=== PATIENT | male | born 1975 | race Caucasian/White ===

== ENCOUNTER → 2016-03-31 | Outpatient (CLI) | payer OTHER ==
[~2016-03-31] MED LIST: ATEN-175 PO; CALC0.2510 PO; DARB40IN3 INJ; FURO20TA PO; LOSA100T65 PO; MYCO500T4 PO; NIFE60TA57 PO; PRG1 PO; SODI650T8 PO; TACR1CAP PO; ULT50X PO
[2016-03-31 11:24] LABS: URINE APPEARANCE CLOUDY (CLEAR); URINE BILIRUBIN NEG (NEG); URINE COLOR YELLOW; URINE EPITHELIAL CELL AUTO 0-5 /lpf (0-5); URINE NITRITE NEG (NEG); URINE PH 5.5 (4.5-7.5); UROBILINOGEN NEG (NEG); ZZUR CULT IF INDIC CLEAN CATCH YES
[2016-03-31 11:30] LABS: MANUAL MICROSCOPIC REQUIRED? NO; REVIEW REQ? NO
[2016-03-31 12:15] LABS: URINE PROTIEN/CREAT RATIO 4.4 (0-0.2); URINE TOTAL PROTEIN 437.6 mg/dl (0-11.9)
== END | disposition home or self-care (01) ==
LOC: C.LAB1850 10:17
PROVIDERS: ATTEND Internal Medicine Nephrology
DX: R35.0 Frequency of micturition (principal)

== ENCOUNTER → 2016-08-10 | Outpatient (CLI) | payer OTHER ==
[~2016-08-10] MED LIST changes: -PRG1 PO; +TACR1CAP14 PO
[2016-08-10 12:44] LABS: URINE APPEARANCE CLOUDY (CLEAR); URINE BILIRUBIN NEG (NEG); URINE COLOR YELLOW; URINE EPITHELIAL CELL AUTO 0-5 /lpf (0-5); URINE NITRITE NEG (NEG); URINE PH 5.5 (4.5-7.5); URINE SPECIFIC GRAVITY 1.016 (1.000-1.030); UROBILINOGEN NEG (NEG); ZZUR CULT IF INDIC CLEAN CATCH YES
[2016-08-10 12:54] LABS: MANUAL MICROSCOPIC REQUIRED? NO; REVIEW REQ? NO
[2016-08-10 14:46] LABS: URINE PROTIEN/CREAT RATIO 1.8 (0-0.2); URINE TOTAL PROTEIN 210.8 mg/dl (0-11.9)
== END | disposition home or self-care (01) ==
LOC: C.LAB1850 11:08
PROVIDERS: ATTEND Internal Medicine Nephrology
DX: N18.6 End stage renal disease (principal)

== ENCOUNTER → 2016-08-24 | Outpatient (CLI) | payer OTHER ==
[2016-08-24 13:21] LABS: BASO % 0.7 %; BASO ABS # 0.04 K/uL (0-0.2); COMPLETE YES; EOS % 9.1 %; HEMATOCRIT 32.3 % (42-52); IG% 0.2 %; LYMPH % 16.9 %; LYMPH ABS # 1.04 K/uL (1.2-3.4); MEAN CORPUSCULAR HEMOGLOBIN 28.1 pg (25-34); MEAN CORPUSCULAR HGB CONC 31.9 g/dl (32-36); MEAN PLATELET VOLUME 10.9 fL (7.4-10.4); MONO % 10.2 %; NEUT % 62.9 %; PLATELET COUNT 196 K/uL (130-400); RED BLOOD COUNT 3.67 M/uL (4.7-6.1); WHITE BLOOD COUNT 6.15 K/uL (4.8-10.8)
--- NOTE | 2016-08-28 11:06 | CODING QUERY MEDICAL NECESSITY ---
SUPPORTING DIAGNOSIS NEEDED A supporting diagnosis is required for the test/procedure performed on this patient in order for us to be reimbursed by the patient's insurance. Please provide a supporting diagnosis for the following test/procedure listed below next to the test name along with your signature. *If there is no additional diagnosis for this patient that would support the following test/procedure please document that below next to the test/procedure. Test(s)/Procedure(s) that require a supporting diagnosis: * VITAMIN D, 25-HYDROXY DIAGNOSIS: Provider Signature: Date: Thank you Judi Dejes[employer] Once completed, please kindly fax back to [phone] For questions please call [phone]
[2016-08-29 09:35] LABS: FK506 TACROLIMUS HIGHLY SENS NEGATIVE <1 MCG/L (5-20)
== END | disposition home or self-care (01) ==
LOC: C.LAB1850 12:02
PROVIDERS: ATTEND Internal Medicine Nephrology
DX: N18.6 End stage renal disease (principal); Z94.0 Kidney transplant status; E55.9 Vitamin D deficiency, unspecified

== ENCOUNTER 2016-09-30 22:39 | Inpatient (IN) | payer OTHER ==
[~2016-09-30] VITALS: Ht 180.3 cm; Wt 74.6 kg
[~2016-09-30 22:39] MED LIST changes: -TACR1CAP14 PO
--- NOTE | 2016-09-30 23:13 | EMERGENCY ROOM VISIT NOTE ---
History Report prepared by [place]: Duran Burns Under the Supervision of: Dr. Maryjane Duenas D.O. First contact with patient: 23:02 Chief Complaint: OTHER COMPLAINT Stated Complaint: KIDNEY INFECTION History of Present Illness The patient is a 41 year old male who presents to the Emergency Room with complaints of moderately cloudy urine that began today. The patient is currently awaiting a kidney transplant and has a donor lined up. Because of this , he has not started on dialysis. However, he had his surgery postponed twice due to other circumstances. He just wants to make sure that he is healthy and that everything is normal. He notes that he is having chills and diaphoresis as well, but he did not take his temperature. He also states that he "does not feel right." He has had a UTI in the past, but states that this does not feel like a UTI because there is no pain. He denies any other abnormal urinary symptoms as well. He also denies any nausea, vomiting, chest pain, shortness of breath, abdominal pain, back pain, melena, hematochezia, diarrhea, or rashes. He denies any recent sick contacts. He denies any changes in his medications, and he has been keeping up with his current dosages. He does not know what his last creatinine result was. He also notes that he has been keeping up with his fluids. Source of History: patient Onset: today Position: other () Symptom Intensity: moderate Quality: other (Cloudy urine) Timing: constant Associated Symptoms: + chills, + diaphoresis, No fevers, No chest pain, No SOB, No nausea, No vomiting, No abdominal pain, No melena, No hematochezia, No diarrhea, No rash Review of Systems See HPI for pertinent positives & negatives. A total of 10 systems reviewed and were otherwise negative. Past Medical & Surgical Medical Problems: (1) Decreased GFR (2) Elevated serum creatinine (3) Hyperkalemia (4) Metabolic acidosis (5) Renal transplant disorder (6) Sepsis Surgical Problems: (1) History of kidney transplant Family History Patient reports no known family medical history. Social History Smoking Status: Never Smoker Drug Use: none Marital Status: single Housing Status: lives with family Occupation Status: employed Current/Historical Medications Scheduled Atenolol (Tenormin), 100 MG PO QPM Calcitriol (Rocaltrol Cap), 0.25 MCG PO 3XWK Darbepoetin Barrett-Polysorbate 8 (Aranesp Albumin Free), 1 DOSE INJ MONTHLY Furosemide (Lasix), 20 MG PO QAM Losartan Potassium (Cozaar), 100 MG PO QPM Mycophenolate Mofetil (Cellcept), 500 MG PO BID Nifedipine Ext Rel (Procardia Xl Ext Rel), 60 MG PO BID Sodium Bicarbonate (Sodium Bicarbonate), 650 MG PO BID Tacrolimus (Prograf), 4 MG PO BID Scheduled PRN Tramadol HCl (Tramadol HCl), 50 MG PO Q6 PRN for Pain Allergies Coded Allergies: Sulfamethoxazole w/Trimethoprim (Verified Allergy, Mild, Rash, 02/09/16) Physical Exam Vital Signs Date Time Temp Pulse Resp B/P (MAP) Pulse Ox O2 Delivery O2 Flow Rate FiO2 10/01/16 01:25 37.7 108 18 159/87 97 Room Air 10/01/16 01:06 37.7 09/30/16 23:30 109 18 159/90 98 Room Air 09/30/16 22:43 37.0 124 18 153/83 95 Room Air Physical Exam GENERAL: alert, well appearing, well nourished, no distress, non-toxic EYE EXAM: normal conjunctiva, PERRL and EOM's grossly intact OROPHARYNX: no exudate, no erythema, lips, buccal mucosa, and tongue normal and mucous membranes are moist NECK: supple, no nuchal rigidity, no adenopathy, non-tender LUNGS: Clear to auscultation. Normal chest wall mechanics HEART: no murmurs, S1 normal and S2 normal ABDOMEN: abdomen soft, non-tender, normo-active bowel sounds, no masses, no rebound or guarding. BACK: Back is symmetrical on inspection and there is no deformity, no midline tenderness, no CVA tenderness. SKIN: no rashes and no bruising UPPER EXTREMITIES: upper extremities are grossly normal. LOWER EXTREMITIES: No pitting edema. NEURO EXAM: Normal sensorium, cranial nerves II-XII grossly intact, normal speech, no gross weakness of arms, no gross weakness of legs. Medical Decision & Procedures ER Provider Diagnostic Interpretation: Radiology results have been interpreted by me. CHEST/ABDOMEN X-RAY: No cardiomegaly, no pulmonary effusion, no widened mediastina, no focal infiltrates. No definite small bowel obstruction, scattered stool, no free air. Per pa Laboratory Results Test 09/30/16 23:20 Immature Granulocyte % (Auto) 0.2 % White Blood Count 9.79 K/uL (4.8-10.8) Red Blood Count 3.33 M/uL (4.7-6.1) Hemoglobin 9.5 g/dL (14.0-18.0) Hematocrit 28.4 % (42-52) Mean Corpuscular Volume 85.3 fL (80-100) Mean Corpuscular Hemoglobin 28.5 pg (25-34) Mean Corpuscular Hemoglobin Concent 33.5 g/dl (32-36) Platelet Count 224 K/uL (130-400) Mean Platelet Volume 10.1 fL (7.4-10.4) Neutrophils (%) (Auto) 67.7 % Lymphocytes (%) (Auto) 15.7 % Monocytes (%) (Auto) 9.3 % Eosinophils (%) (Auto) 6.7 % Basophils (%) (Auto) 0.4 % Neutrophils # (Auto) 6.62 K/uL (1.4-6.5) Lymphocytes # (Auto) 1.54 K/uL (1.2-3.4) Monocytes # (Auto) 0.91 K/uL (0.11-0.59) Eosinophils # (Auto) 0.66 K/uL (0-0.5) Basophils # (Auto) 0.04 K/uL (0-0.2) Immature Granulocyte # (Auto) 0.02 K/uL (0.00-0.02) Prothrombin Time 10.3 SECONDS (9.0-12.0) Prothromb Time International Ratio 1.0 (0.9-1.1) Urine Color YELLOW Urine Appearance TURBID (CLEAR) Urine pH 5.5 (4.5-7.5) Urine Specific [place] 1.015 (1.000-1.030) Urine Protein 3+ (NEG) Urine Glucose (UA) NEG (NEG) Urine Ketones NEG (NEG) Urine Occult Blood 3+ (NEG) Urine Nitrite NEG (NEG) Urine Bilirubin NEG (NEG) Urine Urobilinogen NEG (NEG) Urine Leukocyte Esterase LARGE (NEG) Urine WBC (Auto) >30 /hpf (0-5) Urine RBC (Auto) >30 /hpf (0-4) Urine Hyaline Casts (Auto) 0 /lpf (0-5) Urine Epithelial Cells (Auto) >30 /lpf (0-5) Urine Bacteria (Auto) NEG (NEG) Urine Pathogenic Casts /lpf (0) Urine Yeast (Auto) (NONE PRSENT) Magnesium Level 2.1 mg/dl (1.8-2.4) Total Bilirubin 0.3 mg/dl (0.2-1) Aspartate Amino Transf (AST/SGOT) 14 U/L (15-37) Alanine Aminotransferase (ALT/SGPT) 12 U/L (12-78) Alkaline Phosphatase 72 U/L (45-117) Total Protein 7.2 gm/dl (6.4-8.2) Albumin 2.7 gm/dl (3.4-5.0) Globulin 4.5 gm/dl (2.5-4.0) Albumin/Globulin Ratio 0.6 (0.9-2) Monoscreen NEG (NEG) Laboratory results per my review. Medications Administered Medications (Trade) Dose Ordered Sig/Willy Route Start Time Stop Time Status Last Admin Dose Admin Sodium Chloride 1,000 ml @ 250 mls/hr Q4H STAT IV 10/01/16 00:57 10/01/16 04:56 DC 10/01/16 01:19 250 MLS/HR Ceftriaxone Sodium (Rocephin Inj) 1 gm NOW STAT IV 10/01/16 01:23 10/01/16 01:24 DC 10/01/16 01:34 1 GM Acetaminophen (Tylenol Tab) 1,000 mg NOW STAT PO 10/01/16 01:28 10/01/16 01:29 DC 10/01/16 01:34 1,000 MG ECG Indication: diaphoresis Rate (beats per minute): 106 Rhythm: sinus tachycardia Findings: no acute ischemic change, no ectopy (Normal axis, normal interval) ED Course 2302: The patient was evaluated in room B8. A complete history and physical exam was performed. 0057: Ordered Sodium Chloride 1000 ml @ 250 mls/hr IV 0123: Ordered Rocephin Inj 1 gm IV 0128: Ordered Tylenol Tab 1000 mg PO 0205: Upon reevaluation, the patient is resting. I discussed the findings and the treatment plan with the patient. He expresses agreement and understanding. I spoke with Dr. Dominguez of the [facility] Hospitalist Service. He will be evaluated for further management. Medical Decision Patient with complicated renal history status post prior transplant and on transplant list again a [facility]. Patient states taking all medications as prescribed, however today began feeling worse and concern for possible infection. Patient's urine concerning for possible evolving infection, creatinine appears worse than prior. Patient states recent outpatient creatinine was 7. Patient currently not doing hemodialysis, sees Dr. Kaur for nephrology locally. Prior cultures of urine and 2016 grown staph aureus that was pansensitive. Patient was initially given one dose of Rocephin here given concern for worsening renal function, and known sulfa allergy. Both blood and urine cultures sent as a precaution. Other labs reassuring, no hyperkalemia or indication for emergent dialysis. Patient's heart rate improved here, blood pressure stable, doubt bacteremia/sepsis. Patient admitted to medicine, discussed renal consult. Patient aware of all findings and agreeable with plan. Doubt other GI or vascular pathology. No evidence for acute congestive heart failure. Medication Reconcilliation Current Medication List: was personally reviewed by me Blood Pressure Screening Patient's blood pressure: Elevated blood pressure Blood pressure disposition: Referred to PCP Consults Time Called: 0200 Consulting Physician: Dr. Dominguez - [facility] Returned Call: [phone] He will be evaluating the patient for further management and care. Impression Primary Impression: Acute on chronic kidney failure Additional Impression: UTI (urinary tract infection) Scribe Attestation The scribe's documentation has been prepared under my direction and personally reviewed by me in its entirety. I confirm that the note above accurately reflects all work, treatment, procedures, and medical decision making performed by me. Departure Information Dispostion Being Evaluated By Hospitalist Referrals Gabi Aragon M.D. (PCP) Patient Instructions My [facility] Problem Qualifiers Primary Impression: Acute on chronic kidney failure Acute renal failure type: unspecified Chronic kidney disease stage: unspecified stage Qualified Codes: N17.9 - Acute kidney failure, unspecified; N18.9 - Chronic kidney disease, unspecified Additional Impression: UTI (urinary tract infection) Urinary tract infection type: acute cystitis Hematuria presence: with hematuria Qualified Codes: N30.01 - Acute cystitis with hematuria
[2016-09-30 23:41] LABS: BASO % 0.4 %; BASO ABS # 0.04 K/uL (0-0.2); COMPLETE YES; EOS % 6.7 %; HEMATOCRIT 28.4 % (42-52); IG% 0.2 %; LYMPH % 15.7 %; LYMPH ABS # 1.54 K/uL (1.2-3.4); MEAN CELL VOLUME 85.3 fL (80-100); MEAN CORPUSCULAR HEMOGLOBIN 28.5 pg (25-34); MEAN CORPUSCULAR HGB CONC 33.5 g/dl (32-36); MEAN PLATELET VOLUME 10.1 fL (7.4-10.4); MONO % 9.3 %; NEUT % 67.7 %; PLATELET COUNT 224 K/uL (130-400); RED BLOOD COUNT 3.33 M/uL (4.7-6.1); WHITE BLOOD COUNT 9.79 K/uL (4.8-10.8)
[2016-09-30 23:52] LABS: PROTHROMBIN TIME (PATIENT) 10.3 SECONDS (9.0-12.0)
[2016-09-30 23:55] LABS: URINE APPEARANCE TURBID (CLEAR); URINE BILIRUBIN NEG (NEG); URINE COLOR YELLOW; URINE EPITHELIAL CELL AUTO >30 /lpf (0-5); URINE NITRITE NEG (NEG); URINE PH 5.5 (4.5-7.5); URINE SPECIFIC GRAVITY 1.015 (1.000-1.030); UROBILINOGEN NEG (NEG); ZZUR CULT IF INDIC CLEAN CATCH YES
[2016-10-01] LABS: MANUAL MICROSCOPIC REQUIRED? NO; REVIEW REQ? YES
[2016-10-01 00:25] LABS: ALB/GLOB RATIO 0.6 (0.9-2); BUN/CREATININE RATIO 8.4 (10-20); CALCIUM 8.3 mg/dl (8.5-10.1); CREATININE 8.7 mg/dl (0.60-1.40); MAGNESIUM 2.1 mg/dl (1.8-2.4); POTASSIUM 4.1 mmol/L (3.5-5.1)
[2016-10-01] MEDS ORDERED: SODIUM CHLORIDE 0.9% 1000ML 1,000 ML IV STA (00:57)
[2016-10-01] MEDS ORDERED: CEFTRIAXONE SOD INJ 1 GM ADDVIAL IV STA (01:23)
[2016-10-01] MEDS ORDERED: ACETAMINOPHEN 500 MG TAB PO STA (01:28)
[2016-10-01] MEDS ORDERED: POLYETHYLENE (MIRALAX) 17 GM PACK PO PRN (03:15)
[2016-10-01] MEDS ORDERED: ACETAMINOPHEN 325 MG TAB PO PRN (03:15)
[2016-10-01] MEDS ORDERED: ZOLPIDEM TARTRATE 5 MG TAB PO PRN ×2 (03:15)
[2016-10-01] MEDS ORDERED: ALUMINUM/MAGNESIUM/SIMETH (MAALOX MAX) 30 ML UDC PO PRN (03:15)
[2016-10-01] MEDS ORDERED: ONDANSETRON INJ 2 MG/ML 2 ML VIAL IV PRN (03:15)
[2016-10-01] MEDS ORDERED: TRAMADOL HCL 50 MG TAB PO PRN (03:15)
[2016-10-01] MEDS ORDERED: MAGNESIUM HYDROXIDE SUSP 30 ML UDC PO PRN (03:15)
--- NOTE | 2016-10-01 03:28 | History and Physical ---
History & Physical Date & Time of Service: Oct 01, 2016 at 02:55 Chief Complaint: Kidney Infection Primary Care Physician: Gabi Aragon M.D. History of Present Illness Source: patient 41M with a PMHx of renal transplant at age 17 p/w a one day history of weakness and cloudy urine. The sees Dr. Kaur as outpatient. He is on a kidney donor list and has had his transplant delayed twice in [place] for unknown reasons. The pt states that in the past year or so his creatinine has slowly climbed from 2-3 to over 7. He has had dialysis and has a fistula in his right antecubital fossa, he however has had his dialysis postponed recently because the thinking was that he was going to go for a renal transplant. he currently still has his two biological kidneys and a transplanted kidney in his lower right abdomen. He denies any focal complaints. He is not in any pain anywhere. Of note he has had around 4 UTIs in the past year and he does not know why he gets them. He doesn't have a lifelong history of UTIs. Cultures on previous cultures grew cabrera sensitive Staph Aureus. He is allergic to Bactrim. He has had dysuria in the past with his previous UTIs, denies having dysuria now. ROS: No chest pain, no SOB, no dyspnea on exertion, no palpitations, no fevers, no chills, no nausea, no vomiting, no diarrhea, no dysuria, no rash. SHx: Not presently working, non smoker, does not drink alcohol. Past Medical/Surgical History Surgical Problems: (1) History of kidney transplant Status: Chronic Family History Patient reports no known family medical history. Social History Smoking Status: Never Smoker Smokeless Tobacco Use: No Alcohol Use: none Drug Use: none Marital Status: single Occupational Status: employed Immunizations History of Influenza Vaccine: Unknown History of Tetanus Vaccine?: Unknown History of Pneumococcal: Unknown History of Hepatitis B Vaccine: Unknown Multi-Drug Resistant Organisms History of MDRO: No Allergies Coded Allergies: Sulfamethoxazole w/Trimethoprim (Verified Allergy, Mild, Rash, 02/09/16) Home Medications Scheduled Atenolol (Tenormin), 100 MG PO QPM Calcitriol (Rocaltrol Cap), 0.25 MCG PO 3XWK Darbepoetin Barrett-Polysorbate 8 (Aranesp Albumin Free), 1 DOSE INJ MONTHLY Furosemide (Lasix), 20 MG PO QAM Losartan Potassium (Cozaar), 100 MG PO QPM Mycophenolate Mofetil (Cellcept), 500 MG PO BID Nifedipine Ext Rel (Procardia Xl Ext Rel), 60 MG PO BID Sodium Bicarbonate (Sodium Bicarbonate), 650 MG PO BID Tacrolimus (Prograf), 4 MG PO BID Scheduled PRN Tramadol HCl (Tramadol HCl), 50 MG PO Q6 PRN for Pain Review of Systems Constitutional: No fever, No chills Respiratory: No cough, No sputum, No wheezing, No shortness of breath Cardiovascular: No chest pain Abdomen: No pain, No nausea, No vomiting Musculoskeletal: No joint pain, No swelling, No calf pain Genitourinary - Male: No hematuria, No dysuria, No urinary frequency, No urinary urgency, No urinary hesitancy Psychiatric: No depression symptoms Integumentary: No rash, No itch Physical Exam Vital Signs Date Time Temp Pulse Resp B/P (MAP) Pulse Ox O2 Delivery O2 Flow Rate FiO2 10/01/16 01:25 37.7 108 18 159/87 97 Room Air 10/01/16 01:06 37.7 09/30/16 23:30 109 18 159/90 98 Room Air 09/30/16 22:43 37.0 124 18 153/83 95 Room Air General Appearance: WD/WN, no apparent distress Respiratory/Chest: chest non-tender, lungs clear, normal breath sounds, no respiratory distress, no accessory muscle use Cardiovascular: regular rate, rhythm, no edema, no gallop, no JVD, no murmur, normal peripheral pulses Abdomen/GI: normal bowel sounds, non tender, no organomegaly, no pulsatile mass , + pertinent finding (hard abdomen, no gaurding, non tender.) Back: normal inspection, no CVA tenderness, no muscle spasm Extremities/Musculoskelatal: normal inspection, no calf tenderness, no pedal edema, + pertinent finding (AV fistula in place in R antecubital fossa) Neurologic/Psych: gin pole operator II-XII nml as tested, no motor/sensory deficits, alert, normal mood/affect, normal reflexes, oriented x 3 Diagnostics Laboratory Results Results Past 24 Hours Test 09/30/16 23:20 Range/Units White Blood Count 9.79 4.8-10.8 K/uL Red Blood Count 3.33 4.7-6.1 M/uL Hemoglobin 9.5 14.0-18.0 g/dL Hematocrit 28.4 42-52 % Mean Corpuscular Volume 85.3 80-100 fL Mean Corpuscular Hemoglobin 28.5 25-34 pg Mean Corpuscular Hemoglobin Concent 33.5 32-36 g/dl Platelet Count 224 130-400 K/uL Mean Platelet Volume 10.1 7.4-10.4 fL Neutrophils (%) (Auto) 67.7 % Lymphocytes (%) (Auto) 15.7 % Monocytes (%) (Auto) 9.3 % Eosinophils (%) (Auto) 6.7 % Basophils (%) (Auto) 0.4 % Neutrophils # (Auto) 6.62 1.4-6.5 K/uL Lymphocytes # (Auto) 1.54 1.2-3.4 K/uL Monocytes # (Auto) 0.91 0.11-0.59 K/uL Eosinophils # (Auto) 0.66 0-0.5 K/uL Basophils # (Auto) 0.04 0-0.2 K/uL RDW Standard Deviation 46.1 36.4-46.3 fL RDW Coefficient of Variation 14.5 11.5-14.5 % Immature Granulocyte % (Auto) 0.2 % Immature Granulocyte # (Auto) 0.02 0.00-0.02 K/uL Prothrombin Time 10.3 9.0-12.0 SECONDS Prothromb Time International Ratio 1.0 0.9-1.1 Urine Color YELLOW Urine Appearance TURBID CLEAR Urine pH 5.5 4.5-7.5 Urine Specific [place] 1.015 1.000-1.030 Urine Protein 3+ NEG Urine Glucose (UA) NEG NEG Urine Ketones NEG NEG Urine Occult Blood 3+ NEG Urine Nitrite NEG NEG Urine Bilirubin NEG NEG Urine Urobilinogen NEG NEG Urine Leukocyte Esterase LARGE NEG Urine WBC (Auto) >30 0-5 /hpf Urine RBC (Auto) >30 0-4 /hpf Urine Hyaline Casts (Auto) 0 0-5 /lpf Urine Epithelial Cells (Auto) >30 0-5 /lpf Urine Bacteria (Auto) NEG NEG Urine Pathogenic Casts 0 /lpf Urine Yeast (Auto) NONE PRSENT Sodium Level 139 136-145 mmol/L Potassium Level 4.1 3.5-5.1 mmol/L Chloride Level 110 98-107 mmol/L Carbon Dioxide Level 17 21-32 mmol/L Anion Gap 12.0 3-11 mmol/L Blood Urea Nitrogen 73 7-18 mg/dl Creatinine 8.70 0.60-1.40 mg/dl Est Creatinine Clear Calc Drug Dose 11.7 ml/min Estimated GFR () 7.8 Estimated GFR (Non- 6.7 BUN/Creatinine Ratio 8.4 10-20 Random Glucose 111 70-99 mg/dl Calcium Level 8.3 8.5-10.1 mg/dl Magnesium Level 2.1 1.8-2.4 mg/dl Total Bilirubin 0.3 0.2-1 mg/dl Aspartate Amino Transf (AST/SGOT) 14 15-37 U/L Alanine Aminotransferase (ALT/SGPT) 12 12-78 U/L Alkaline Phosphatase 72 45-117 U/L Total Protein 7.2 6.4-8.2 gm/dl Albumin 2.7 3.4-5.0 gm/dl Globulin 4.5 2.5-4.0 gm/dl Albumin/Globulin Ratio 0.6 0.9-2 Monoscreen NEG NEG Microbiology Results 10/01/16 Blood Culture, Received Pending 10/01/16 Blood Culture, Received Pending 09/30/16 Urine Culture, Received Pending Impression Assessment and Plan 41M with a PMHx of renal transplant at age 17 p/w a one day history of weakness and cloudy urine. Creatinine is 8.7. UA is dirty, will send for culture. Starting on Zosyn and Vanco empirically. Nephro (Dr. Kaur) consulted. Elevated Creatinine 2/2 renal failure - Nephro (Dr. Kaur) on board. - Creatinine is 8.7, prior to February 2016 baseline appeared to be from 3-4. - Pt has had dialysis in the past, will likely need to be dialyzed. Sepsis 2/2 UTI - Urine had LE and WBC, will send for culture. - Previous cultures grew Staph Aureus. - Has had 4 UTIs in the past year. - Will treat with Zosyn and Vancomycin. - Follow up blood cultures. - Follow up MRSA swab. S/p Renal Transplant continue home medication regime: - Atenolol 100mg PO QPM - Calcitriol 0.25mcg PO 3xweek. (M,W,F) - Lasix 20mg PO QAM - Losartan 100mg PO QPM - Mycophenolate Mofetil 500mg PO BID - Nifedipine 60mg PO BID - Sodium Bicarb 650mg PO BID - Tacrolimus 4mg PO BID Diet - Renal Diet DVT Proph: Hep SQ BID, SCDs Dispo: Med Surg Full Code Attending Addendum: I have physically seen and examined this patient, have supervised the medical residents activities, and agree with the H&P as noted above with the following exceptions: NONE The patient is awake, well-developed and adequately nourished, alert and oriented 3, normocephalic and atraumatic, lying in bed and in no acute distress. HEENT--PERRL, EOMI, mucous membranes and oropharynx normal. Neck--supple, no JVD or bruits, thyroid normal, trachea midline, no adenopathy. Heart--normal S1 and S2, no extra beats, no murmurs, rubs or gallops. Lungs--clear bilaterally with good air movement, no respiratory distress, no accessory muscle use. Abdomen--normal bowel sounds and soft, nontender and nondistended, no hernias or masses, no organomegaly. Extremities--no cyanosis, clubbing or edema. There are good distal pulses b/l. Dermatologic--normal skin turgor, normal color, warm and dry, no abnormal lymph nodes, no rash. Neurologic--cranial nerves II through XII grossly intact, motor and sensory examination normal. Rheumatologic--normal range of motion, nontender, muscles and joints. Psychiatric--normal affect. Assessment and Plan: 1. Status post renal transplant/acute on chronic renal transplant failure/UTI/ hypertension--patient be admitted to the medical surgical floor. History of staph aureus UTI among 4 UTIs in the past year. Empiric Treatment vancomycin IV and Zosyn IV. Follow urine culture and sensitivities, and blood cultures. Continue atenolol 100 mg by mouth every evening, losartan 100 mg by mouth every evening, nifedipine 60 mg by mouth twice a day, sodium bicarbonate 650 mg by mouth twice a day, Lasix 20 mg by mouth every morning, tacrolimus 4 mg by mouth twice a day and mycophenolate 500 mg by mouth twice a day. Consult his slitter and rewinder Dr. Kaur. Level of Care Med/Surg Advanced Directives Existing Advance Directive: No Existing Living Will: No Existing Power of Inspector Mechanical: No Resuscitation Status FULL RESUSCITATION VTE Prophylaxis Risk Level: Moderate Given or contraindicated: SCD's Social Service Consult None Apply Resident Involvement: Resident Care Provided Care Provided: Adult Hospital Medicine
[2016-10-01] MEDS ORDERED: VANCOMYCIN CONSULT ACTIVE PRN (03:45)
[2016-10-01] MEDS ORDERED: PIPERACILL/TAZOBAC CONSULT ACTIVE PRN (04:00)
[2016-10-01 04:54] VITALS: BP 165/87; PULSE 98; TEMP 37.1; Ht 180.3 cm; Wt 74.6 kg
[2016-10-01 04:56] VITALS: O2SAT 99
[2016-10-01] MEDS ORDERED: VANCOMYCIN INJ 1,600 MG in SODIUM CHLORIDE 0.9% 500ML 500 ML IV ONE (05:45)
[2016-10-01] MEDS ORDERED: PIPERACILL/TAZOBAC IV 3.375 GM in DEXTROSE 5% 100ML 100 ML IV ONE (05:45)
--- NOTE | 2016-10-01 05:45 | DIAGNOSTIC IMAGING REPORT ---
ABDOMEN 2VIEW W/PA CHEST RTN CLINICAL HISTORY: subjective f/c dyspnea COMPARISON STUDY: No previous studies for comparison. FINDINGS: Moderate increase in fecal load a sending and transverse colon. Nonobstructive bowel pattern. Lungs are clear. Diaphragms smooth. IMPRESSION: 1. Negative chest. 2. Increased fecal load within the a sending and transverse colon The above report was generated using voice recognition software. It may contain grammatical, syntax or spelling errors. Electronically signed by: Declan Copeland M.D. 10/01/2016 5:44 AM Dictated Date/Time: 10/01/2016 5:41 AM
[2016-10-01] MEDS: HEPARIN SOD 5000 UNIT/0.5 ML CARP SQ SCH ×3 (06:00→20:38)
[2016-10-01 07:14] VITALS: BP 158/79; PULSE 91; TEMP 36.9; O2SAT 99
[2016-10-01 07:54] LABS: HEMATOCRIT 26.3 % (42-52); MEAN CELL VOLUME 85.7 fL (80-100); MEAN CORPUSCULAR HEMOGLOBIN 28.7 pg (25-34); MEAN CORPUSCULAR HGB CONC 33.5 g/dl (32-36); MEAN PLATELET VOLUME 9.9 fL (7.4-10.4); PLATELET COUNT 184 K/uL (130-400); RED BLOOD COUNT 3.07 M/uL (4.7-6.1); WHITE BLOOD COUNT 8.08 K/uL (4.8-10.8)
[2016-10-01 08:00] VITALS: O2SAT 99
[2016-10-01 08:36] LABS: BUN/CREATININE RATIO 8.7 (10-20); CREATININE 8.4 mg/dl (0.60-1.40); POTASSIUM 4.5 mmol/L (3.5-5.1)
[2016-10-01] MEDS ORDERED: MYCOPHENOLATE MOFETIL 250 MG CAP (CELLCEPT) PO SCH (09:00)
[2016-10-01] MEDS ORDERED: TACROLIMUS 1 MG CAP PO SCH (09:00)
[2016-10-01] MEDS ORDERED: CALCITRIOL 0.25 MCG CAP PO SCH (09:00)
[2016-10-01] MEDS ORDERED: SODIUM BICARBONATE 650 MG TAB PO SCH (09:00)
[2016-10-01] MEDS: FUROSEMIDE 20 MG TAB PO SCH (09:00)
[2016-10-01] MEDS: PIPERACILL/TAZOBAC IV 3.375 GM in DEXTROSE 5% 100ML 100 ML IV SCH ×2 (11:31→23:20)
--- NOTE | 2016-10-01 12:03 | Nephrology Consultation ---
Nephrology Consultation Date & Providers Date of Consultation: Oct 01, 2016. Primary Care Provider: Gabi Aragon M.D. Referring Provider: Reason for Consultation ESRD with functional renal transplant History of Present Illness Mr. 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 He underwent donor kidney transplant at the age of 17. Prior to transplant he was maintained on both HD and PD. He noted preference for HD if dialysis is needed. He has a functional renal allograft with advanced impairment (creatinine was 5.6 mg/dL on August 23). Transplant was performed at [facility]. nutrition coordinator is Kasey Hood ([phone]). Suraj has been scheduled for a second living donor transplant. This was originally scheduled for September 15 but this was postponed due to the surgeon needing to reschedule. Suraj was then involved in a pretransplant evaluation for persistent pyuria and microscopic hematuria. Suraj now reports, after being rescheduled twice, living-donor transplant is currently scheduled for October 24. He reports that sometime between September 15 and a cystoscopy with bladder biopsy was performed at [facility] with reportedly showed non specific inflammation. He has also undergone urologic evaluation by Dr. Gonzalez locally. Suraj has a complicated history of pyuria and microscopic hematuria. Suraj was admitted to [facility] in February 2016 with dysuria as well as suprapubic tenderness. He received IV daptomycin and was eventually discharged home on oral Keflex. He completed 7 days of Keflex. Culture was positive for pansensitive staph. Unfortunately, symptoms did not initially improve and he was readmitted with persistent urinary frequency and discomfort with notable suprapubic pain and some mild tenderness over the lateral aspect of his renal allograft. Culture on admission negative. He received daptomycin and reported some improvement in symptoms during the hospitalization. Bladder infused antibiotic therapy was considered but ultimately deferred. He has been treated with extended course of Augmentin and cephalexin since that time and persistent symptoms of frequency and urgency did eventually improve. CT scan as well as renal ultrasound were obtained documenting mild dilation of the renal collecting system in his allograft. Resistive indices in the transplanted kidney were normal. Mr. Platt has had several episodes of gross hematuria over the past year. He was experiencing frequency and nocturia during most of these episodes. He describes episodes of passing bright pink urine which resolved within 24 hours. There was persistent microscopic hematuria. Urine cytology was previously negative for malignancy. CT the abdomen and pelvis did not show any other obvious pathologic etiology. Suraj presented to [facility] yesterday with changes in his urine, weakness, feeling cold and discomfort with voiding. He reported turbid, foul smelling urine. He denied gross hematuria or clots. He denies specific dysuria. He does not have suprapubic or bladder tenderness. He denies flank pain. He did not have specific fevers or shaking chills. Suraj had spent 2 days with friends and was without NaHCO3 for a couple of days. He has been taking tacrolimus and his antihypertensive medications. Suraj states his appetite is slightly decreased but fair. He has had a bad taste in his mouth for the past 24 hours. He denies anorexia or nausea. He denies abdominal pain, constipation or diarrhea. He has not been sleeping well. He reports some insomnia and daytime fatigue. Activity tolerance has not recently changed and is reportedly acceptable. He has a chronic metabolic acidosis as well as anemia of CKD and CKD/MBD with secondary hyperparathyroidism. Past medical history is also notable for hypertension. In preparation for potential dialysis, he underwent cephalic vein AVF placement on Jul [address] Rodrigues. He has completed initial TOPs education with Sara Duenas. He has requested in-center HD at [facility] in [place] if he needs dialysis. 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 Rodrigues), HD catheter and PD catheter placement Allergies Coded Allergies: Sulfamethoxazole w/Trimethoprim (Verified Allergy, Mild, Rash, 02/09/16) Inpatient Medications Current Inpatient Medications Medications (Trade) Dose Ordered Sig/Willy Route Start Time Stop Time Status Last Admin Dose Admin Heparin Sodium (Porcine) (Heparin Sq 5000 Unit/0.5ml) 5,000 unit Q8H SQ 10/01/16 06:00 10/31/16 05:59 Acetaminophen (Tylenol Tab) 650 mg Q4H PRN PO 10/01/16 03:15 10/31/16 03:14 Al Hydrox/Mg Hydrox/Simethicone (Maalox Max Susp) 15 ml Q4H PRN PO 10/01/16 03:15 10/31/16 03:14 Magnesium Hydroxide (Milk Of Magnesia Susp) 30 ml Q6H PRN PO 10/01/16 03:15 10/31/16 03:14 Polyethylene (Miralax Powder Packet) 17 gm DAILY PRN PO 10/01/16 03:15 10/31/16 03:14 Zolpidem Tartrate (Ambien Tab) 5 mg HSZ PRN PO 10/01/16 03:15 10/31/16 03:14 Ondansetron HCl (Zofran Inj) 4 mg Q6H PRN IV 10/01/16 03:15 10/31/16 03:14 Zolpidem Tartrate (Ambien Tab) 5 mg HSZ PRN PO 10/01/16 03:15 10/31/16 03:14 Piperacillin Sod/ Tazobactam Sod 3.375 gm/Dextrose 115 ml @ 28.75 mls/ hr Q12@0000,1200 IV 10/01/16 12:00 10/11/16 11:59 Atenolol (Tenormin Tab) 100 mg QPM PO 10/01/16 21:00 10/31/16 20:59 Furosemide (Lasix Tab) 20 mg QAM PO 10/01/16 09:00 10/31/16 08:59 Losartan Potassium (coZAAR TAB) 100 mg QPM PO 10/01/16 21:00 10/31/16 20:59 Mycophenolate Mofetil (Cellcept Cap) 500 mg BID PO 10/01/16 09:00 10/31/16 08:59 10/01/16 08:05 500 MG Nifedipine (Procardia Xl Tab) 60 mg BID PO 10/01/16 09:00 10/31/16 08:59 Sodium Bicarbonate (Sodium Bicarbonate Tab) 650 mg BID PO 10/01/16 09:00 10/31/16 08:59 10/01/16 08:04 650 MG Tacrolimus (Prograf Cap) 4 mg BID PO 10/01/16 09:00 10/31/16 08:59 10/01/16 08:05 4 MG Tramadol HCl (Ultram Tab) 50 mg Q6 PRN PO 10/01/16 03:15 10/31/16 03:14 Calcitriol (Rocaltrol Cap) 0.25 mcg MoWeFr@0900 PO 10/02/16 09:00 11/01/16 08:59 Vancomycin HCl (Consult) 1 ea UD PRN N/A 10/01/16 03:45 10/31/16 03:44 Piperacillin Sod/ Tazobactam Sod (Consult) 1 ea UD PRN N/A 10/01/16 04:00 10/31/16 03:59 Family History Patient reports no known family medical history. Social History Smoking Status: Unknown if Ever Smoked Drug Use: none Marital Status: single Occupation: employed Review of Systems A complete review of systems was performed. Pertinent positives are noted above. All other systems are negative. Physical Exam Date Time Temp Pulse Resp B/P (MAP) Pulse Ox O2 Delivery O2 Flow Rate FiO2 10/01/16 08:00 99 Room Air 10/01/16 07:14 36.9 91 18 158/79 (105) 99 Room Air 10/01/16 04:56 99 Room Air 10/01/16 04:54 37.1 98 98 165/87 10/01/16 03:32 36.6 105 18 162/83 97 Room Air 10/01/16 01:25 37.7 108 18 159/87 97 Room Air 10/01/16 01:06 37.7 09/30/16 23:30 109 18 159/90 98 Room Air 09/30/16 22:43 37.0 124 18 153/83 95 Room Air General Appearance: WD/WN, no apparent distress Head: normocephalic, atraumatic Eyes: normal inspection, sclerae normal ENT: normal ENT inspection, pharynx normal Neck: supple, no JVD Respiratory/Chest: lungs clear, no respiratory distress, no accessory muscle use Cardiovascular: regular rate, rhythm Abdomen/GI: non tender, soft, + pertinent finding (Allograft without tenderness or bruit) Back: normal inspection, no CVA tenderness Extremities/Musculoskelatal: normal inspection, no pedal edema, + pertinent finding (AVF with thrill and bruit) Neurologic/Psych: alert, oriented x 3 Laboratory Results Last 24 Hours Test 09/30/16 23:20 10/01/16 07:32 White Blood Count 9.79 K/uL 8.08 K/uL Red Blood Count 3.33 M/uL 3.07 M/uL Hemoglobin 9.5 g/dL 8.8 g/dL Hematocrit 28.4 % 26.3 % Mean Corpuscular Volume 85.3 fL 85.7 fL Mean Corpuscular Hemoglobin 28.5 pg 28.7 pg Mean Corpuscular Hemoglobin Concent 33.5 g/dl 33.5 g/dl Platelet Count 224 K/uL 184 K/uL Mean Platelet Volume 10.1 fL 9.9 fL Neutrophils (%) (Auto) 67.7 % Lymphocytes (%) (Auto) 15.7 % Monocytes (%) (Auto) 9.3 % Eosinophils (%) (Auto) 6.7 % Basophils (%) (Auto) 0.4 % Neutrophils # (Auto) 6.62 K/uL Lymphocytes # (Auto) 1.54 K/uL Monocytes # (Auto) 0.91 K/uL Eosinophils # (Auto) 0.66 K/uL Basophils # (Auto) 0.04 K/uL RDW Standard Deviation 46.1 fL 45.6 fL RDW Coefficient of Variation 14.5 % 14.6 % Immature Granulocyte % (Auto) 0.2 % Immature Granulocyte # (Auto) 0.02 K/uL Prothrombin Time 10.3 SECONDS Prothromb Time International Ratio 1.0 Urine Color YELLOW Urine Appearance TURBID Urine pH 5.5 Urine Specific [place] 1.015 Urine Protein 3+ Urine Glucose (UA) NEG Urine Ketones NEG Urine Occult Blood 3+ Urine Nitrite NEG Urine Bilirubin NEG Urine Urobilinogen NEG Urine Leukocyte Esterase LARGE Urine WBC (Auto) >30 /hpf Urine RBC (Auto) >30 /hpf Urine Hyaline Casts (Auto) 0 /lpf Urine Epithelial Cells (Auto) >30 /lpf Urine Bacteria (Auto) NEG Urine Pathogenic Casts /lpf Urine Yeast (Auto) Sodium Level 139 mmol/L 140 mmol/L Potassium Level 4.1 mmol/L 4.5 mmol/L Chloride Level 110 mmol/L 113 mmol/L Carbon Dioxide Level 17 mmol/L 16 mmol/L Anion Gap 12.0 mmol/L 11.0 mmol/L Blood Urea Nitrogen 73 mg/dl 73 mg/dl Creatinine 8.70 mg/dl 8.40 mg/dl Est Creatinine Clear Calc Drug Dose 11.7 ml/min 12.1 ml/min Estimated GFR () 7.8 8.1 Estimated GFR (Non- 6.7 7.0 BUN/Creatinine Ratio 8.4 8.7 Random Glucose 111 mg/dl 89 mg/dl Calcium Level 8.3 mg/dl 8.0 mg/dl Magnesium Level 2.1 mg/dl Total Bilirubin 0.3 mg/dl Aspartate Amino Transf (AST/SGOT) 14 U/L Alanine Aminotransferase (ALT/SGPT) 12 U/L Alkaline Phosphatase 72 U/L Total Protein 7.2 gm/dl Albumin 2.7 gm/dl Globulin 4.5 gm/dl Albumin/Globulin Ratio 0.6 Monoscreen NEG C-Reactive Protein 5.37 mg/dl Impression (1) ESRD (end stage renal disease) (2) Renal transplant disorder (3) Decreased GFR (4) Metabolic acidosis (5) UTI (urinary tract infection) (6) Anemia Mr. Platt is a 40-year-old male with end-stage renal disease due to a history of IgA/HSP. 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 He was hoping to have a preemptive living donor transplant but this has unfortunately been delayed. It is currently scheduled for October 24. There is no emergent need to start dialysis but Suraj is approaching need for additional renal replacement therapy. We will need to update his transplant team of his current status. Also records regarding his recent workup for his history of persistent pyuria and chronic/recurrent cystitis will need to be obtained from [facility]. In the interim, he has been started on Zosyn for current UTI. Cultures are pending. Clinically, symptoms are improving. Metabolic profile will be monitored. Immunosuppression adjusted. If symptoms do not improve or metabolic profile worsens dialysis can be initiated while inpatient. Suraj is agreeable to this plan of care. He has a chronic metabolic acidosis as well as anemia of CKD and CKD/MBD with secondary hyperparathyroidism. AVF is mature and ready for use. Recommendations ESRD with functional renal allograft: -- Reviewed with patient potential indications to start hemodialysis. No current emergent need for hemodialysis but symptom burden is increasing and transplant continues to be delayed. If Suraj starts hemodialysis I would arrange at [facility] [place] [facility]. -- Hold CellCept and decrease tacrolimus dose to 1 mg BID -- I will contact Suraj's milieu coordinator at [facility] -- Renal diet -- Check hepatitis B ab -- Increase NaHCO3 to 1300 BID -- Repeat metabolic profile tomorrow AM UTI/recurrent cystitis: -- Currently on Zosyn, low threshold for ID consult -- Obtain records of recent evaluation from [facility] -- Update transplant team of status -- Cultures pending Anemia: -- Check iron profile with AM labs -- Epogen [id number] units now Hypertension: -- Continue atenolol, nifedipine, losartan and furosemide as Rx CKD/MBD: -- Continue calcitriol [facility]
[2016-10-01] MEDS: NIFEdipine 30 MG CR TAB PO SCH ×2 (13:30→20:37)
--- NOTE | 2016-10-01 14:09 | Pharmacy Progress Note ---
Pharmacy Antibiotic Consult Date of Service: Oct 01, 2016. Pharmacy Dosing Scope Pharmacy is consulted to initiate vancomycin and Zosyn IV dosing therapy, order appropriate labs and adjust drug dose/frequency. Subjective The patient is a 41 year old male admitted on Oct 01, 2016 at 03:11. History of renal transplant 20 years ago,now dysfunctional, hx of HD and PD but not currently on dialysis, scheduled for live-donor renal transplant on 10/24. Objective Height (Feet): 5 Height (Inches): 11.00 Weight (Kilograms): 81.100 Lab Results (24hrs): Test 09/30/16 23:20 10/01/16 07:32 White Blood Count 9.79 K/uL (4.8-10.8) 8.08 K/uL (4.8-10.8) Red Blood Count 3.33 M/uL (4.7-6.1) 3.07 M/uL (4.7-6.1) Hemoglobin 9.5 g/dL (14.0-18.0) 8.8 g/dL (14.0-18.0) Hematocrit 28.4 % (42-52) 26.3 % (42-52) Mean Corpuscular Volume 85.3 fL (80-100) 85.7 fL (80-100) Mean Corpuscular Hemoglobin 28.5 pg (25-34) 28.7 pg (25-34) Mean Corpuscular Hemoglobin Concent 33.5 g/dl (32-36) 33.5 g/dl (32-36) Platelet Count 224 K/uL (130-400) 184 K/uL (130-400) Mean Platelet Volume 10.1 fL (7.4-10.4) 9.9 fL (7.4-10.4) Neutrophils (%) (Auto) 67.7 % Lymphocytes (%) (Auto) 15.7 % Monocytes (%) (Auto) 9.3 % Eosinophils (%) (Auto) 6.7 % Basophils (%) (Auto) 0.4 % Neutrophils # (Auto) 6.62 K/uL (1.4-6.5) Lymphocytes # (Auto) 1.54 K/uL (1.2-3.4) Monocytes # (Auto) 0.91 K/uL (0.11-0.59) Eosinophils # (Auto) 0.66 K/uL (0-0.5) Basophils # (Auto) 0.04 K/uL (0-0.2) RDW Standard Deviation 46.1 fL (36.4-46.3) 45.6 fL (36.4-46.3) RDW Coefficient of Variation 14.5 % (11.5-14.5) 14.6 % (11.5-14.5) Immature Granulocyte % (Auto) 0.2 % Immature Granulocyte # (Auto) 0.02 K/uL (0.00-0.02) Prothrombin Time 10.3 SECONDS (9.0-12.0) Prothromb Time International Ratio 1.0 (0.9-1.1) Urine Color YELLOW Urine Appearance TURBID (CLEAR) Urine pH 5.5 (4.5-7.5) Urine Specific [place] 1.015 (1.000-1.030) Urine Protein 3+ (NEG) Urine Glucose (UA) NEG (NEG) Urine Ketones NEG (NEG) Urine Occult Blood 3+ (NEG) Urine Nitrite NEG (NEG) Urine Bilirubin NEG (NEG) Urine Urobilinogen NEG (NEG) Urine Leukocyte Esterase LARGE (NEG) Urine WBC (Auto) >30 /hpf (0-5) Urine RBC (Auto) >30 /hpf (0-4) Urine Hyaline Casts (Auto) 0 /lpf (0-5) Urine Epithelial Cells (Auto) >30 /lpf (0-5) Urine Bacteria (Auto) NEG (NEG) Urine Pathogenic Casts /lpf (0) Urine Yeast (Auto) (NONE PRSENT) Sodium Level 139 mmol/L (136-145) 140 mmol/L (136-145) Potassium Level 4.1 mmol/L (3.5-5.1) 4.5 mmol/L (3.5-5.1) Chloride Level 110 mmol/L (98-107) 113 mmol/L (98-107) Carbon Dioxide Level 17 mmol/L (21-32) 16 mmol/L (21-32) Anion Gap 12.0 mmol/L (3-11) 11.0 mmol/L (3-11) Blood Urea Nitrogen 73 mg/dl (7-18) 73 mg/dl (7-18) Creatinine 8.70 mg/dl (0.60-1.40) 8.40 mg/dl (0.60-1.40) Est Creatinine Clear Calc Drug Dose 11.7 ml/min 12.1 ml/min Estimated GFR () 7.8 8.1 Estimated GFR (Non- 6.7 7.0 BUN/Creatinine Ratio 8.4 (10-20) 8.7 (10-20) Random Glucose 111 mg/dl (70-99) 89 mg/dl (70-99) Calcium Level 8.3 mg/dl (8.5-10.1) 8.0 mg/dl (8.5-10.1) Magnesium Level 2.1 mg/dl (1.8-2.4) Total Bilirubin 0.3 mg/dl (0.2-1) Aspartate Amino Transf (AST/SGOT) 14 U/L (15-37) Alanine Aminotransferase (ALT/SGPT) 12 U/L (12-78) Alkaline Phosphatase 72 U/L (45-117) Total Protein 7.2 gm/dl (6.4-8.2) Albumin 2.7 gm/dl (3.4-5.0) Globulin 4.5 gm/dl (2.5-4.0) Albumin/Globulin Ratio 0.6 (0.9-2) Monoscreen NEG (NEG) C-Reactive Protein 5.37 mg/dl (0-0.29) Micro Results: 09/30 clean catch urine pending 10/01 blood x2 pending 10/01 nasal swab neg for MRSA Recent Pertinent Medications Item Value Date Time Piperacillin Sod/ 115 ml @ 28.75 mls/hr 10/01/16 1200 Tazobactam Sod Q12@0000,1200/IV 10/01/16 1131 3.375 gm/Dextrose Vancomycin HCl 532 ml @ 200 mls/hr 10/01/16 0545 1600 mg/Sodium NOW ONCE/IV 10/01/16 0620 Chloride Piperacillin Sod/ 115 ml @ 200 mls/hr 10/01/16 0545 Tazobactam Sod NOW ONCE/IV 10/01/16 0532 3.375 gm/Dextrose Ceftriaxone Sodium 1 gm 10/01/16 0123 (Rocephin Inj) NOW STAT/IV 10/01/16 0134 Assessment & Plan Loading dose: vancomycin 1600 mg IV X 1 dose then: will redose empirically based on levels. Goal trough level estimate: between 15-20 mcg/mL. Random level has been ordered for: 10/02/16 with am labs. Zosyn 3.375 Gm IV (infuse over 4 hr) q12h for CrCl <20 ml/min. Pharmacy will continue to follow and will adjust dose/frequency as necessary. Thank you
[2016-10-01 15:25] VITALS: BP 168/89; PULSE 90; TEMP 37; O2SAT 99
[2016-10-01 16:00] VITALS: O2SAT 99
--- NOTE | 2016-10-01 16:15 | Family Medicine Progress Note ---
Progress Note Date of Service Oct 01, 2016. Subjective Pt evaluation today including: conversation w/ patient, physical exam, chart review, lab review, review of inpatient medication list Pain: No pain reported PO Intake: Tolerating PO intake Voiding: no voiding problems Mr. Platt reports he feels well today. He is concerned about an infection as his urine has been cloudy and foul smelling for the past day, and he has been feeling weak. He currently denies any abdominal or flank pain, or dysuria. He is scheduled for a transplant on October 24 and wants to ensure there are no complications before the surgery takes place. Constitutional: No fever, No chills, No sweats Respiratory: No cough, No sputum, No wheezing, No shortness of breath Cardiovascular: No chest pain, No orthopnea, No PND, No edema Abdomen: No pain, No nausea, No vomiting, No diarrhea Male : No dysuria, No urinary frequency, No incontinence All Other Systems: Reviewed and Negative Medications Current Inpatient Medications Medications (Trade) Dose Ordered Sig/Willy Route Start Time Stop Time Status Last Admin Dose Admin Heparin Sodium (Porcine) (Heparin Sq 5000 Unit/0.5ml) 5,000 unit Q8H SQ 10/01/16 06:00 10/31/16 05:59 Acetaminophen (Tylenol Tab) 650 mg Q4H PRN PO 10/01/16 03:15 10/31/16 03:14 Magnesium Hydroxide (Milk Of Magnesia Susp) 30 ml Q6H PRN PO 10/01/16 03:15 10/31/16 03:14 Polyethylene (Miralax Powder Packet) 17 gm DAILY PRN PO 10/01/16 03:15 10/31/16 03:14 Zolpidem Tartrate (Ambien Tab) 5 mg HSZ PRN PO 10/01/16 03:15 10/31/16 03:14 Ondansetron HCl (Zofran Inj) 4 mg Q6H PRN IV 10/01/16 03:15 10/31/16 03:14 Piperacillin Sod/ Tazobactam Sod 3.375 gm/Dextrose 115 ml @ 28.75 mls/ hr Q12@0000,1200 IV 10/01/16 12:00 10/11/16 11:59 10/01/16 11:31 28.75 MLS/HR Atenolol (Tenormin Tab) 100 mg QPM PO 10/01/16 21:00 10/31/16 20:59 Furosemide (Lasix Tab) 20 mg QAM PO 10/01/16 09:00 10/31/16 08:59 Losartan Potassium (coZAAR TAB) 100 mg QPM PO 10/01/16 21:00 10/31/16 20:59 Mycophenolate Mofetil (Cellcept Cap) 500 mg BID PO 10/01/16 09:00 10/31/16 08:59 Future Hold 10/01/16 08:05 500 MG Nifedipine (Procardia Xl Tab) 60 mg BID PO 10/01/16 09:00 10/31/16 08:59 10/01/16 13:30 60 MG Tramadol HCl (Ultram Tab) 50 mg Q6 PRN PO 10/01/16 03:15 10/31/16 03:14 Calcitriol (Rocaltrol Cap) 0.25 mcg MoWeFr@0900 PO 10/02/16 09:00 11/01/16 08:59 Vancomycin HCl (Consult) 1 ea UD PRN N/A 10/01/16 03:45 10/31/16 03:44 Piperacillin Sod/ Tazobactam Sod (Consult) 1 ea UD PRN N/A 10/01/16 04:00 10/31/16 03:59 Tacrolimus (Prograf Cap) 1 mg BID PO 10/01/16 21:00 10/31/16 08:59 Sodium Bicarbonate (Sodium Bicarbonate Tab) 1,300 mg BID PO 10/01/16 21:00 10/31/16 08:59 Objective Vital Signs Date Time Temp Pulse Resp B/P (MAP) Pulse Ox O2 Delivery O2 Flow Rate FiO2 10/01/16 15:25 37.0 90 18 168/89 (115) 99 Room Air 10/01/16 08:00 99 Room Air 10/01/16 07:14 36.9 91 18 158/79 (105) 99 Room Air 10/01/16 04:56 99 Room Air 10/01/16 04:54 37.1 98 98 165/87 10/01/16 03:32 36.6 105 18 162/83 97 Room Air 10/01/16 01:25 37.7 108 18 159/87 97 Room Air 10/01/16 01:06 37.7 09/30/16 23:30 109 18 159/90 98 Room Air 09/30/16 22:43 37.0 124 18 153/83 95 Room Air Physical Exam General Appearance: WD/WN, no apparent distress Respiratory/Chest: chest non-tender, lungs clear, normal breath sounds, no respiratory distress, no accessory muscle use Cardiovascular: regular rate, rhythm, no edema, no gallop, no JVD, no murmur, + pertinent finding (Active fistula in right antecubital fossa. ) Abdomen: normal bowel sounds, non tender, soft, no organomegaly, no pulsatile mass, + pertinent finding (kidney transplanted in RLQ. No tenderness.) Laboratory Results 10/01/16 07:32 10/01/16 07:32 Test 09/30/16 23:20 10/01/16 07:32 Immature Granulocyte % (Auto) 0.2 % White Blood Count 9.79 K/uL (4.8-10.8) Red Blood Count 3.33 M/uL (4.7-6.1) 3.07 M/uL (4.7-6.1) Hemoglobin 9.5 g/dL (14.0-18.0) Hematocrit 28.4 % (42-52) Mean Corpuscular Volume 85.3 fL (80-100) 85.7 fL (80-100) Mean Corpuscular Hemoglobin 28.5 pg (25-34) 28.7 pg (25-34) Mean Corpuscular Hemoglobin Concent 33.5 g/dl (32-36) 33.5 g/dl (32-36) Platelet Count 224 K/uL (130-400) Mean Platelet Volume 10.1 fL (7.4-10.4) 9.9 fL (7.4-10.4) Neutrophils (%) (Auto) 67.7 % Lymphocytes (%) (Auto) 15.7 % Monocytes (%) (Auto) 9.3 % Eosinophils (%) (Auto) 6.7 % Basophils (%) (Auto) 0.4 % Neutrophils # (Auto) 6.62 K/uL (1.4-6.5) Lymphocytes # (Auto) 1.54 K/uL (1.2-3.4) Monocytes # (Auto) 0.91 K/uL (0.11-0.59) Eosinophils # (Auto) 0.66 K/uL (0-0.5) Basophils # (Auto) 0.04 K/uL (0-0.2) Immature Granulocyte # (Auto) 0.02 K/uL (0.00-0.02) Prothrombin Time 10.3 SECONDS (9.0-12.0) Prothromb Time International Ratio 1.0 (0.9-1.1) Urine Color YELLOW Urine Appearance TURBID (CLEAR) Urine pH 5.5 (4.5-7.5) Urine Specific [place] 1.015 (1.000-1.030) Urine Protein 3+ (NEG) Urine Glucose (UA) NEG (NEG) Urine Ketones NEG (NEG) Urine Occult Blood 3+ (NEG) Urine Nitrite NEG (NEG) Urine Bilirubin NEG (NEG) Urine Urobilinogen NEG (NEG) Urine Leukocyte Esterase LARGE (NEG) Urine WBC (Auto) >30 /hpf (0-5) Urine RBC (Auto) >30 /hpf (0-4) Urine Hyaline Casts (Auto) 0 /lpf (0-5) Urine Epithelial Cells (Auto) >30 /lpf (0-5) Urine Bacteria (Auto) NEG (NEG) Urine Pathogenic Casts /lpf (0) Urine Yeast (Auto) (NONE PRSENT) Magnesium Level 2.1 mg/dl (1.8-2.4) Total Bilirubin 0.3 mg/dl (0.2-1) Aspartate Amino Transf (AST/SGOT) 14 U/L (15-37) Alanine Aminotransferase (ALT/SGPT) 12 U/L (12-78) Alkaline Phosphatase 72 U/L (45-117) Total Protein 7.2 gm/dl (6.4-8.2) Albumin 2.7 gm/dl (3.4-5.0) Globulin 4.5 gm/dl (2.5-4.0) Albumin/Globulin Ratio 0.6 (0.9-2) Monoscreen NEG (NEG) RDW Standard Deviation 45.6 fL (36.4-46.3) RDW Coefficient of Variation 14.6 % (11.5-14.5) Anion Gap 11.0 mmol/L (3-11) Est Creatinine Clear Calc Drug Dose 12.1 ml/min Estimated GFR () 8.1 Estimated GFR (Non- 7.0 BUN/Creatinine Ratio 8.7 (10-20) Calcium Level 8.0 mg/dl (8.5-10.1) C-Reactive Protein 5.37 mg/dl (0-0.29) Date/Time Source Procedure Growth Status 10/01/16 05:30 Nasal MRSA DNA Surveillance Screen - Final Specimen Negative for MRSA by DNA Probe Complete Assessment and Plan 41 year old male with ESRD, with 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 Elevated Creatinine - Consulted nephrology - Dr. Kaur - thank you for recommendations. - Creatinine is 8.4 - baseline from February 2016 is from 3-4. - Mature AVF in place in case dialysis is needed UTI - UA suspicious for UTI - awaiting culture results. - He has previously had 4 UTIs this year - previous cultures grew pansensitive Staph Aureus - Had a urology workup at [facility] with bladder scan & biopsy - will obtain these results - Continue Zosyn - Follow up blood cultures. - MRSA swab negative s/p Renal Transplant - held Lasix given elevated creatinine - bicarb given - As per Dr. 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 Discussed with [Elvie] and agree with findings and plan as documented in the note. Any exceptions or clarifications are listed here: [None] Documented By: Wyatt Linton feeling OK. waiting on urine culture. seen in f/u from early AM admission vitals noted nad breathing unlabored no pallor or icterus acute renal failure on chronic renal disease s/p transplant and apparent failure -- abnormal urine either UTI or just related to ARF on CKD. with main sx being abnormal urine, and no fever/leukocytosis/etc suspect more relates to renal failure, but given immune compromise and overall situation, empiric abx pending further workup. Resident Tracking Resident Involvement: Resident Care Provided Care Provided: Adult Hospital Medicine
[2016-10-01] MEDS: LOSARTAN POTASSIUM 50 MG TAB PO SCH (20:36)
[2016-10-01] MEDS: TACROLIMUS 1 MG CAP PO SCH (20:37)
[2016-10-01] MEDS: SODIUM BICARBONATE 650 MG TAB PO SCH (20:38)
[2016-10-02] VITALS (16 sets, daily range): BP systolic 117–153; BP diastolic 62–83; PULSE 74–82; TEMP 36.7–37.3; O2SAT 98–99
[2016-10-02] MEDS: HEPARIN SOD 5000 UNIT/0.5 ML CARP SQ SCH ×3 (06:26→21:40)
[2016-10-02 07:48] LABS: HEMATOCRIT 26.8 % (42-52); MEAN CELL VOLUME 85.4 fL (80-100); MEAN CORPUSCULAR HEMOGLOBIN 27.7 pg (25-34); MEAN CORPUSCULAR HGB CONC 32.5 g/dl (32-36); PLATELET COUNT 219 K/uL (130-400); RED BLOOD COUNT 3.14 M/uL (4.7-6.1)
[2016-10-02] MEDS: TACROLIMUS 1 MG CAP PO SCH ×2 (07:50→21:37)
[2016-10-02] MEDS: FUROSEMIDE 20 MG TAB PO SCH (07:50)
[2016-10-02] MEDS: NIFEdipine 30 MG CR TAB PO SCH ×2 (07:50→21:38)
[2016-10-02] MEDS: SODIUM BICARBONATE 650 MG TAB PO SCH (07:51)
[2016-10-02 08:34] LABS: CREATININE 8.3 mg/dl (0.60-1.40); FERRITIN 163.4 ng/ml (8.0-388.0); POTASSIUM 4.5 mmol/L (3.5-5.1)
[2016-10-02] MEDS ORDERED: CALCITRIOL 0.25 MCG CAP PO SCH (09:00)
[2016-10-02 09:28] LABS: HEPATITIS B AB POS
[2016-10-02] MEDS ORDERED: EPOETIN ALFA 10,000 UNITS/ML VIAL IV. ONE (09:45)
--- NOTE | 2016-10-02 09:57 | Pharmacy Progress Note ---
Pharmacy Abx Dose Progress Nt Date of Service Oct 02, 2016. Pharmacy Dosing Scope The patient is currently receiving the following antimicrobial agents per Pharmacy consult: Vancomycin and Zosyn Objective Height (Feet): 5 Height (Inches): 11.00 Weight (Kilograms): 81.100 Vital Signs (Past 12Hrs) Vital Signs Past 12 Hours Date Time Temp Pulse Resp B/P (MAP) Pulse Ox O2 Delivery O2 Flow Rate FiO2 10/02/16 07:20 36.8 74 18 117/62 (80) 99 Room Air 10/02/16 00:12 37.3 82 16 153/80 (104) 99 Room Air 10/01/16 23:15 Room Air Lab Results (24Hrs) Laboratory Tests (24 Hours) Test 10/02/16 07:21 White Blood Count 7.40 K/uL (4.8-10.8) Micro Results Date/Time Source Procedure Growth Status 10/01/16 01:12 Blood Blood Culture - Preliminary NO GROWTH TO DATE. Resulted 10/01/16 01:06 Blood Blood Culture - Preliminary NO GROWTH TO DATE. Resulted 10/01/16 05:30 Nasal MRSA DNA Surveillance Screen - Final Specimen Negative for MRSA by DNA Probe Complete 09/30/16 23:20 Urine , Clean Catch Urine Culture Pending Received Risk Factors for Resistance * Immunocompromised (chronic steroid therapy, chemotherapy, immunomodulators) Assessment & Plan Assessment 41 year old male receiving vancomycin and Zosyn for treatment of sepsis with possible urinary source. Patient has a history of UTIs (MSSA); however, is at risk for MDROs. Day # 2 of antimicrobial therapy. Urine culture pending. HD had been on hold for upcoming renal transplant but will be receiving dialysis today Plan Vancomycin IV * Random level of 18.2 mcg/mL is therapeutic * Give vancomycin 500 mg IV x 1 today after dialysis * Further dosing dependent on random/pre-HD levels - at this point, unsure of dialysis schedule * Will order another random tomorrow w/ AM labs * Goal for sepsis secondary to urinary source: 15-20 (until cultures resulted) Piperacillin/tazobactam * Continue 3.375 g IV extended infusion every 12 hours for CrCl 20 mL/min or less OR on hemodialysis Pharmacy will continue to follow and will adjust dose/frequency as necessary. Thank you.
[2016-10-02] MEDS ORDERED: HEPARIN SOD (PORCINE) 1000 UNIT/ML 10 ML VIAL IV SCH (10:00)
[2016-10-02] MEDS ORDERED: EPOETIN ALFA INJ 8,000 UNITS in SYRINGE 0 ML IV. SCH (10:30)
--- NOTE | 2016-10-02 10:44 | Nephrology Progress Note ---
Nephrology Progress Note Date of Service Oct 02, 2016. Chief Complaint Failed DDRT. Admitted w/ probable UTI Subjective Mr. Platt was seen and examined in his hospital room this morning. He currently denies fever, pain overlying his renal allograft or dysuria. He acknowledges that he is nearing ESRD and is being evaluated for a LURT at [facility]. He is agreeable to starting IHD as a bridge therapy if necessary. His creatinine has risen from 5.6 (08/19) to 8.3 w/ EGFR 7 cc/min. Review of Systems Constitutional: No fever Cardiovascular: No chest pain Respiratory: No dyspnea at rest Abdomen: No pain, No nausea Extremities: No leg edema A complete review of systems was performed. Pertinent positives are noted above. All other systems are negative. Vital Signs Last 8 Hrs Date Time Temp Pulse Resp B/P (MAP) Pulse Ox O2 Delivery O2 Flow Rate FiO2 10/02/16 10:09 Room Air 10/02/16 07:20 36.8 74 18 117/62 (80) 99 Room Air Last Recorded Weight Weight (Kilograms): 81.100 Physical Exam General Appearance: no apparent distress Head: normocephalic, atraumatic Eyes: PERRL, EOMI Neck: no adenopathy Respiratory/Chest: lungs clear Cardiovascular: regular rate, rhythm Abdomen/GI: normal bowel sounds, non tender, soft Extremities/Musculoskelatal: no calf tenderness, no pedal edema, + pertinent finding (R upper arm AVF + bruit) Neurologic/Psych: alert, oriented x 3 Family History Patient reports no known family medical history. Social History Smokeless Tobacco Use: No Alcohol Use: none Drug Use: none Marital Status: single Occupation: employed Laboratory Results Past 24 Hours 10/02/16 07:21 10/02/16 07:21 Test 10/02/16 07:21 Red Blood Count 3.14 M/uL (4.7-6.1) Mean Corpuscular Volume 85.4 fL (80-100) Mean Corpuscular Hemoglobin 27.7 pg (25-34) Mean Corpuscular Hemoglobin Concent 32.5 g/dl (32-36) RDW Standard Deviation 45.6 fL (36.4-46.3) RDW Coefficient of Variation 14.6 % (11.5-14.5) Mean Platelet Volume 10.0 fL (7.4-10.4) Anion Gap 12.0 mmol/L (3-11) Est Creatinine Clear Calc Drug Dose 12.2 ml/min Estimated GFR () 8.2 Estimated GFR (Non- 7.1 BUN/Creatinine Ratio 9.0 (10-20) Calcium Level 8.0 mg/dl (8.5-10.1) Iron Level 43 mcg/dl (35-175) Total Iron Binding Capacity 176 mcg/dl (250-450) Transferrin 130 mg/dl (200-360) Transferrin % Saturation 24 % (20-50) Ferritin 163.4 ng/ml (8.0-388.0) Random Vancomycin Level 18.2 mcg/ml Hepatitis B Surface Antigen NEG (NEG) Hepatitis B Surface Antibody POS Hepatitis C Antibody NEG (NEG) Allergies Coded Allergies: Sulfamethoxazole w/Trimethoprim (Verified Allergy, Mild, Rash, 02/09/16) Medications Current Inpatient Medications Medications (Trade) Dose Ordered Sig/Willy Route Start Time Stop Time Status Last Admin Dose Admin Heparin Sodium (Porcine) (Heparin Sq 5000 Unit/0.5ml) 5,000 unit Q8H SQ 10/01/16 06:00 10/31/16 05:59 10/02/16 06:26 5,000 UNIT Acetaminophen (Tylenol Tab) 650 mg Q4H PRN PO 10/01/16 03:15 10/31/16 03:14 Magnesium Hydroxide (Milk Of Magnesia Susp) 30 ml Q6H PRN PO 10/01/16 03:15 10/31/16 03:14 Polyethylene (Miralax Powder Packet) 17 gm DAILY PRN PO 10/01/16 03:15 10/31/16 03:14 Zolpidem Tartrate (Ambien Tab) 5 mg HSZ PRN PO 10/01/16 03:15 10/31/16 03:14 Ondansetron HCl (Zofran Inj) 4 mg Q6H PRN IV 10/01/16 03:15 10/31/16 03:14 Piperacillin Sod/ Tazobactam Sod 3.375 gm/Dextrose 115 ml @ 28.75 mls/ hr Q12@0000,1200 IV 10/01/16 12:00 10/11/16 11:59 10/01/16 23:20 28.75 MLS/HR Atenolol (Tenormin Tab) 100 mg QPM PO 10/01/16 21:00 10/31/16 20:59 10/01/16 20:37 100 MG Furosemide (Lasix Tab) 20 mg QAM PO 10/01/16 09:00 10/31/16 08:59 10/02/16 07:50 20 MG Losartan Potassium (coZAAR TAB) 100 mg QPM PO 10/01/16 21:00 10/31/16 20:59 10/01/16 20:36 100 MG Mycophenolate Mofetil (Cellcept Cap) 500 mg BID PO 10/01/16 09:00 10/31/16 08:59 Future Hold 10/01/16 08:05 500 MG Nifedipine (Procardia Xl Tab) 60 mg BID PO 10/01/16 09:00 10/31/16 08:59 10/02/16 07:50 60 MG Tramadol HCl (Ultram Tab) 50 mg Q6 PRN PO 10/01/16 03:15 10/31/16 03:14 Calcitriol (Rocaltrol Cap) 0.25 mcg MoWeFr@0900 PO 10/02/16 09:00 11/01/16 08:59 10/02/16 07:50 0.25 MCG Piperacillin Sod/ Tazobactam Sod (Consult) 1 ea UD PRN N/A 10/01/16 04:00 10/31/16 03:59 Tacrolimus (Prograf Cap) 1 mg BID PO 10/01/16 21:00 10/31/16 08:59 10/02/16 07:50 1 MG Sodium Bicarbonate (Sodium Bicarbonate Tab) 1,300 mg BID PO 10/01/16 21:00 10/31/16 08:59 10/02/16 07:51 1,300 MG Heparin Sodium (Porcine) (Heparin Iv Bolus) 2,000 unit TODAY@1000 IV 10/02/16 10:00 10/02/16 23:59 Epoetin Barrett 8000 units/Syringe 0.4 ml @ 1 mls/min TODAY@1030 IV. 10/02/16 10:30 10/02/16 23:59 Impression (1) ESRD (end stage renal disease) (2) Renal transplant disorder (3) Decreased GFR (4) Metabolic acidosis (5) UTI (urinary tract infection) (6) Anemia Mr. 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 He was hoping to have a preemptive LURT at [facility] but this has unfortunately been delayed. It is currently scheduled for October 24. He has been started on Zosyn for presumed UTI. Cultures are pending. Clinically, symptoms are improving. Immunosuppression has been adjusted. Recommendations ESRD: -- Creatinine has risen to 8.3 w/ EGFR 7 cc/min. Patient will benefit from initiation of IHD to correct electrolytes and acid/base balance -- Will provide 1st run HD today. Indications/benefits/risks and alternatives discussed in detail w/ patient today. He is agreeable to starting HD. Orders entered into EMR and HD RN notified -- Stop oral NaHCO3 -- Obtain 24 hour urine creatinine clearance -- Will consult Podiatrist Orthopedic to set up outpatient [facility] [place] w/ Dr. 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 No acute indication for IV iron at this time -- Will provide CLARISA w/ HD today Hypertension: -- Continue atenolol, nifedipine, losartan and furosemide as Rx CKD/MBD: -- Continue calcitriol MWF
[2016-10-02] MEDS: PIPERACILL/TAZOBAC IV 3.375 GM in DEXTROSE 5% 100ML 100 ML IV SCH ×2 (13:14→23:54)
--- NOTE | 2016-10-02 14:05 | Medical Student: [facility] ---
Med Student Progress Note Date of Service Oct 02, 2016. Subjective Pt evaluation today including: conversation w/ patient, physical exam, chart review, lab review Voiding: no voiding problems, no incontinence The patient reports no acute events overnight. Still not experiencing any dysuria, hematuria, or other urinary issues. States urine appears to be slightly less cloudy. He is aware that he is starting dialysis today. The patient is not happy to hear this, however he realizes it's necessary to keep him healthy until he is able to hopefully undergo transplant on October 24. He is experiencing some fatigue which he states has been worsening over the past several months. He reports no other issues at this time. Review of Systems Constitutional: + fatigue, No fever, No chills, No sweats, No weight loss, No weakness Respiratory: No cough, No shortness of breath, No dyspnea on exertion Cardiac: No chest pain, No orthopnea, No PND, No edema, No palpitations Abdomen: No pain, No nausea, No vomiting, No diarrhea, No constipation, No GI bleeding Musculoskeletal: No swelling, No calf pain Male : No dysuria, No urinary frequency, No incontinence, No hematuria Neurologic: No weakness, No numbness/tingling Endo: + fatigue, No excessive thirst, No excessive urination All Other Systems: Reviewed and Negative Objective Vital Signs Date Time Temp Pulse Resp B/P (MAP) Pulse Ox O2 Delivery O2 Flow Rate FiO2 10/02/16 12:30 79 134/71 10/02/16 12:15 80 148/72 10/02/16 12:00 77 134/76 10/02/16 11:45 77 125/69 10/02/16 11:30 76 124/67 10/02/16 11:15 76 139/75 10/02/16 11:00 75 138/72 10/02/16 10:45 76 139/72 10/02/16 10:39 37.1 74 133/70 (91) 10/02/16 10:36 75 133/71 10/02/16 10:09 Room Air 10/02/16 07:20 36.8 74 18 117/62 (80) 99 Room Air 10/02/16 00:12 37.3 82 16 153/80 (104) 99 Room Air 10/01/16 23:15 Room Air 10/01/16 16:00 99 Room Air 10/01/16 15:25 37.0 90 18 168/89 (115) 99 Room Air Physical Exam General Appearance: WD/WN, no apparent distress Eyes: bilateral eyes normal inspection, bilateral eyes PERRL, bilateral eyes EOMI ENT: normal ENT inspection, hearing grossly normal, pharynx normal Neck: supple, thyroid normal, trachea midline Respiratory/Chest: chest non-tender, lungs clear, normal breath sounds, no respiratory distress, no accessory muscle use Cardiovascular: regular rate, rhythm, no edema, no gallop, no JVD, + systolic murmur (Soft 2/6 systolic wooshing murmur) Abdomen: normal bowel sounds, non tender, soft, no organomegaly Neurologic/Psychiatric: alert, normal mood/affect, oriented x 3 Skin: normal color, warm/dry, no rash Laboratory Results Last 24 Hours Test 10/02/16 07:21 White Blood Count 7.40 K/uL Red Blood Count 3.14 M/uL Hemoglobin 8.7 g/dL Hematocrit 26.8 % Mean Corpuscular Volume 85.4 fL Mean Corpuscular Hemoglobin 27.7 pg Mean Corpuscular Hemoglobin Concent 32.5 g/dl RDW Standard Deviation 45.6 fL RDW Coefficient of Variation 14.6 % Platelet Count 219 K/uL Mean Platelet Volume 10.0 fL Sodium Level 141 mmol/L Potassium Level 4.5 mmol/L Chloride Level 113 mmol/L Carbon Dioxide Level 16 mmol/L Anion Gap 12.0 mmol/L Blood Urea Nitrogen 75 mg/dl Creatinine 8.30 mg/dl Est Creatinine Clear Calc Drug Dose 12.2 ml/min Estimated GFR () 8.2 Estimated GFR (Non- 7.1 BUN/Creatinine Ratio 9.0 Random Glucose 118 mg/dl Calcium Level 8.0 mg/dl Iron Level 43 mcg/dl Total Iron Binding Capacity 176 mcg/dl Transferrin 130 mg/dl Transferrin % Saturation 24 % Ferritin 163.4 ng/ml Random Vancomycin Level 18.2 mcg/ml Hepatitis B Surface Antigen NEG Hepatitis B Surface Antibody POS Hepatitis C Antibody NEG Assessment and Plan Assessment and Plan: Assessment The patient is a 41 year-old man w/ 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 He has advanced renal allograft dysfunction and chronic metabolic acidosis. He is currently in acute on chronic renal failure with a creatinine of 8.3. He is scheduled for renal transplant on October 24 at [facility]. Plan ESRD -Patient's creatinine is at 8.3. He is to have his first hemodialysis treatment today. AV fistula is intact and matured in right AC. -D/C oral bicarbonate now that patient is receiving dialysis -Patient is followed by Dr. Kaur who has previously discussed with patient about going to [facility] in [place] if he were to need dialysis before his transplant on the . He will need setup with them for treatment upon discharge. Systolic murmur -Likely secondary to anemia. However, this is a new murmur and will obtain echo to evaluate. Immunosuppressive therapy -Cellcept has been D/C and Tacrolimus reduced to 1mg BID. Appreciate nephrology recommendations. Recurrent UTI -Currently on Zosyn for presumed UTI. Still waiting for culture results. HTN -Continue amlodipine, atenolol, losartan, and furosemide as prescribed outpatient. Anemia -Anemia downtrended slightly overnight. Will receive CLARISA during dialysis today. Nephrology did not want IV iron yet. Will continue to monitor. Continued [facility] stay due to: other (Renal failure) Discharge planning: home
--- NOTE | 2016-10-02 14:50 | Family Medicine Progress Note ---
Progress Note Date of Service Oct 02, 2016. Subjective Pt evaluation today including: conversation w/ patient The patient was seen and examined at bedside. No acute overnight events. Pt states that he is feeling better than during his previous day. Pt continues to deny symptoms of dysuria and urinary frequency. Patient is resting comfortably in bed. Denies having any pain. Eating and urinating well. Plan of care was described to the patient and all questions were answered. Constitutional: No fever, No chills, No sweats Eyes: No redness Respiratory: No cough, No sputum, No wheezing, No shortness of breath Cardiovascular: No chest pain, No edema Abdomen: No pain, No nausea, No vomiting, No diarrhea Male : No dysuria Objective Physical Exam General Appearance: WD/WN, no apparent distress Eyes: normal inspection Neck: supple Respiratory/Chest: chest non-tender, lungs clear, normal breath sounds, no respiratory distress, no accessory muscle use Cardiovascular: regular rate, rhythm, no edema, no gallop, no JVD, + pertinent finding (heart murmur) Abdomen: normal bowel sounds, non tender, soft, no organomegaly, + pertinent finding (s/p renal transplant in RLQ) Extremities: normal range of motion, non-tender, normal inspection, no pedal edema, no calf tenderness, + pertinent finding (mature AVF in right antecubital fossa) Neurologic/Psychiatric: rose grader II-XII nml as tested, no motor/sensory deficits, alert, normal mood/affect, oriented x 3 Skin: no rash Assessment and Plan 41M with a PMHx of 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 [facility] Immunosuppression was adjusted. Hemodialysis at [facility] on 10/02. Urine and Blood cultures negative to date. Uncertain whether symptoms are from infection or ESRD, likely components of both. End State Renal Disease - Pt is feeling better than yesterday. - Creatinine is 8.3<--8.4<--8.7, baseline is 3-4. - Pt will receive dialysis on 10/02. - Appreciate Dr. Delgado's recommendations. * Obtain 24 hour urine creatinine clearance * Will consult [employer] to set up outpatient IHD at [facility] in [place], [place] w/ Dr. Robinson Kaur, DO * Dialysis today - risks and benefits were reviewed. * Hold Bicarb 650mg PO BID Sepsis 2/2 UTI - Improving clinically on Zosyn. - Urine had LE and WBC, previous cultures grew Staph Aureus, - Urine and blood culture was negative to date. - c/w Zosyn, stop Vancomycin. - MRSA swab negative Immunosuppresion for allograft kidney - Mycophenolate Mofetil 500mg PO BID Anemia - Iron saturation 24% w/ ferritin 163. 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 (M,W,F) HTN - continue Atenolol 100mg PO QPM - continue Lasix 20mg PO QAM - continue Losartan 100mg PO QPM - continue Nifedipine 60mg PO BID Heart Murmur - Likely incidental finding, will order AJ. Diet - Renal Diet DVT Proph: Hep SQ BID, SCDs Dispo: Med Surg Full Code Resident Involvement: Resident Care Provided Care Provided: Adult Hospital Medicine Reviewed: Pt Seen/Exam by Me History denies any concerns overnight. Constitutional: denies: fever Respiratory: negative: short of breath Cardiovascular: denies chest pain Gastrointestinal/Abdominal: negative: abdominal pain General Appearance: no apparent distress Respiratory: lungs clear, no respiratory distress Cardiovascular: regular rate, rhythm Gastrointestinal: soft Neurologic/Psychiatric: alert, oriented x 3 Skin Characteristics: warm/dry Assessment/Plan Resident Physician Supervision Note: I was present with Dr. Soliz in bedside. I verified the laboy history and physical, reviewed labs and image studies, discussed the case with the resident and agree with the findings and care plan.
[2016-10-02] MEDS ORDERED: VANCOMYCIN INJ 500 MG in SODIUM CHLORIDE 0.9% 250ML 250 ML IV ONE (16:00)
--- NOTE | 2016-10-02 17:25 | ECHOCARDIOGRAM REPORT ---
*NOTICE TO RECEIVING [employer] This information is strictly Confidential and protected under [place] law. [place] law prohibits you from making any further disclosure of this information unless further disclosure is expressly permitted by the written consent of the person to whom it pertains or is authorized by law. A general authorization for the release of medical or other information is not sufficient for this purpose. Hospital accepts no responsibility if the information is made available to any other person, INCLUDING THE PATIENT. Interpretation Summary * Name: VARUN BROWN Study Date: 10/02/2016 02:55 PM BP: 117/62 mmHg * Patient Location: .[id number]\W261\S\1 HR: 74 * : 1975 (M/d/yyyy) Gender: Male Height: 71 in * Age: 41 yrs Ethnicity: CA Weight: 178 lb * Ordering Physician: Declan Soliz * Referring Physician: Self, Referred * Performed By: Elina Ennis RDCS * * Reason For Study: Murmur * BSA: 2.0 m2 * Normal biventricular systolic function. * Mild concentric left ventricle hypertrophy. * Mild left atrial dilatation. * Trace mitral and tricuspid regurgitation. * No significant valvular abnormalities. Procedure Details * A complete two-dimensional transthoracic echocardiogram was performed (2D, M-mode, Doppler and color flow Doppler). Left Ventricle * The left ventricle is normal in size. * There is mild concentric left ventricular hypertrophy. * Ejection Fraction = 65-70%. * Left ventricular systolic function is normal. * The left ventricular wall motion is normal. Right Ventricle * The right ventricle is normal in size and function. Atria * The left atrium is mildly dilated. * Right atrial size is normal. * No ASD detected; PFO is not assessed. Mitral Valve * The mitral valve is normal. * There is no mitral valve stenosis. * There is trace mitral regurgitation. Tricuspid Valve * The tricuspid valve is normal. * There is no tricuspid stenosis. * There is trace tricuspid regurgitation. * Right ventricular systolic pressure is normal. Aortic Valve * The aortic valve is trileaflet. * The aortic valve opens well. * Aortic stenosis is absent. * No aortic regurgitation is present. Great Vessels * The aortic root is normal size. * Normal inferior vena cava diameter and respiratory variation suggests normal central venous pressure. MMode 2D Measurements and Calculations IVSd 1.2 cm LVIDd 5.3 cm LVIDs 3.1 cm LVPWd 1.2 cm IVS/LVPW 1.0 FS 41.0 % EDV(Teich) 135.8 ml ESV(Teich) 38.9 ml EF(Teich) 71.3 % EDV(cubed) 149.6 ml ESV(cubed) 30.8 ml EF(cubed) 79.4 % LV mass(C)d 268.6 grams LV mass(C)dI 133.8 grams/m\S\2 CO(Teich) 8.0 l/min CI(Teich) 4.0 l/min/m\S\2 SV(Teich) 96.9 ml SI(Teich) 48.3 ml/m\S\2 CO(cubed) 9.9 l/min CI(cubed) 4.9 l/min/m\S\2 SV(cubed) 118.8 ml SI(cubed) 59.2 ml/m\S\2 Ao root diam 3.2 cm Ao root area 8.2 cm\S\2 ACS 2.3 cm LA dimension 4.3 cm asc Aorta Diam 3.5 cm LA/Ao 1.3 LVOT diam 2.0 cm LVOT area 3.2 cm\S\2 LVAd ap4 40.6 cm\S\2 LVLd ap4 9.7 cm EDV(MOD-sp4) 139.0 ml LVAs ap4 21.0 cm\S\2 LVLs ap4 7.6 cm ESV(MOD-sp4) 49.5 ml EF(MOD-sp4) 64.4 % LVAd ap2 42.0 cm\S\2 LVLd ap2 9.8 cm EDV(MOD-sp2) 153.0 ml LVAs ap2 21.7 cm\S\2 LVLs ap2 8.2 cm ESV(MOD-sp2) 49.8 ml EF(MOD-sp2) 67.5 % CO(MOD-sp4) 7.4 l/min CI(MOD-sp4) 3.7 l/min/m\S\2 SV(MOD-sp4) 89.5 ml SI(MOD-sp4) 44.6 ml/m\S\2 CO(MOD-sp2) 8.6 l/min CI(MOD-sp2) 4.3 l/min/m\S\2 SV(MOD-sp2) 103.2 ml SI(MOD-sp2) 51.4 ml/m\S\2 Doppler Measurements and Calculations MV E max arian 118.8 cm/sec MV A max arian 82.5 cm/sec MV E/A 1.4 MV dec time 0.29 sec Ao V2 max 232.1 cm/sec Ao max PG 21.6 mmHg Ao max PG (full) 7.9 mmHg GAURAV(V,A) 2.6 cm\S\2 GAURAV(V,D) 2.6 cm\S\2 LV V1 max PG 13.6 mmHg LV V1 max 184.6 cm/sec PA V2 max 134.4 cm/sec PA max PG 7.2 mmHg PA acc slope 604.8 cm/sec\S\2 PA acc time 0.14 sec TR max arian 228.0 cm/sec PA pr(Accel) 14.0 mmHg
[2016-10-02] MEDS: LOSARTAN POTASSIUM 50 MG TAB PO SCH (21:39)
[2016-10-03] VITALS (20 sets, daily range): BP systolic 126–142; BP diastolic 66–81; PULSE 70–85; TEMP 36.9–37.4; O2SAT 98–99
[2016-10-03] MEDS: HEPARIN SOD 5000 UNIT/0.5 ML CARP SQ SCH ×4 (05:38→22:03)
[2016-10-03 07:22] LABS: HEMATOCRIT 26.3 % (42-52); MEAN CELL VOLUME 85.7 fL (80-100); MEAN CORPUSCULAR HGB CONC 32.7 g/dl (32-36); MEAN PLATELET VOLUME 10.3 fL (7.4-10.4); PLATELET COUNT 202 K/uL (130-400); RED BLOOD COUNT 3.07 M/uL (4.7-6.1); WHITE BLOOD COUNT 7.27 K/uL (4.8-10.8)
[2016-10-03 07:49] LABS: BUN/CREATININE RATIO 7.3 (10-20); CREATININE 7.8 mg/dl (0.60-1.40); POTASSIUM 4.4 mmol/L (3.5-5.1)
[2016-10-03] MEDS: NIFEdipine 30 MG CR TAB PO SCH ×2 (08:23→21:01)
[2016-10-03] MEDS: FUROSEMIDE 20 MG TAB PO SCH (08:23)
[2016-10-03] MEDS: TACROLIMUS 1 MG CAP PO SCH ×2 (08:24→21:00)
[2016-10-03] MEDS ORDERED: EPOETIN ALFA 10,000 UNITS/ML VIAL IV. ONE (09:45)
--- NOTE | 2016-10-03 10:07 | Nephrology Progress Note ---
Nephrology Progress Note Date of Service Oct 03, 2016. Chief Complaint Failed DDRT. Admitted w/ probable UTI Subjective Mr. Platt was seen & examined in his hospital room this morning. He had his first hemodialysis treatment yesterday. He dialyzed for 2 hours w/ 1 L UF. AVF functioned well. There were no complications. Mr. Platt currently denies fever, flank pain or dysuria. Review of Systems Constitutional: No fever Cardiovascular: No chest pain Respiratory: No dyspnea at rest Abdomen: No pain, No nausea, No vomiting Genitourinary - Male: No dysuria, No gross hematuria Extremities: No leg edema Integumentary: No rash A complete review of systems was performed. Pertinent positives are noted above. All other systems are negative. Vital Signs Last 8 Hrs Date Time Temp Pulse Resp B/P (MAP) Pulse Ox O2 Delivery O2 Flow Rate FiO2 10/03/16 08:48 Room Air 10/03/16 07:27 36.9 77 18 135/74 (94) 99 Room Air Last Recorded Weight Weight (Kilograms): 76.900 Physical Exam General Appearance: no apparent distress Head: normocephalic, atraumatic Eyes: PERRL, EOMI Neck: no adenopathy Respiratory/Chest: lungs clear Cardiovascular: regular rate, rhythm Abdomen/GI: normal bowel sounds, non tender, soft Extremities/Musculoskelatal: no calf tenderness, no pedal edema Neurologic/Psych: alert, oriented x 3 Family History Patient reports no known family medical history. Social History Smokeless Tobacco Use: No Alcohol Use: none Drug Use: none Marital Status: single Occupation: employed Laboratory Results Past 24 Hours 10/03/16 06:48 10/03/16 06:48 Test 10/03/16 06:48 Red Blood Count 3.07 M/uL (4.7-6.1) Mean Corpuscular Volume 85.7 fL (80-100) Mean Corpuscular Hemoglobin 28.0 pg (25-34) Mean Corpuscular Hemoglobin Concent 32.7 g/dl (32-36) RDW Standard Deviation 46.1 fL (36.4-46.3) RDW Coefficient of Variation 14.6 % (11.5-14.5) Mean Platelet Volume 10.3 fL (7.4-10.4) Anion Gap 9.0 mmol/L (3-11) Est Creatinine Clear Calc Drug Dose 13.0 ml/min Estimated GFR () 8.9 Estimated GFR (Non- 7.7 BUN/Creatinine Ratio 7.3 (10-20) Calcium Level 8.0 mg/dl (8.5-10.1) Allergies Coded Allergies: Sulfamethoxazole w/Trimethoprim (Verified Allergy, Mild, Rash, 02/09/16) Medications Current Inpatient Medications Medications (Trade) Dose Ordered Sig/Willy Route Start Time Stop Time Status Last Admin Dose Admin Heparin Sodium (Porcine) (Heparin Sq 5000 Unit/0.5ml) 5,000 unit Q8H SQ 10/01/16 06:00 10/31/16 05:59 10/03/16 05:38 5,000 UNIT Acetaminophen (Tylenol Tab) 650 mg Q4H PRN PO 10/01/16 03:15 10/31/16 03:14 Magnesium Hydroxide (Milk Of Magnesia Susp) 30 ml Q6H PRN PO 10/01/16 03:15 10/31/16 03:14 Polyethylene (Miralax Powder Packet) 17 gm DAILY PRN PO 10/01/16 03:15 10/31/16 03:14 Zolpidem Tartrate (Ambien Tab) 5 mg HSZ PRN PO 10/01/16 03:15 10/31/16 03:14 Ondansetron HCl (Zofran Inj) 4 mg Q6H PRN IV 10/01/16 03:15 10/31/16 03:14 Piperacillin Sod/ Tazobactam Sod 3.375 gm/Dextrose 115 ml @ 28.75 mls/ hr Q12@0000,1200 IV 10/01/16 12:00 10/11/16 11:59 10/02/16 23:54 28.75 MLS/HR Atenolol (Tenormin Tab) 100 mg QPM PO 10/01/16 21:00 10/31/16 20:59 10/02/16 21:38 100 MG Furosemide (Lasix Tab) 20 mg QAM PO 10/01/16 09:00 10/31/16 08:59 10/03/16 08:23 20 MG Losartan Potassium (coZAAR TAB) 100 mg QPM PO 10/01/16 21:00 10/31/16 20:59 10/02/16 21:39 100 MG Mycophenolate Mofetil (Cellcept Cap) 500 mg BID PO 10/01/16 09:00 10/31/16 08:59 Future Hold 10/01/16 08:05 500 MG Nifedipine (Procardia Xl Tab) 60 mg BID PO 10/01/16 09:00 10/31/16 08:59 10/03/16 08:23 60 MG Tramadol HCl (Ultram Tab) 50 mg Q6 PRN PO 10/01/16 03:15 10/31/16 03:14 Calcitriol (Rocaltrol Cap) 0.25 mcg MoWeFr@0900 PO 10/02/16 09:00 11/01/16 08:59 10/02/16 07:50 0.25 MCG Piperacillin Sod/ Tazobactam Sod (Consult) 1 ea UD PRN N/A 10/01/16 04:00 10/31/16 03:59 Tacrolimus (Prograf Cap) 1 mg BID PO 10/01/16 21:00 10/31/16 08:59 10/03/16 08:24 1 MG Heparin Sodium (Porcine) (Heparin Iv Bolus) 2,000 unit ONE IV 10/03/16 09:45 10/03/16 09:46 UNV Epoetin Barrett (Procrit Inj) 8,000 units ONE ONCE IV. 10/03/16 09:45 10/03/16 09:46 UNV Impression (1) ESRD (end stage renal disease) (2) Renal transplant disorder (3) Decreased GFR (4) Metabolic acidosis (5) UTI (urinary tract infection) (6) Anemia Mr. 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 He was hoping to have a preemptive LURT at [facility] but this has unfortunately been delayed. It is currently scheduled for October 24. He has been started on Zosyn for presumed UTI. Cultures are pending. Clinically, symptoms are improving. Immunosuppression has been adjusted. Recommendations ESRD: -- 2nd run HD today. Orders entered into EMR and HD RN notified. -- Awaiting results of 24 hour urine collection -- I have spoken w/ Wash House Worker this am. They are working to set up outpatient IHD at [facility] [place] Dr. Robinson Kaur, DO -- I have called [facility] and spoken w/ Eden (kiln charger). HD orders were provided. She is working to set up time and HD schedule -- Will ask staff anesthesiologist to fax most recent lab results and hepatitis serologies to [facility] this am. EDUCATION REPORTER: -- CellCept has been stopped and Tacrolimus dose reduced to 1 mg BID UTI/recurrent cystitis: -- Currently on Zosyn -- Admission Urine culture was negative. Consider stopping Zosyn after today Anemia: -- Iron saturation 24% w/ ferritin 163. No acute indication for IV iron at this time -- Will provide CLARISA w/ HD today Hypertension: -- Continue atenolol, nifedipine, losartan and furosemide as Rx CKD/MBD: -- Continue calcitriol MWF
[2016-10-03] MEDS ORDERED: HEPARIN SOD (PORCINE) 1000 UNIT/ML 10 ML VIAL IV SCH (10:30)
[2016-10-03] MEDS ORDERED: EPOETIN ALFA INJ 8,000 UNITS in SYRINGE 0 ML IV. SCH (10:30)
--- NOTE | 2016-10-03 10:48 | Discharge Summary ---
Discharge Summary Date of Service Oct 04, 2016. (Declan Soliz M.D.) Discharge Summary Admission Date: Oct 01, 2016 at 03:11 Discharge Disposition: Home Principal Diagnosis: ESRD Immunizations: Have You Had Influenza Vaccine: Unknown History of Tetanus Vaccine?: Unknown History of Pneumococcal: Unknown History of Hepatitis B Vaccine: Unknown Procedures: ABDOMEN 2VIEW W/PA CHEST RTN CLINICAL HISTORY: subjective f/c dyspnea COMPARISON STUDY: No previous studies for comparison. FINDINGS: Moderate increase in fecal load a sending and transverse colon. Nonobstructive bowel pattern. Lungs are clear. Diaphragms smooth. IMPRESSION: 1. Negative chest. 2. Increased fecal load within the a sending and transverse colon. Echocardiogram Report (10/02/16) * Reason For Study: Murmur * BSA: 2.0 m2 * Normal biventricular systolic function. * Mild concentric left ventricle hypertrophy. * Mild left atrial dilatation. * Trace mitral and tricuspid regurgitation. * No significant valvular abnormalities. (Declan Soliz M.D.) Medication Reconciliation New Medications: Tacrolimus (Tacrolimus) 1 Mg Cap 1 MG PO BID for 30 Days, #60 CAP Continued Medications: Atenolol (Tenormin) 100 Mg Tab 100 MG PO QPM, TAB Calcitriol (Rocaltrol Cap) 0.25 Mcg Cap 0.25 MCG PO 3XWK, CAP MON,SUN,FRI Darbepoetin Barrett-Polysorbate 8 (Aranesp Albumin Free) 40 Mcg/0.4 Ml Inj 1 DOSE INJ MONTHLY Furosemide (Lasix) 20 Mg Tab 20 MG PO QAM, TAB Losartan Potassium (Cozaar) 100 Mg Tab 100 MG PO QPM, TAB Nifedipine Ext Rel (Procardia Xl Ext Rel) 60 Mg Tabcr 60 MG PO BID, TAB Tramadol HCl (Tramadol HCl) 50 Mg Tab 50 MG PO Q6 PRN for Pain for 10 Days, #40 TAB 0 Refills Discontinued Medications: Mycophenolate Mofetil (Cellcept) 500 Mg Tab 500 MG PO BID, TAB Sodium Bicarbonate (Sodium Bicarbonate) 650 Mg Tab 650 MG PO BID Tacrolimus (Prograf) 1 Mg Cap 4 MG PO BID, CAP Discharge Exam Subjective The patient was seen and examined at bedside. No acute overnight events. Pt received hemodialysis yesterday and states that he is ready to go home today. Patient is resting comfortably in bed. Denies having any pain. Eating and urinating well. Plan of care was described to the patient and all questions were answered. Constitutional: No fever, No chills, No sweats Eyes: No redness Respiratory: No cough, No sputum, No wheezing, No shortness of breath Cardiovascular: No chest pain, No edema Abdomen: No pain, No nausea, No vomiting, No diarrhea Male : No dysuria Physical Exam General Appearance: WD/WN, no apparent distress Eyes: normal inspection Neck: supple Respiratory/Chest: chest non-tender, lungs clear, normal breath sounds, no respiratory distress, no accessory muscle use Cardiovascular: regular rate, rhythm, no edema, no gallop, no JVD, + pertinent finding (heart murmur) Abdomen: normal bowel sounds, non tender, soft, no organomegaly, + pertinent finding (s/p renal transplant in RLQ) Extremities: normal range of motion, non-tender, normal inspection, no pedal edema, no calf tenderness, + pertinent finding (mature AVF in right antecubital fossa) Neurologic/Psychiatric: maintenance groundskeeper II-XII nml as tested, no motor/sensory deficits, alert, normal mood/affect, oriented x 3 Skin: no rash (Declan Soliz M.D.) No concerns today Review of Systems: Constitutional: No fever Respiratory: No shortness of breath Cardiovascular: No chest pain Abdomen: No pain, No nausea, No vomiting Physical Exam: General Appearance: no apparent distress Respiratory/Chest: lungs clear, no respiratory distress Cardiovascular: regular rate, rhythm Abdomen / GI: normal bowel sounds, non tender, soft Neurologic/Psychiatric: alert, oriented x 3 (Judit Suarez M.D.) Hospital Course 41M with a PMHx of 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 Renal transplant scheduled for October 24. UA was suggestive for UTI and pt was started on empiric Zosyn. Urine cultures came back negative and pt was not discharged on any antibiotics. While in the hospital nephrology was consulted, based on their recommendations Immunosuppression was adjusted. Pt received two courses of Hemodialysis at [facility] on 10/02 and 10/03 with CLARISA supplementation. A 24 hour urine collection was started. Pt was discharged on good condition with Hemodialysis appointments set up at [facility] in [place]. Due to a heart murmur on auscultation an echocardiogram was ordered. Echo showed grossly normal findings except some trace mitral and tricuspid regurgitation. On discharge we will maintain our adjusted dose of Immunomodulators (CellCept was stopped and Tacrolimus dose reduced to 1 mg BID) and continue to hold the Bicarbonate tablets 650mg PO BID. All other medications will be resumed. Total Time Spent: Greater than 30 minutes This includes examination of the patient, discharge planning, medication reconciliation, and communication with other providers. (Declan Soliz M.D.) Resident Physician Supervision Note: I was present with Dr. Soliz in bedside. I verified the laboy history and physical, reviewed labs and image studies, discussed the case with the resident and agree with the findings and care plan. Total Time Spent: Greater than 30 minutes (40) (Judit Suarez M.D.) Discharge Instructions Please refer to the electronic Patient Visit Report (Discharge Instructions) for additional information. (Declan Soliz M.D.) Follow-Up Please keep all follow up nephrology and Hemodialysis appointments. (Declan Soliz M.D.) Additional Copies To Gabi Aragon M.D.; Robinson Kaur D.O. Resident Involvement: Resident Care Provided Care Provided: [facility] (Declan Soliz M.D.)
[2016-10-03] MEDS ORDERED: PRG1 PO (10:53)
--- NOTE | 2016-10-03 11:07 | Discharge Instructions ---
Discharge Instructions Date of Service Oct 03, 2016. Admission Reason for Admission: Elevated Serum Creatinine, Sepsis Discharge Discharge Diagnosis / Problem: End State Renal Disease Discharge Goals Goal(s): Decrease discomfort, Improve function, Increase independence, Improve nutritional status, Learn about illness, Diagnostic testing Activity Recommendations Activity Limitations: resume your previous activity . Instructions / Follow-Up Instructions / Follow-Up Hemodialysis is set up for you at [facility] in [place]. Your first appointment is on 10/06/16 at 2.30pm Please keep all arranged follow up appointments with Dr. Kaur. You should have an appointment with Dr. Kaur within the next two weeks. Our nurse navigator has been asked to arrange this follow up for you if it has not been scheduled already. We have held your CellCept medication and made an adjustment to the Tacrolimus medication to 1mg twice daily. We are also asking you not to take your bicarbonate. You may resume all of your other blood pressure medications. Current Hospital Diet Patient's current hospital diet: Renal Diet Discharge Diet Recommended Diet: Renal Diet Pending Studies Studies pending at discharge: no Medical Emergencies . Who to Call and When: Medical Emergencies: If at any time you feel your situation is an emergency, please call 911 immediately. . Non-Emergent Contact Non-Emergency issues call your: Primary Care Provider, Community Service Manager . . "Provider Documentation" section prepared by Declan Soliz. . VTE Core Measure Inpt VTE Proph given/why not?: Unfractionated heparin SQ, SCD's Resident Involvement: Resident Care Provided Care Provided: Adult Hospital Medicine
--- NOTE | 2016-10-03 13:04 | Family Medicine Progress Note ---
Progress Note Date of Service Oct 03, 2016. Subjective Pt evaluation today including: conversation w/ patient The patient was seen and examined at bedside. No acute overnight events. Pt received hemodialysis yesterday and states that he is ready to go home today. Patient is resting comfortably in bed. Denies having any pain. Eating and urinating well. Plan of care was described to the patient and all questions were answered. Constitutional: No fever, No chills, No sweats Eyes: No redness Respiratory: No cough, No sputum, No wheezing, No shortness of breath Cardiovascular: No chest pain, No edema Abdomen: No pain, No nausea, No vomiting, No diarrhea Male : No dysuria Objective Physical Exam Notes: Physical Exam General Appearance: WD/WN, no apparent distress Eyes: normal inspection Neck: supple Respiratory/Chest: chest non-tender, lungs clear, normal breath sounds, no respiratory distress, no accessory muscle use Cardiovascular: regular rate, rhythm, no edema, no gallop, no JVD, + pertinent finding (heart murmur) Abdomen: normal bowel sounds, non tender, soft, no organomegaly, + pertinent finding (s/p renal transplant in RLQ) Extremities: normal range of motion, non-tender, normal inspection, no pedal edema, no calf tenderness, + pertinent finding (mature AVF in right antecubital fossa) Neurologic/Psychiatric: manager provider relations II-XII nml as tested, no motor/sensory deficits, alert, normal mood/affect, oriented x 3 Skin: no rash Assessment and Plan 41M with a PMHx of 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 Renal transplant scheduled for October 24. On Zosyn. Immunosuppression was adjusted. Hemodialysis at [facility] on 10/02 and 10/03/16. Urine and Blood cultures negative to date. Uncertain whether symptoms are from infection or ESRD, likely components of both. Awaiting approval for Renal in [place] for discharge. End State Renal Disease - Pt is feeling better than yesterday. - Creatinine is 8.3<--8.4<--8.7, baseline is 3-4. - Pt will receive dialysis here PRN until discharge. - Appreciate Dr. Delgado's recommendations. * Obtain 24 hour urine creatinine clearance * Will consult [facility] to set up outpatient [facility]HD at [facility] in [place], [place] w/ Dr. Robinson Kaur, DO * Dialysis today - risks and benefits reviewed. * Hold Bicarb 650mg PO BID Sepsis 2/2 UTI - Improving clinically on Zosyn. - Urine had LE and WBC, previous cultures grew Staph Aureus, - Urine and blood culture was negative to date. - c/w Zosyn, stop Vancomycin. - MRSA swab negative Immunosuppression for allograft kidney - Hold Mycophenolate Mofetil 500mg PO BID Anemia - Iron saturation 24% w/ ferritin 163. 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 (M,W,F) HTN - continue Atenolol 100mg PO QPM - continue Lasix 20mg PO QAM - continue Losartan 100mg PO QPM - continue Nifedipine 60mg PO BID Heart Murmur - Likely incidental finding, will order AJ. Diet - Renal Diet DVT Proph: Hep SQ BID, SCDs Dispo: Med Surg Full Code Resident Involvement: Resident Care Provided Care Provided: Adult Hospital Medicine Reviewed: Pt Seen/Exam by Me History no new concerns Constitutional: denies: fever Respiratory: negative: short of breath Cardiovascular: denies chest pain General Appearance: no apparent distress Respiratory: lungs clear, no respiratory distress Cardiovascular: regular rate, rhythm Neurologic/Psychiatric: alert, oriented x 3 Skin Characteristics: warm/dry Assessment/Plan Resident Physician Supervision Note: I was present with Dr. Soliz in bedside. I verified the laboy history and physical, reviewed labs and image studies, discussed the case with the resident and agree with the findings and care plan.
[2016-10-03] MEDS: PIPERACILL/TAZOBAC IV 3.375 GM in DEXTROSE 5% 100ML 100 ML IV SCH (14:44)
[2016-10-03 15:37] LABS: PATIENT HEIGHT 180.3 cm
[2016-10-03 18:01] LABS: URINE TOTAL PROTEIN 260.9 mg/dl (0-11.9)
[2016-10-03 18:06] LABS: URINE TOTAL PROTEIN CALC 2556.8 mg/24 hr (0-149.1)
[2016-10-03 18:07] LABS: CREATININE 7.8 mg/dl (0.6-1.4)
[2016-10-03] MEDS: LOSARTAN POTASSIUM 50 MG TAB PO SCH (20:59)
[2016-10-04] MEDS: PIPERACILL/TAZOBAC IV 3.375 GM in DEXTROSE 5% 100ML 100 ML IV SCH ×2 (01:01→11:43)
[2016-10-04 07:32] VITALS: BP 136/97; PULSE 75; TEMP 36.8; O2SAT 99
[2016-10-04] MEDS: NIFEdipine 30 MG CR TAB PO SCH (07:57)
[2016-10-04] MEDS: FUROSEMIDE 20 MG TAB PO SCH (07:57)
[2016-10-04] MEDS: TACROLIMUS 1 MG CAP PO SCH (07:58)
[2016-10-04 08:00] LABS: HEMATOCRIT 29.2 % (42-52); MEAN CELL VOLUME 86.1 fL (80-100); MEAN CORPUSCULAR HGB CONC 32.5 g/dl (32-36); MEAN PLATELET VOLUME 10.2 fL (7.4-10.4); PLATELET COUNT 235 K/uL (130-400); RED BLOOD COUNT 3.39 M/uL (4.7-6.1); WHITE BLOOD COUNT 8.02 K/uL (4.8-10.8)
[2016-10-04 08:15] LABS: BUN/CREATININE RATIO 4.7 (10-20); CALCIUM 8.3 mg/dl (8.5-10.1); CREATININE 7.5 mg/dl (0.60-1.40); POTASSIUM 4.7 mmol/L (3.5-5.1)
--- NOTE | 2016-10-04 09:21 | Nephrology Progress Note ---
Nephrology Progress Note Date of Service Oct 04, 2016. Chief Complaint Failed DDRT. Admitted w/ probable UTI Subjective Mr. Platt was seen & examined in his hospital room this morning. He had his second HD treatment yesterday. He dialyzed for 3 hours w/ 2 L UF. He was hemodynamically stable throughout the treatment. There were no complications. His AVF functioned well. He voices no new medical concerns at this time. Review of Systems Constitutional: No fever Cardiovascular: No chest pain Respiratory: No dyspnea at rest Abdomen: No pain, No nausea, No vomiting Genitourinary - Male: No dysuria Extremities: No leg edema A complete review of systems was performed. Pertinent positives are noted above. All other systems are negative. Vital Signs Last 8 Hrs Date Time Temp Pulse Resp B/P (MAP) Pulse Ox O2 Delivery O2 Flow Rate FiO2 10/04/16 07:32 36.8 75 16 136/97 (110) 99 Room Air Last Recorded Weight Weight (Kilograms): 74.600 Physical Exam General Appearance: no apparent distress Head: normocephalic, atraumatic Eyes: PERRL, EOMI Neck: no adenopathy Respiratory/Chest: lungs clear Cardiovascular: regular rate, rhythm Abdomen/GI: normal bowel sounds, non tender, soft Extremities/Musculoskelatal: no pedal edema Neurologic/Psych: alert, oriented x 3 Family History Patient reports no known family medical history. Social History Smokeless Tobacco Use: No Alcohol Use: none Drug Use: none Marital Status: single Occupation: employed Laboratory Results Past 24 Hours 10/04/16 07:36 10/04/16 07:36 Test 10/03/16 13:30 10/04/16 07:36 Urine Collection Time 24 HOURS Urine Total Volume 980 mL Urine Creatinine 81.0 mg/dl Urine Creatinine 24 Hour 0.8 gm/24 HR (0.6-2.5) Urine Creatinine Clearance 24 Hour 6.3 ml/min (97-137) Urine Total Protein 24 Hour 2556.8 mg/24 hr (0-149.1) Urine Total Protein 260.9 mg/dl (0-11.9) Red Blood Count 3.39 M/uL (4.7-6.1) Mean Corpuscular Volume 86.1 fL (80-100) Mean Corpuscular Hemoglobin 28.0 pg (25-34) Mean Corpuscular Hemoglobin Concent 32.5 g/dl (32-36) RDW Standard Deviation 45.5 fL (36.4-46.3) RDW Coefficient of Variation 14.4 % (11.5-14.5) Mean Platelet Volume 10.2 fL (7.4-10.4) Anion Gap 6.0 mmol/L (3-11) Est Creatinine Clear Calc Drug Dose 13.4 ml/min Estimated GFR () 9.3 Estimated GFR (Non- 8.0 BUN/Creatinine Ratio 4.7 (10-20) Calcium Level 8.3 mg/dl (8.5-10.1) Allergies Coded Allergies: Sulfamethoxazole w/Trimethoprim (Verified Allergy, Mild, Rash, 02/09/16) Medications Current Inpatient Medications Medications (Trade) Dose Ordered Sig/Willy Route Start Time Stop Time Status Last Admin Dose Admin Heparin Sodium (Porcine) (Heparin Sq 5000 Unit/0.5ml) 5,000 unit Q8H SQ 10/01/16 06:00 10/31/16 05:59 10/03/16 05:38 5,000 UNIT Acetaminophen (Tylenol Tab) 650 mg Q4H PRN PO 10/01/16 03:15 10/31/16 03:14 Magnesium Hydroxide (Milk Of Magnesia Susp) 30 ml Q6H PRN PO 10/01/16 03:15 10/31/16 03:14 Polyethylene (Miralax Powder Packet) 17 gm DAILY PRN PO 10/01/16 03:15 10/31/16 03:14 Zolpidem Tartrate (Ambien Tab) 5 mg HSZ PRN PO 10/01/16 03:15 10/31/16 03:14 Ondansetron HCl (Zofran Inj) 4 mg Q6H PRN IV 10/01/16 03:15 10/31/16 03:14 Piperacillin Sod/ Tazobactam Sod 3.375 gm/Dextrose 115 ml @ 28.75 mls/ hr Q12@0000,1200 IV 10/01/16 12:00 10/11/16 11:59 10/04/16 01:01 28.75 MLS/HR Atenolol (Tenormin Tab) 100 mg QPM PO 10/01/16 21:00 10/31/16 20:59 10/03/16 21:00 100 MG Furosemide (Lasix Tab) 20 mg QAM PO 10/01/16 09:00 10/31/16 08:59 10/04/16 07:57 20 MG Losartan Potassium (coZAAR TAB) 100 mg QPM PO 10/01/16 21:00 10/31/16 20:59 10/03/16 20:59 100 MG Mycophenolate Mofetil (Cellcept Cap) 500 mg BID PO 10/01/16 09:00 10/31/16 08:59 Future Hold 10/01/16 08:05 500 MG Nifedipine (Procardia Xl Tab) 60 mg BID PO 10/01/16 09:00 10/31/16 08:59 10/04/16 07:57 60 MG Tramadol HCl (Ultram Tab) 50 mg Q6 PRN PO 10/01/16 03:15 10/31/16 03:14 Piperacillin Sod/ Tazobactam Sod (Consult) 1 ea UD PRN N/A 10/01/16 04:00 10/31/16 03:59 Tacrolimus (Prograf Cap) 1 mg BID PO 10/01/16 21:00 10/31/16 08:59 10/04/16 07:58 1 MG Impression (1) ESRD (end stage renal disease) (2) Renal transplant disorder (3) Decreased GFR (4) Metabolic acidosis (5) UTI (urinary tract infection) (6) Anemia Mr. 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 He was hoping to have a preemptive LURT at [facility] but this has unfortunately been delayed. It is currently scheduled for October 24. He has been started on Zosyn for presumed UTI. Cultures are pending. Clinically, symptoms are improving. Immunosuppression has been adjusted. Recommendations ESRD: -- OK to discharge to home from Nephrology perspective -- 24 hour urine collection quantitated kidney function at 6 cc/min -- Patient is scheduled to have HD MWF starting at 2:30 pm at [facility] in [place], [place]. Dr. Robinson Kaur will be his attending Monotype Caster. Dr. Kaur will see patient during HD rounds at the [facility] dialysis unit. -- I have called [facility] and spoken w/ [facility] (credit charge authorizer [phone]). HD orders were provided. -- Most recent lab results and hepatitis serologies were faxed to [facility] yesterday -- Patient should stop his Sodium Bicarbonate and Calcitriol. These medications are no longer needed since he is on HD. This was discussed w/ patient this am -- Please provide Rx for Nephrovite one daily taken after dialysis on dialysis days FIELD TECHNICAL SUPPORT CONSULTANT: -- CellCept has been stopped and Tacrolimus dose reduced to 1 mg BID UTI/recurrent cystitis: -- Currently on Zosyn -- Admission Urine culture was negative. Consider stopping Zosyn after today Anemia: -- Iron saturation 24% w/ ferritin 163. No acute indication for IV iron at this time -- CLARISA has been provided w/ HD Hypertension: -- Continue atenolol, nifedipine, losartan and furosemide as Rx CKD/MBD: -- Stop Calcitriol. Will provide IV Zemplar at HD unit
[2016-10-04 10:27] VITALS: BP 136/97; PULSE 75; TEMP 36.8; O2SAT 99
== END 2016-10-04 13:00 | disposition home or self-care (01) | DRG 683 ==
LOC: C.EDB 22:41 → C.MS2W 10-01 03:11 → ENRESERV 10-01 03:22
PROVIDERS: ADMIT Hospitalist; ATTEND Family Medicine
PROC: 5A1D00Z (ICD-10-PCS; principal; 2016-10-02)
DX: N18.6 End stage renal disease (principal); Z94.0 Kidney transplant status; N03.9 Chronic nephritic syndrome with unspecified morphologic changes; N25.81 Secondary hyperparathyroidism of renal origin; E87.2 Acidosis; I12.0 Hypertensive chronic kidney disease with stage 5 chronic kidney disease or end stage renal disease; N17.9 Acute kidney failure, unspecified; Z99.2 Dependence on renal dialysis; Z88.2 Allergy status to sulfonamides; D63.1 Anemia in chronic kidney disease; M85.80 Other specified disorders of bone density and structure, unspecified site

== ENCOUNTER 2017-07-10 05:56 | Day surgery (SDC) | payer OTHER ==
[2017-06-29 09:05] VITALS: BMI 29.0
--- NOTE | 2017-06-29 09:47 | PAT Medication Instructions ---
Service Date Jun 29, 2017. Current Home Medication List Atenolol (Tenormin), 100 MG PO QAM Losartan Potassium (Cozaar), 100 MG PO QAM Mycophenolate Mofetil (Cellcept), 500 MG PO BID Nifedipine Ext Rel (Procardia Xl Ext Rel), 60 MG PO QAM Tacrolimus (Prograf), 7 CAP PO QPM Tacrolimus (Prograf), 8 CAP PO QAM Medication Instructions For Your Scheduled Surgery - Hold the following medications the morning of surgery: Losartan Potassium (Cozaar), 100 MG PO QAM - Take the following medications the morning of surgery with a sip of water: Tacrolimus (Prograf), 8 CAP PO QAM Nifedipine Ext Rel (Procardia Xl Ext Rel), 60 MG PO QAM Mycophenolate Mofetil (Cellcept), 500 MG PO BID Atenolol (Tenormin), 100 MG PO QAM - Take the following medications as scheduled the night before surgery: Tacrolimus (Prograf), 7 CAP PO QPM Mycophenolate Mofetil (Cellcept), 500 MG PO BID If you have any questions please call us at [phone] or [phone] or [phone]
[2017-06-29 09:58] LABS: BASO % 0.6 %; BASO ABS # 0.03 K/uL (0-0.2); EOS % 9.4 %; EOS ABS # 0.51 K/uL (0-0.5); HEMATOCRIT 32.3 % (42-52); HEMOGLOBIN 10.7 g/dL (14.0-18.0); IG# 0.02 K/uL (0.00-0.02); LYMPH % 45.9 %; LYMPH ABS # 2.49 K/uL (1.2-3.4); MEAN CORPUSCULAR HEMOGLOBIN 27.5 pg (25-34); MEAN CORPUSCULAR HGB CONC 33.1 g/dl (32-36); MEAN PLATELET VOLUME 9.2 fL (7.4-10.4); MONO % 12.2 %; MONO ABS # 0.66 K/uL (0.11-0.59); NEUT % 31.5 %; NEUT ABS # 1.72 K/uL (1.4-6.5); PLATELET COUNT 183 K/uL (130-400); RED CELL DISTRIBUTION WIDTH CV 14.9 % (11.5-14.5); RED CELL DISTRIBUTION WIDTH SD 45.3 fL (36.4-46.3); WHITE BLOOD COUNT 5.43 K/uL (4.8-10.8)
--- NOTE | 2017-06-29 10:12 | DIAGNOSTIC IMAGING REPORT ---
CHEST 2 VIEWS ROUTINE HISTORY: 42 years-old Male pat preoperative exam. No acute chest complaints. COMPARISON: Acute abdominal series radiographs 09/30/2016 TECHNIQUE: PA and lateral views of the chest FINDINGS: Mild right hemidiaphragmatic elevation. Cardiomediastinal and hilar silhouettes are within normal limits. There is no pneumothorax, pleural effusion or focal airspace consolidation. Mild subsegmental atelectasis of the right lung base. Bones of the chest appear grossly intact. IMPRESSION: Mild subsegmental right basilar atelectasis with right hemidiaphragmatic elevation. The above report was generated using voice recognition software. It may contain grammatical, syntax or spelling errors. Electronically signed by: Ignacio Hitchcock M.D. 06/29/2017 10:11 AM Dictated Date/Time: 06/29/2017 10:09 AM
[2017-06-29 10:13] LABS: CALCIUM 8.8 mg/dl (8.5-10.1); CREATININE 1.49 mg/dl (0.60-1.40); POTASSIUM 4.2 mmol/L (3.5-5.1)
[2017-06-29 10:32] LABS: PTT PATIENT 24.8 SECONDS (21.0-31.0)
[~2017-07-10] VITALS: Ht 180.3 cm; Wt 94.3 kg
[~2017-07-10 05:56] MED LIST changes: -CALC0.2510 PO; -DARB40IN3 INJ; -FURO20TA PO; -SODI650T8 PO; -ULT50X PO
[2017-07-10] MEDS ORDERED: NSS 1000ML IV SCH (06:00)
[2017-07-10] MEDS ORDERED: SODIUM CHLORIDE 0.9% 1000ML 1,000 ML IV SCH (06:00)
[2017-07-10] MEDS ORDERED: CEFAZOLIN 2000MG IV PUSH 15 ML IV SCH (06:00)
--- NOTE | 2017-07-10 06:12 | History and Physical ---
History & Physical Date of Service July 10, 2017. History & Physical CC: Functioning kidney transplant HPI: Mr. Platt had a right upper arm brachiocephalic AV fistula created in 2015 in order for the patient to begin hemodialysis. The patient states that it was used 4-5 times before him obtaining a kidney transplant in the summer of 2016. He states that his renal function continues to be stable as far as he is aware. He states that he has had significant discomfort in his right forearm and hand, particularly with use of it. He also complains of edema in his right forearm and hand with use. 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 He also admits some occasional paresthesias in his right hand. He denies any discoloration or severe pain in his right hand. He did undergo an ultrasound evaluation prior to today's appointment, which demonstrates a patent fistula with flow volume of over 4000. He does have what appears to be retrograde flow throughout the radial artery. Past Medical/Surgical History Surgical Problems: (1) History of kidney transplant Status: Chronic Family History Patient reports no known family medical history. Social History Smoking Status: Never Smoker Smokeless Tobacco Use: No Alcohol Use: none Drug Use: none Marital Status: single Occupational Status: employed Immunizations History of Influenza Vaccine: Unknown History of Tetanus Vaccine?: Unknown History of Pneumococcal: Unknown History of Hepatitis B Vaccine: Unknown Multi-Drug Resistant Organisms History of MDRO: No Allergies Coded Allergies: Sulfamethoxazole w/Trimethoprim (Verified Allergy, Mild, Rash, 02/09/16) Home Medications Scheduled Atenolol (Tenormin), 100 MG PO QPM Calcitriol (Rocaltrol Cap), 0.25 MCG PO 3XWK Darbepoetin Barrett-Polysorbate 8 (Aranesp Albumin Free), 1 DOSE INJ MONTHLY Furosemide (Lasix), 20 MG PO QAM Losartan Potassium (Cozaar), 100 MG PO QPM Mycophenolate Mofetil (Cellcept), 500 MG PO BID Nifedipine Ext Rel (Procardia Xl Ext Rel), 60 MG PO BID Sodium Bicarbonate (Sodium Bicarbonate), 650 MG PO BID Tacrolimus (Prograf), 4 MG PO BID Scheduled PRN Tramadol HCl (Tramadol HCl), 50 MG PO Q6 PRN for Pain Review of Systems Constitutional: No fever, No chills Respiratory: No cough, No sputum, No wheezing, No shortness of breath Cardiovascular: No chest pain Abdomen: No pain, No nausea, No vomiting Musculoskeletal: No joint pain, No swelling, No calf pain Genitourinary - Male: No hematuria, No dysuria, No urinary frequency, No urinary urgency, No urinary hesitancy Psychiatric: No depression symptoms Integumentary: No rash, No itch On physical exam, his vital signs are as follows: Blood pressure 146/72 with a heart rate of 72 and oxygenation 97% on room air. Constitutional: In general, the patient is a healthy-appearing for age, well-nourished, well-developed middle-aged male in no acute distress. He is ambulatory. Lungs are clear. Cor had a RRR. His right arm demonstrates an extremely large dilated vein for his AV fistula. This is tortuous throughout the upper arm with an excellent thrill and bruit. He does have palpable radial pulse in the right wrist; however, has become significantly more pronounced with compression of the fistula. His fingers have brisk capillary refill. There are no signs of distal ischemia. I do not sense any weakness on exam. Imp: Functioning kidney transplant Plan: Patient is admitted for ligation of his AV fistula of his right arm. I have discussed the risks options and benefits of the procedure with the patient. The patient understands the risks options and benefits and agrees to the procedure.
[2017-07-10 06:24] VITALS: BP 186/92; PULSE 92; TEMP 37.3; O2SAT 96; Ht 180.3 cm; Wt 94.3 kg
[2017-07-10] MEDS ORDERED: MIDAZOLAM HCL 1 MG/ML 2ML VIAL ONE (06:36)
[2017-07-10] MEDS ORDERED: FENTANYL CITRATE INJ 50 MCG/1 ML 2 ML VIAL ONE (06:37)
[2017-07-10] MEDS ORDERED: PROPOFOL IV EMULSION 10 MG/ML 20 ML VIAL ONE ×3 (06:44→07:48)
[2017-07-10 06:52] LABS: CALCIUM 8.9 mg/dl (8.5-10.1); CREATININE 1.6 mg/dl (0.60-1.40); POTASSIUM 3.7 mmol/L (3.5-5.1)
[2017-07-10] MEDS ORDERED: LIDOCAINE HCL 1% 20 ML VIAL ONE (07:00)
[2017-07-10] MEDS ORDERED: THROMBIN FOR SOLN 20000 UNIT KIT ONE (07:00)
[2017-07-10] MEDS ORDERED: GELATIN SPONGE 12-7MM ONE (07:00)
[2017-07-10] MEDS ORDERED: HEPARIN SOD (PORCINE) 1000 UNIT/ML 10 ML VIAL ONE (07:00)
[2017-07-10] MEDS ORDERED: EpINEphrine INJ 1MG/ML AMP 1 MG/ML AMP ONE (07:02)
[2017-07-10] MEDS ORDERED: BUPIVACAINE 0.5 % 5 MG/1 ML MPF 30ML VIAL ONE (07:02)
--- NOTE | 2017-07-10 07:09 | History & Physical Bridge Note ---
H&P Re-Evaluation Bridge Note: I have examined the patient, reviewed the History & Physical and in the interval since the performance of the History & Physical I have noted the following changes of clinical significance: No changes noted
[2017-07-10] MEDS ORDERED: ONDANSETRON INJ 2 MG/ML 2 ML VIAL ONE (07:53)
[2017-07-10] MEDS ORDERED: EpHEDrine SULFATE INJ 50 MG/ML AMP IV PRN (08:00)
[2017-07-10] MEDS ORDERED: ATROPINE SULFATE 0.1 MG/ML 5ML SYR IV PRN (08:00)
[2017-07-10] MEDS ORDERED: ONDANSETRON INJ 2 MG/ML 2 ML VIAL IV PRN (08:00)
[2017-07-10] MEDS ORDERED: FENTANYL CITRATE INJ 50 MCG/1 ML 2 ML VIAL IV PRN (08:00)
--- NOTE | 2017-07-10 08:27 | [facility] Post Operative Brief Note ---
Immediate Operative Summary Operative Date July 10, 2017. Pre-Operative Diagnosis Functioning kidney transplant Post-Operative Diagnosis Functioning kidney transplant Procedure(s) Performed Right Upper Extremity Fistula Ligation Surgeon Dr. Jose Daniel Rodrigues Transportation Services Representative Surgeon(s) None Estimated Blood Loss 25 ml Findings Consistent with Post-Op Diagnosis Specimens None per surgeon Drains None Anesthesia Type MAC Complication(s) none Disposition Accompanied Pt To Recover: no Disposition: Recovery Room / PACU
[2017-07-10] MEDS ORDERED: OXYC-57 PO (08:33)
--- NOTE | 2017-07-10 08:35 | Discharge Instructions ---
Discharge Instructions Date of Service July 10, 2017. Visit Reason for Visit: End Stage Renal Disease Discharge Discharge Diagnosis / Problem: Functioning renal transplant Discharge Goals Goal(s): Therapeutic intervention Activity Recommendations Activity Limitations: per Instructions/Follow-up section Shower/Bathe: tomorrow Anesthesia . Post Anesthesia Instructions: If you have had General Anesthesia or IV Sedation: * Do not drive today. * Resume driving when surgeon permits. * Do not make important decisions or sign legal documents today. * Call surgeon for: 1. Temperature elevations greater than 101 degrees F. 2. Uncontrollable pain. 3. Excessive bleeding. 4. Persistent nausea and vomiting. 5. Medication intolerance (nausea, vomiting or rash). * For nausea and vomiting use only clear liquids such as: tea, soda, bouillon until nausea subsides, then gradually increase diet as tolerated. * If you have any concerns or questions, call your surgeon's office. If physician is unavailable and it is an emergency, call 911 or go to the nearest emergency room. . Instructions / Follow-Up Instructions / Follow-Up Call [phone] to schedule a follow up appointment if one not already scheduled. ACTIVITY RECOMMENDATIONS: See Above SPECIAL CARE INSTRUCTIONS: Call your doctor if: * Temperature above 101 degrees * Pain not relieved by pain medicine ordered * There is increased drainage or redness from any incision * You have any unanswered questions or concerns. Diet Recommendations Recommended Home Diet: resume previous diet Procedures Procedures Performed: Right Upper Extremity Fistula Ligation Pending Studies Studies pending at discharge: no Medical Emergencies . Who to Call and When: Medical Emergencies: If at any time you feel your situation is an emergency, please call 911 immediately. . Non-Emergent Contact Non-Emergency issues call your: Surgeon . . "Provider Documentation" section prepared by Jose Daniel Rodrigues. . [place] Drug Monitoring Program Search Results: no issues identified
--- NOTE | 2017-07-10 08:40 | [facility] Operative Report ---
Operative Report Operative Date July 10, 2017. Pre-Operative Diagnosis Functioning kidney transplant Post-Operative Diagnosis Functioning kidney transplant Procedure(s) Performed Right Upper Extremity Fistula Ligation Surgeon Dr. Jose Daniel Rodrigues Wind Turbine Performance Engineer Surgeon(s) None Estimated Blood Loss 25 ml Findings Minimal filling of AV fistula once ligated. Specimens None per surgeon Drains None Anesthesia Type MAC Complication(s) none Disposition no Recovery Room / PACU Indications Patient's a 42-year-old white male with a functioning kidney transplant. He has a right upper arm AV fistula which is fairly large. It has a large amount of flow. It causes swelling during the day and interferes with his work. Ligation of the fistula was recommended.I have discussed the risks options and benefits of the procedure with the patient. The patient understands the risks options and benefits and agrees to the procedure. Description of Procedure The patient was taken to the operating room and placed in the supine position. After the right arm was prepped and draped in a sterile manner local anesthetic was administered over the arterial end of the AV fistula. The AV fistula just beyond the anastomosis was then ligated with 2-0 silk. Due to the size of the fistula we decided ligated the opposite end also. Local anesthetic was administered in the upper arm transverse incision was made and the fascia was identified. It was ligated at this level with a 2-0 silk also. There is still filling in the midportion of the arm which was fairly rapid. This area was then anesthetized with local anesthetic. A transverse incision was made. 2 large branches were seen filling the fistula fairly rapidly. These were also ligated. The AV fistula at that level was then opened. No further filling was seen. Adequate hemostasis was noted. The wounds were then closed in the usual fashion with a running 3-0 Vicryl suture for the subcutaneous layer and a 4-0 Vicryl suture for the skin layer. Dermabond was used for dressing.The patient left the operation room in satisfactory condition and tolerated the procedure well. All needle and sponge counts were correct at the end of the procedure. I attest to the content of the Intraoperative Record and any orders documented therein. Any exceptions are noted below.
--- NOTE | 2017-07-10 08:48 | Anesthesiology Progress Note ---
Anesthesia Post Op Note Date & Time July 10, 2017 at 08:48 Vital Signs Pain Intensity: 0 Vital Signs Past 12 Hours Date Time Temp Pulse Resp B/P (MAP) Pulse Ox O2 Delivery O2 Flow Rate FiO2 07/10/17 08:40 83 16 159/75 100 Oxymask 3 07/10/17 08:34 36.5 89 20 175/94 100 Oxymask 5 07/10/17 06:24 37.3 92 16 186/92 (123) 96 Room Air Notes Mental Status: alert / awake / arousable, participated in evaluation Pt Amnestic to Procedure: Yes Nausea / Vomiting: adequately controlled Pain: adequately controlled Airway Patency, RR, SpO2: stable & adequate BP & HR: stable & adequate Hydration State: stable & adequate Anesthetic Complications: no major complications apparent
[2017-07-10 08:55] VITALS: BP 146/70; PULSE 79; TEMP 36.6; O2SAT 97
[2017-07-10 09:25] VITALS: BP 161/94; PULSE 77; TEMP 36.6; O2SAT 98
[2017-07-10] MEDS ORDERED: NURSING VERBAL MED ORDER ONE (09:30)
[2017-07-10] MEDS ORDERED: OXYCODONE/ACETAMINOPHEN 5-325 TAB ONE (09:31)
== END 2017-07-10 09:52 | disposition home or self-care (01) ==
LOC: C.ACU 05:56
PROVIDERS: ATTEND Surgery Vascular Surgery
DX: M79.631 Pain in right forearm (principal); Z94.0 Kidney transplant status; Z88.1 Allergy status to other antibiotic agents; N18.9 Chronic kidney disease, unspecified

== ENCOUNTER 2017-07-13 16:48 | Emergency (ER) | payer OTHER ==
[~2017-07-13] VITALS: Ht 182.9 cm; Wt 94.0 kg
[~2017-07-13 16:48] MED LIST changes: +OXYC-57 PO
[2017-07-13 16:52] VITALS: Ht 182.9 cm; Wt 94.0 kg
[2017-07-13] MEDS ORDERED: SODIUM CHLORIDE 0.9% 1000ML 1,000 ML IV STA (16:58)
--- NOTE | 2017-07-13 17:00 | EMERGENCY ROOM VISIT NOTE ---
History Report prepared by [place]: Marzena Zaragoza Under the Supervision of: Dr. Birdie Oates M.D. First contact with patient: 16:56 Chief Complaint: WOUND DEHISCENCE Stated Complaint: OPENED INCISION POST SURG History of Present Illness The patient is a 42 year old male who presents to the Emergency Room with complaints of moderate right upper arm swelling beginning yesterday. He reports he had a fistula that he had for dialysis removed by Dr. Rodrigues recently as the patient had a transplant done in [place]. He states yesterday he noticed swelling and redness at the incision site and has also had a "watery mouth." He denies any chills, nausea, or SOB. Source of History: patient Onset: yesterday Position: other (surgical incision site) Symptom Intensity: mild Quality: other (swelling) Associated Symptoms: No chills, No SOB, No nausea Note: Positive "watery mouth" Review of Systems See HPI for pertinent positives & negatives. A total of 10 systems reviewed and were otherwise negative. Past Medical & Surgical Medical Problems: (1) Decreased GFR (2) Elevated serum creatinine (3) Hyperkalemia (4) Metabolic acidosis (5) Renal transplant disorder (6) Sepsis Surgical Problems: (1) History of kidney transplant Family History Patient reports no known family medical history. Social History Smoking Status: Never Smoker Drug Use: none Marital Status: single Housing Status: lives with family Occupation Status: employed Current/Historical Medications Scheduled Atenolol (Tenormin), 100 MG PO QAM Losartan Potassium (Cozaar), 100 MG PO QAM Mycophenolate Mofetil (Cellcept), 500 MG PO BID Nifedipine Ext Rel (Procardia Xl Ext Rel), 60 MG PO QAM Tacrolimus (Prograf), 7 CAP PO QPM Tacrolimus (Prograf), 8 CAP PO QAM Scheduled PRN Oxycodone/Acetaminophen 5MG/325MG (Percocet 5MG/325MG), 1 TABLET PO Q6H PRN for Pain Allergies Coded Allergies: Sulfamethoxazole w/Trimethoprim (Verified Allergy, Mild, Rash, 07/13/17) Physical Exam Vital Signs Date Time Temp Pulse Resp B/P (MAP) Pulse Ox O2 Delivery O2 Flow Rate FiO2 07/13/17 20:01 37.8 102 16 173/97 97 Room Air 07/13/17 19:25 101 07/13/17 18:57 100 16 165/99 96 Room Air 07/13/17 16:52 37.2 114 20 158/95 97 Room Air Physical Exam Vital signs reviewed. General: Well-appearing male, in no significant distress. HEENT: No scleral icterus, PERRLA, neck supple. Atraumatic. Cardiovascular: Regular rate and rhythm, no extra sounds. Pulmonary: Clear to auscultation bilaterally, normal work of breathing. Abdomen: Soft, nontender, nondistended, positive bowel sounds. Musculoskeletal: Atraumatic, no peripheral edema. Neurologic: Patient awake alert and oriented x 3 Skin: Warm, dry. Right upper extremity surgical incision that appears to be well healing with a significant amount of edema from the mid bicep region to the elbow and to the mid forearm. Mildly erythematous and warm to the touch. No drainage from the incision. Medical Decision & Procedures ER Provider Diagnostic Interpretation: Radiology results as stated below per my review and radiologist interpretation: R VENOUS DOPPLER UPR EXT UNIL HISTORY: 42 years-old Male R upper ext swelling s/p fistula removal acute right upper extremity pain and swelling COMPARISON: None available TECHNIQUE: Multiple real-time sonographic images of the right upper extremity deep venous structures were obtained assessing grayscale appearance, color and spectral flow FINDINGS: Partially occlusive thrombus of the right cephalic vein extends into the proximal upper arm and antecubital fossa. Cephalic vein extends towards the brachial artery. The internal jugular, subclavian, axillary, basilic, ulnar and radial arteries appear patent and unremarkable. IMPRESSION: 1. No sonographic evidence of deep venous thrombosis. 2. Partially occlusive thrombus of the right cephalic vein. The above report was generated using voice recognition software. It may contain grammatical, syntax or spelling errors. Electronically signed by: Ignacio Hitchcock M.D. 07/13/2017 6:49 PM Dictated Date/Time: 07/13/2017 6:46 PM RIGHT UPPER EXTREMITY ARTERIAL DOPPLER STUDY CLINICAL HISTORY: R ARM swelling COMPARISON STUDY: None. FINDINGS: The right common carotid artery and right vertebral artery appear patent. Triphasic flow throughout the right upper extremity arterial system. Elevated velocity of 286 cm/s within the right subclavian artery which may be artifactual or due to turbulent flow. The subclavian artery appears patent on the provided images. The remaining peak systolic velocities within the right upper extremity are within normal limits. IMPRESSION: No definite stenosis or occlusion within the right upper extremity arterial system. Questionable elevated velocities within the right subclavian artery could be artifactual or due to turbulent flow. Electronically signed by: Dev Sosa M.D. 07/13/2017 6:58 PM Dictated Date/Time: 07/13/2017 6:53 PM Laboratory Results 07/13/17 17:09 Red Blood Count 4.72, Mean Corpuscular Volume 82.2, Mean Corpuscular Hemoglobin 27.5, Mean Corpuscular Hemoglobin Concent 33.5, Mean Platelet Volume 9.3, Neutrophils (%) (Auto) 38.0, Lymphocytes (%) (Auto) 41.5, Monocytes (%) (Auto) 11.9, Eosinophils (%) (Auto) 8.0, Basophils (%) (Auto) 0.3, Neutrophils # (Auto ) 3.34, Lymphocytes # (Auto) 3.66, Monocytes # (Auto) 1.05, Eosinophils # (Auto ) 0.71, Basophils # (Auto) 0.03 07/13/17 17:09 Test 07/13/17 17:09 07/13/17 17:14 07/13/17 18:55 White Blood Count 8.82 K/uL (4.8-10.8) Red Blood Count 4.72 M/uL (4.7-6.1) Hemoglobin 13.0 g/dL (14.0-18.0) Hematocrit 38.8 % (42-52) Mean Corpuscular Volume 82.2 fL (80-100) Mean Corpuscular Hemoglobin 27.5 pg (25-34) Mean Corpuscular Hemoglobin Concent 33.5 g/dl (32-36) Platelet Count 234 K/uL (130-400) Mean Platelet Volume 9.3 fL (7.4-10.4) Neutrophils (%) (Auto) 38.0 % Lymphocytes (%) (Auto) 41.5 % Monocytes (%) (Auto) 11.9 % Eosinophils (%) (Auto) 8.0 % Basophils (%) (Auto) 0.3 % Neutrophils # (Auto) 3.34 K/uL (1.4-6.5) Lymphocytes # (Auto) 3.66 K/uL (1.2-3.4) Monocytes # (Auto) 1.05 K/uL (0.11-0.59) Eosinophils # (Auto) 0.71 K/uL (0-0.5) Basophils # (Auto) 0.03 K/uL (0-0.2) RDW Standard Deviation 42.5 fL (36.4-46.3) RDW Coefficient of Variation 14.1 % (11.5-14.5) Immature Granulocyte % (Auto) 0.3 % Immature Granulocyte # (Auto) 0.03 K/uL (0.00-0.02) Anion Gap 4.0 mmol/L (3-11) Est Creatinine Clear Calc Drug Dose 73.4 ml/min Estimated GFR () 63.2 Estimated GFR (Non- 54.5 BUN/Creatinine Ratio 11.1 (10-20) Calcium Level 8.5 mg/dl (8.5-10.1) Magnesium Level 2.5 mg/dl (1.8-2.4) Total Bilirubin 0.5 mg/dl (0.2-1) Direct Bilirubin < 0.1 mg/dl (0-0.2) Aspartate Amino Transf (AST/SGOT) 25 U/L (15-37) Alanine Aminotransferase (ALT/SGPT) 32 U/L (12-78) Alkaline Phosphatase 91 U/L (45-117) Total Protein 9.1 gm/dl (6.4-8.2) Albumin 3.7 gm/dl (3.4-5.0) Bedside Lactic Acid Venous 0.57 mmol/L (0.90-1.70) Urine Color DK YELLOW Urine Appearance CLOUDY (CLEAR) Urine pH 6.0 (4.5-7.5) Urine Specific [place] 1.022 (1.000-1.030) Urine Protein 2+ (NEG) Urine Glucose (UA) NEG (NEG) Urine Ketones NEG (NEG) Urine Occult Blood 3+ (NEG) Urine Nitrite NEG (NEG) Urine Bilirubin NEG (NEG) Urine Urobilinogen NEG (NEG) Urine Leukocyte Esterase TRACE (NEG) Urine WBC (Auto) 10-30 /hpf (0-5) Urine RBC (Auto) >30 /hpf (0-4) Urine Hyaline Casts (Auto) 1-5 /lpf (0-5) Urine Epithelial Cells (Auto) >30 /lpf (0-5) Urine Bacteria (Auto) NEG (NEG) Date/Time Source Procedure Growth Status 07/13/17 18:55 Urine , Clean Catch Urine Culture - Final NO GROWTH - LESS THAN 1,000 COLONIES/ML Complete Laboratory results per my review. Medications Administered Medications (Trade) Dose Ordered Sig/Willy Route Start Time Stop Time Status Last Admin Dose Admin Sodium Chloride 1,000 ml @ 999 mls/hr Q1H1M STAT IV 07/13/17 16:58 07/13/17 17:58 DC 07/13/17 17:23 999 MLS/HR Ceftriaxone Sodium (Rocephin Inj) 1 gm NOW STAT IV 07/13/17 19:19 07/13/17 19:22 DC 07/13/17 19:37 1 GM Doxycycline Hyclate (Vibramycin Cap) 100 mg ONE ONCE PO 07/13/17 19:30 07/13/17 19:31 DC 07/13/17 19:37 100 MG ECG Per My Interpretation Indication: tachycardia Rate (beats per minute): 104 Rhythm: sinus tachycardia Findings: no acute ischemic change, no ectopy ED Course 1656: Past medical records reviewed. The patient was evaluated in room B11. A complete history and physical examination was performed. 1657: Ordered Sodium Chloride 1000 ml @ 999 mls/hr IV 1802: Ordered Vancomycin HCl 1250 mg/Sodium Chloride 525 ml @ 200 mls/hr 1905: I reviewed the patient's case with Dr. Jose Daniel Rodrigues, Vascular Surgery. He thinks it is overuse so he recommends to marcus wrap it, ice, elevate, and then follow up. 1909: Upon reevaluation, the patient has a mild temperature but his white count and lactate are normal. The vancomycin will be stopped and he will receive Doxycycline and Ceftriaxone instead. He will follow up with Dr. Rodrigues on Sunday. I discussed findings with him. He verbalized agreement of the treatment plan. He was discharged home. 1918: Ordered Ceftriaxone Sodium 1 gm IV 1929: Ordered Doxycycline 100 mg PO Medical Decision Differential diagnosis: Etiologies such as cellulitis, DVT, arterial clot, abscess formation, vascular leak, seroma, infection, as well as others were entertained.. This patient was evaluated and appeared to be in no significant distress. IV access was obtained and laboratory work was drawn. The patient's right upper extremity is erythematous, warm and there is significant edema. Ultrasound of both the venous and arterial system was performed and reveals no evidence of significant clot. The patient has a normal white blood cell count and has a low -grade fever that developed in the emergency department. He was treated with IV vancomycin initially however I do feel he is stable for discharge. This antibiotic was discontinued and patient was started on IV ceftriaxone and oral doxycycline as he is allergic to sulfa. Patient was discharged with a prescription for Keflex and doxycycline for MRSA coverage. I did speak with Dr. Rodrigues of the vascular surgery service. He will see the patient in follow- up. Patient was informed of the findings, an Marcus wrap was applied for support. He is advised to elevate and ice. He will return to the ER for worsening symptoms or any medical concerns. Medication Reconcilliation Current Medication List: was personally reviewed by me Blood Pressure Screening Patient's blood pressure: Elevated blood pressure Blood pressure disposition: Elevated BP felt to be situational Consults Time Called: 1902 Consulting Physician: Dr. Jose Daniel Rodrigues, Vascular Surgery Returned Call: 1905 I reviewed the patient's case with Dr. Jose Daniel Rodrigues, Vascular Surgery. He thinks it is overuse so he recommends to marcus wrap it, ice, elevate, and then follow up. Impression Primary Impression: Cellulitis of right upper extremity Additional Impression: Status post removal of arteriovenous fistula Scribe Attestation The scribe's documentation has been prepared under my direction and personally reviewed by me in its entirety. I confirm that the note above accurately reflects all work, treatment, procedures, and medical decision making performed by me. Departure Information Dispostion Home / Self-Care Referrals Gabi Aragon M.D. (PCP) Forms HOME CARE DOCUMENTATION FORM, IMPORTANT VISIT INFORMATION, WORK / SCHOOL INSTRUCTIONS Patient Instructions My [facility] Additional Instructions Diagnosis: Cellulitis of the right upper extremity Use a compression dressing to minimize swelling. Elevate and ice the arm. Wash wounds with warm water and soap. Do not apply antibiotic ointment. Keflex 500 mg 4 times daily for 7 days. Doxycycline 100 mg twice daily for [address] Rodrigues Sunday morning for reevaluation within the next several days. Return to the emergency department immediately for high fevers greater than 101 , increased pain, swelling or any medical concerns. Problem Qualifiers
[2017-07-13 17:22] LABS: BASO % 0.3 %; BASO ABS # 0.03 K/uL (0-0.2); EOS ABS # 0.71 K/uL (0-0.5); HEMATOCRIT 38.8 % (42-52); IG# 0.03 K/uL (0.00-0.02); LYMPH % 41.5 %; LYMPH ABS # 3.66 K/uL (1.2-3.4); MEAN CELL VOLUME 82.2 fL (80-100); MEAN CORPUSCULAR HEMOGLOBIN 27.5 pg (25-34); MEAN CORPUSCULAR HGB CONC 33.5 g/dl (32-36); MEAN PLATELET VOLUME 9.3 fL (7.4-10.4); MONO % 11.9 %; MONO ABS # 1.05 K/uL (0.11-0.59); NEUT ABS # 3.34 K/uL (1.4-6.5); PLATELET COUNT 234 K/uL (130-400); RED CELL DISTRIBUTION WIDTH CV 14.1 % (11.5-14.5); RED CELL DISTRIBUTION WIDTH SD 42.5 fL (36.4-46.3); WHITE BLOOD COUNT 8.82 K/uL (4.8-10.8)
[2017-07-13 17:38] LABS: ALBUMIN 3.7 gm/dl (3.4-5.0); ALT/SGPT 32 U/L (12-78); AST/SGOT 25 U/L (15-37); BLOOD UREA NITROGEN 17 mg/dl (7-18); CALCIUM 8.5 mg/dl (8.5-10.1); CARBON DIOXIDE 27 mmol/L (21-32); CREATININE 1.53 mg/dl (0.60-1.40); GLUCOSE 87 mg/dl (70-99); POTASSIUM 4.3 mmol/L (3.5-5.1); SODIUM 135 mmol/L (136-145)
[2017-07-13 17:41] LABS: ALKALINE PHOSPHATASE 91 U/L (45-117); TOTAL PROTEIN 9.1 gm/dl (6.4-8.2)
[2017-07-13] MEDS: VANCOMYCIN IV 1,250 MG in SODIUM CHLORIDE 0.9% 500ML 500 ML IV STA ×2 (18:03→18:46)
[2017-07-13] MEDS ORDERED: VANCOMYCIN CONSULT ACTIVE PRN (18:15)
--- NOTE | 2017-07-13 18:51 | DIAGNOSTIC IMAGING REPORT ---
R VENOUS DOPPLER UPR EXT UNIL HISTORY: 42 years-old Male R upper ext swelling s/p fistula removal acute right upper extremity pain and swelling COMPARISON: None available TECHNIQUE: Multiple real-time sonographic images of the right upper extremity deep venous structures were obtained assessing grayscale appearance, color and spectral flow FINDINGS: Partially occlusive thrombus of the right cephalic vein extends into the proximal upper arm and antecubital fossa. Cephalic vein extends towards the brachial artery. The internal jugular, subclavian, axillary, basilic, ulnar and radial arteries appear patent and unremarkable. IMPRESSION: 1. No sonographic evidence of deep venous thrombosis. 2. Partially occlusive thrombus of the right cephalic vein. The above report was generated using voice recognition software. It may contain grammatical, syntax or spelling errors. Electronically signed by: Ignacio Hitchcock M.D. 07/13/2017 6:49 PM Dictated Date/Time: 07/13/2017 6:46 PM
--- NOTE | 2017-07-13 18:59 | DIAGNOSTIC IMAGING REPORT ---
RIGHT UPPER EXTREMITY ARTERIAL DOPPLER STUDY CLINICAL HISTORY: R ARM swelling COMPARISON STUDY: None. FINDINGS: The right common carotid artery and right vertebral artery appear patent. Triphasic flow throughout the right upper extremity arterial system. Elevated velocity of 286 cm/s within the right subclavian artery which may be artifactual or due to turbulent flow. The subclavian artery appears patent on the provided images. The remaining peak systolic velocities within the right upper extremity are within normal limits. IMPRESSION: No definite stenosis or occlusion within the right upper extremity arterial system. Questionable elevated velocities within the right subclavian artery could be artifactual or due to turbulent flow. Electronically signed by: Dev Sosa M.D. 07/13/2017 6:58 PM Dictated Date/Time: 07/13/2017 6:53 PM
[2017-07-13] MEDS ORDERED: CEFTRIAXONE SOD INJ 1 GM ADDVIAL IV STA (19:19)
[2017-07-13] MEDS ORDERED: DOXYCYCLINE HYCLATE 100 MG CAP PO ONE (19:30)
[2017-07-13 20:01] VITALS: BP 173/97; PULSE 102; TEMP 37.8; O2SAT 97
== END 2017-07-13 20:03 | disposition home or self-care (01) ==
LOC: C.EDB 16:50
DX: L03.113 Cellulitis of right upper limb (principal); Z94.0 Kidney transplant status; Z98.890 Other specified postprocedural states; Z88.2 Allergy status to sulfonamides

== ENCOUNTER 2019-07-01 17:14 | Inpatient (IN) ==
[2019-07-01] MEDS ORDERED: POLYETHYLENE (MIRALAX) 17 GM PACK PO PRN (20:44)
[2019-07-01] MEDS ORDERED: ONDANSETRON INJ 2 MG/ML 2 ML VIAL IV PRN (20:44)
[2019-07-01] MEDS ORDERED: ACETAMINOPHEN 325 MG TAB PO PRN (20:44)
[2019-07-01] MEDS ORDERED: cefTRIAXone SODIUM 2,000 MG in DEXTROSE 5% 50 ML IV SCH (21:00)
--- NOTE | 2019-07-01 21:02 | History & Physical Report ---
Date of Service July 01, 2019 Assessment & Plan (1) Kidney replaced by transplant: Suraj Lazcano is a 44 year old man with a PMH of Henoch-Schonlein purpura s/p 2 kidney transplants with acute on chronic renal failure and abdominal pain Abdominal Pain UTI possible pyelonephritis Elevated white count, patient febrile with positive urinalysis CT showing no clear signs of infection or obstruction, no perinephric abscess patient making small amount of cloudy dark urine Concern about possible pyelonephritis, received 1 dose of ceftriaxone and dilaudid for pain control at outside hospital Will continue with antibiotic therapy, going through records he did received daptomycin previously for UTI and has history of recurrent UTI. no cultures seen on record. Will treat with daptomycin tonight and day team will need to follow up with outside culture and susceptibility results. Acute on Chronic Renal Failure Creatinine up from baseline around 5 to 5.5 Patient admits to not eating or drinking much, received one liter of NSS at outside facility Will give normal saline at 80 mls/hour Strict I/O's Patient is amenable to receiving dialysis in the future and has discussed this with Dr. Kaur earlier this year. Hypocalcemia Likely secondary to patient's renal failure secondary hypoparathyroidism Patient with corrected Calcium of 8.2 in low normal range, continue vitamin D Elevated Lipase Will trend lipase to see if mild pancreatitis could be causing patient's abdominal pain. No evidence of ductal dilation on CT per outside read, imaging sent to radiology from outside facility DVT PPx: SCD's F/E/N: NSS 80 mls/hour Dispo: MEd/Surg for antibiotics, IV fluid and monitoring of renal function. Nephrology consulted. 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 He presented to outside facility in [place] today with worsening abdominal pain that started this morning and got progressively worse while he was at work. he noted the pain is located at the level of his belly button and below and is a sharp pain that is both constant and worse when pressed. He has also had nausea without vomiting, no change in stools (Has not had a BM today yet), He has not had anything to eat or drink today. History of renal failure, in 1994 patient was found to be in renal failure had DDRT in 1994 which lasted for 20 years, in 2013 he started to undergo renal failure again and received another living unrelated donor transplant at that ti tx. His baseline creatinine has been around 5 recently and he has been oliguric. It had been as high as 7 last year. he is chronically anemic, he takes Darbepoetin monthly and used to be on an iron supplement but does not take that anymore. He is on mycophenolate mofetil and tacrolimus for immunosuppression. At outside facility he was found to have a urinalysis with 3+ blood 3+ protein, positive nitrite, 2+ leuk esterase, >100 WBC and bacteria, WBC of 13.7 Hgb of 8.8 which is about his baseline he tells me, Creatinine of 5.4 BUN of 48 Corrected Calcium of 8.3. Lipase elevated to 326. CT abdomen showing "No specific explanation of presenting complaints atrophic [place] kidneys with dilated collecting system bilaterally. Atrophic cortex of right pelvic transplant kidney with dilated collecting system. Left pelvic transplant kidney has collecting system dilation but normal cortical thickness,. Nonobstructingcalculus in the midportion of transplant kidneyadditional surrounding foci of calcification may be vascular. Moderate sized hiatal hernia." Patient follows with Dr. Kaur of nephrology here in [place] and decision was made to transfer to [facility] secondary to concern for worsening renal fucntion and possible pyelonephritis in donor kidney. Patient received one liter of normal saline and 1 gram of rocephin IV prior to transfer along with .5 mg Dilaudid x2. On arrival he feels his pain is much improved and he is making a small amount of cloudy urine. He has no other complaints, denies chills, sweats, SOB, chest pain, sick contacts, recent travel. 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 Patient drinks about 4 alcoholic beverages per week, is a nonsmoker, no recreational drug use. Full code Allergies Allergy/AdvReac Type Severity Reaction Status Date / Time Bactrim Allergy Mild Rash Verified 09/19/17 00:57 sulfamethoxazole Allergy Mild Rash Verified 05/06/19 15:41 trimethoprim Allergy Mild Rash Verified 05/06/19 15:41 Home Medications Home Medications Medication Instructions Recorded Confirmed Type atenolol 100 mg tablet 100 mg PO DAILY tab 04/28/19 07/01/19 History doxycycline hyclate 100 mg tablet 100 mg PO BID #14 tab 04/28/19 07/01/19 Rx lactulose 10 gram/15 mL (15 mL) 10 gm PO DAILY PRN #30 ml 04/28/19 07/01/19 Rx oral solution mycophenolate mofetil 250 mg 1,000 mg PO BID 04/28/19 07/01/19 History capsule prednisone 5 mg tablet 5 mg PO DAILY 04/28/19 07/01/19 History sodium bicarbonate 650 mg tablet 1,300 mg PO BID tab 04/28/19 07/01/19 History tacrolimus 1 mg capsule 8 mg PO BID cap 04/28/19 07/01/19 History darbepoetin james in polysorbat 100 100 mcg SUBCUT MONTHLY #1 ml 05/06/19 07/01/19 Rx mcg/mL in polysorbate injection ferrous sulfate 325 mg (65 mg 325 mg PO DAILY #90 tab 05/06/19 07/01/19 Rx iron) tablet ergocalciferol (vitamin D2) 1,250 mcg PO WK 07/01/19 07/01/19 History Past Med/Surg History Medical History (Updated 07/02/19 @ 10:15 by ALYSIA Hancock) ESRD (end stage renal disease) UTI (urinary tract infection) (Inactive) Surgical History History of kidney transplant (Inactive) Status post removal of arteriovenous fistula Social History Preferred Language: Swiss Communication Ability: Effective Shaping Machine Tender Required: No Beliefs That Will Affect Care: None Current Living Situation: Alone 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 Other Information That Helps Us Care for You: No Feels Safe at Home: Yes Safety Concerns: Feels Safe At This Time Smoking Status: Never smoker Do You Dip or Chew Tobacco: No ; Second Hand Exposure: No ; Hx Alcohol Use: Yes Alcohol type: beer Hx Substance Use: No Review of Systems Review of Systems: All systems reviewed & are unremarkable except as noted in HPI & below Physical Exam Constitutional: well developed and well nourished; no acute distress and no altered mental status Eyes: PERRL, conjunctivae normal, anicteric sclerae ENMT: external ear and nose normal, oropharynx normal Respiratory: normal respiratory effort, lungs clear to auscultation Cardiovascular: RRR, no murmur, no edema Heart Sounds: no click, no gallop, no murmur and no cardiac rub Extremities: no calf tenderness and no edema Gastrointestinal (Abdomen): Inspection/Auscultation: abdomen normal to inspection and normal bowel sounds; abdomen not distended Percussi on/Palpation: + abdomen tender (Tender at and inferior to umbilicus L =R ) Skin: no rashes, warm and dry Results & Data Results & Data ([facility]) Vital Signs (Past 12 Hours) Vital Signs Temp Pulse Resp BP Pulse Ox 07/01/19 20:28 37.8 C H 93 H 156/78 H 97 07/01/19 20:13 37.8 C H 93 H 20 156/78 H 97 Code Status & VTE Plan VTE Prophylaxis Plan VTE Prophylaxis will be ordered: Yes Supervising Physician Co-Signing Physician Notes Attending addendum: I have physically seen this patient, have supervised the medical residents activities, and agree with the H&P unless as otherwise noted. Assessment and Plan: UTI/transferred from [facility] for possible pyelonephritis/renal transplant history- Follow urine culture sensitivity from previous hospital. Received ceftriaxone 1 g IV at referring hospital. Give a dose of daptomycin IV due to history of potential resistant organism when seen by urology in the past. Acute kidney injury on chronic kidney disease/renal transplant- Given 1 L normal saline at referring hospital. Continue normal saline at 80 mils per hour. Repeat laboratories in a.m. Consult his chin strap sewer Dr. Kaur. Next Remainder of orders and notations as noted. Resident Activity Tracking Resident Involvement: Resident Care Provided Care Provided: Adult Hospital Medicine
[2019-07-01] MEDS ORDERED: DAPTOMYCIN CONSULT ACTIVE PRN (21:26)
[2019-07-01] MEDS: TACROLIMUS 1 MG CAP PO SCH (21:41)
[2019-07-01] MEDS: SODIUM BICARBONATE 650 MG TAB PO SCH (21:41)
[2019-07-01] MEDS: MYCOPHENOLATE MOFETIL 250 MG CAP PO SCH (21:41)
[2019-07-01] MEDS: HYDROmorphone INJ 0.5 MG/0.5 ML SYR IV PRN (21:48)
[2019-07-01] MEDS ORDERED: DAPTOmycin 475 MG in SYRINGE 0 ML IV SCH (22:00)
[2019-07-01 22:26] LABS: Creatinine Clr Calc Pharmacy 19.9 ml/min; Est GFR (Non-African American) 11.2
[2019-07-01] MEDS: SODIUM CHLORIDE 0.9% 1000ML 1,000 ML IV SCH (22:40)
[2019-07-02 05:47] LABS: Basophils # (auto) 0.03 K/uL (0-0.2); Basophils % (auto) 0.2 %; Eosinophils # (auto) 0.08 K/uL (0-0.5); Eosinophils % (auto) 0.5 %; Hemoglobin 8.6 g/dL (14.0-18.0); Immature Granulocytes # (auto) 0.05 K/uL (0.00-0.02); Immature Granulocytes % (auto) 0.3 %; Lymphocytes # (auto) 1.55 K/uL (1.2-3.4); Lymphocytes % (auto) 10.5 %; Mean Corpuscular Hemoglobin 28.1 pg (25-34); Mean Corpuscular Hgb Conc 33.1 g/dL (32-36); Mean Platelet Volume 10.7 fL (7.4-10.4); Monocytes % (auto) 8.8 %; Neutrophils % (auto) 79.7 %; Platelet Count 160 K/uL (130-400); RDW Coefficient of Variation 15.1 % (11.5-14.5); RDW Standard Deviation 46.7 fL (36.4-46.3); Red Blood Count 3.06 M/uL (4.7-6.1); White Blood Count 14.71 K/uL (4.8-10.8)
[2019-07-02 06:24] LABS: BUN Creatinine Ratio 9.6 (10-20); Calcium 7.9 mg/dl (8.5-10.1); Creatinine Clr Calc Pharmacy 19.9 ml/min; Est GFR (African American) 13.1; Est GFR (Non-African American) 11.3; Potassium 4.4 mmol/L (3.5-5.1)
[2019-07-02] MEDS: SODIUM BICARBONATE 650 MG TAB PO SCH ×2 (08:08→20:41)
[2019-07-02] MEDS: TACROLIMUS 1 MG CAP PO SCH ×2 (08:08→20:41)
[2019-07-02] MEDS: MYCOPHENOLATE MOFETIL 250 MG CAP PO SCH ×2 (08:10→20:40)
[2019-07-02] MEDS: predniSONE 5 MG TAB PO SCH (08:11)
[2019-07-02] MEDS: ATENOLOL 50 MG TABLET PO SCH (08:11)
[2019-07-02] MEDS ORDERED: FERROUS SULFATE 325 MG TAB PO SCH (09:00)
[2019-07-02] MEDS ORDERED: DAPTOmycin 500 MG VIAL IV SCH (09:00)
[2019-07-02] MEDS: SODIUM CHLORIDE 0.9% 1000ML 1,000 ML IV SCH (09:24)
[2019-07-02] MEDS: cefTRIAXone SODIUM 2,000 MG in DEXTROSE 5% 50 ML IV SCH (09:25)
--- NOTE | 2019-07-02 10:06 | Hospitalist Progress Note ---
Date of Service July 02, 2019 Assessment & Plan (1) Complicated UTI (urinary tract infection): UTI possible pyelonephritis Elevated white count, patient febrile with positive urinalysis CT showing no clear signs of infection or obstruction, no perinephric abscess patient making small amount of cloudy dark urine Will continue with antibiotic therapy, going through records he did received daptomycin previously for UTI and has history of recurrent UTI. No cultures seen on record. Will continue daptomycin and ceftriaxone for now and will await culture results from [facility] (2) Abdominal pain: Abdominal pain improving Lipase within normal limits (3) Kidney replaced by transplant: Consult nephrology (4) KRISHNA (acute kidney injury): Creatinine up from baseline around 5 to 5.5 Patient admits to not eating or drinking much, received one liter of NSS at outside facility Continue gentle hydration with normal saline at 80 mls/hour Strict I/O's Patient is amenable to receiving dialysis in the future and has discussed this with Dr. Kaur earlier this year (5) Status post removal of arteriovenous fistula: (6) ESRD (end stage renal disease): As above (7) DVT prophylaxis: SCDs Admission and Anticipated Discharge Date Admission Date: July 01, 2019 Subjective Mr. Lazcano is feeling better today. His abdominal pain has improved. He is not having any urinary symptoms. ROS Constitutional: no chills, aches, sweats or fever Respiratory: no sob,cough, sputum, or wheezing Cardiac: no chest pain, palpitations, edema, orthopnea or lightheadedness GI: no abdominal pain, nausea, vomiting, diarrhea or constipation : no dysuria or hesitancy Extremities: no joint pain or weakness Skin: no rash All other systems reviewed and negative Physical Exam Physical Exam: General: no distress Eyes: normal inspection, PERLL Respiratory: chest non tender, clear to auscultation, normal breath sounds, no respiratory distress, no accessory muscle use Cardiac: regular rate and rhythm, no rub or gallop, no murmur, no edema, no jvd GI/: active bowel sounds, no abd pain or tenderness, soft, non distended Extremities: normal range of motion, normal strength, non tender Neuro/Psych: alert and oriented x 3, normal mood and affect Skin: normal color, dry Results & Data Results & Data ([facility]) Vital Signs (Past 12 Hours) Vital Signs Temp Pulse Resp BP Pulse Ox 07/02/19 07:38 37.0 C 93 H 16 164/94 H 99 07/01/19 22:59 36.9 C 98 H 16 156/80 H 98 PG Care Time/CCT Total # of Minutes Spent Total Time Spent with Patient: Total time spent is greater than 50% in coordination of care (as documented) at patient's floor/unit and/or counseling patient: Coding Level of Care Code 43984 Subseq Hosp Care Lvl 3 Diagnoses Complicated UTI (urinary tract infection) N39.0 Abdominal pain R10.9 Kidney replaced by transplant Z94.0 KRISHNA (acute kidney injury) N17.9 Status post removal of arteriovenous fistula Z98.890 ESRD (end stage renal disease) N18.6 DVT prophylaxis Z29.9
[2019-07-02] MEDS ORDERED: EPOETIN ALFA 20,000 UNITS/ML VIAL SQ SCH (13:45)
[2019-07-02] MEDS ORDERED: NORMOSOL-R 1,000 ML IV SCH (13:45)
--- NOTE | 2019-07-02 13:48 | Nephrology Consultation ---
Date of Consultation July 02, 2019 Assessment & Plan (1) Complicated UTI (urinary tract infection): Urine culture pending. Afebrile. Significant bladder and allograft tenderness persists. Antibiotic therapy appropriate for kidney function. Given CT scan findings and based on comparison from prior CT and US, I am concerned that Suraj may require cystoscopy and decompression. Urology consultation has been requested consultation. (2) Abdominal pain: Evaluation notable for cystitis and concern for pyelonephritis of the functioning left lower quadrant renal allograft. (3) Kidney replaced by transplant: Creatinine stable. Allograft dysfunction advanced but thankfully no emergent indication for dialysis. Will continue gentle hydration with balanced IVF. Monitor metabolic profile daily and document I/O's. Continue NaHCO3 supplement for metabolic acidosis. Tacrolimus trough level will be obtained for dose adjustment as needed. Will provide IV Venofer 200 mg today as well as Epogen 10904 units for anemia of CKD. (4) KRISHNA (acute kidney injury): Continue gentle hydration. Creatinine relatively stable at baseline. No emergent indication for dialysis. (5) Status post removal of arteriovenous fistula: History of Present Illness Reason for Consultation: Kidney transplant dysfunction Requesting Physician: Roger Dominguez MD Attending Physician: Roger Dominguez MD History of Present Illness Mr. Suraj Platt is a 44-year-old male that I know well from the outpatient clinic. I have followed Suraj in the clinic over the past several years for management of his kidney dysfunction. Unfortunately, follow up is not always consistent. 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 It is noted that he had not maintained regular follow up in the transplant clinic unfortunately. He had evidence of acute kidney injury related to an URI. Creatinine improved to baseline of approximately 5.2 mg/dL with adequate hydration and antibiotic therapy. Unfortunately, renal imaging revealed progressive hydronephrosis with progressive dilation noted in the renal collecting system of his functional kidney allograft. Suraj had been evaluated for evidence of obstructive uropathy with the urology group at [facility] in [place] in the past. However, Suraj missed this evaluation. He states that he did not have appropriate transportation. Suraj also missed scheduled follow up in the nephrology clinic last week. He presented to the ER with acute lower abdominal pain yesterday. Evaluation was notable for UTI. CT scan of the abdomen demonstrates some progressive dilation of the allograft collecting system. PVR was checked today and found to be 71 ml. Suraj is being treated with IV ceftriaxone and Daptomycin. 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 Interestingly, the first AVF that he had placed had thrombosed in the past. Dr. Rodrigues ligated the AVF in June 2017 at Suraj's request. He had been following in the [facility] transplant Clinic with Dr. Mandel. pharmacy intake coordinator is Delilah ([phone]). Donor and recipient both EBV positive. CMV positive donor with negative recipient. He had 2 DSAs pretransplant with a negative cross match. Suraj reports a single post trans plant biopsy. He did not have rejection. There was mild persistent anemia. Within the past month hemoglobin has increased from 9.1 to 11. CBC is otherwise normal with a white count of 8+. Suraj is tolerating tacrolimus and Cellcept well. He denies significant side effects from medications. Suraj was on hemodialysis for 2 weeks prior to transplant. 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 It is unclear if he had a biopsy at the time of this diagnosis. He developed ESRD shortly after initial diagnosis requiring dialysis. Suraj was initially on PD but did not like to modality. He switched to in-center HD and eventually underwent a DDRT in 1994. This allograft function lasted approximately 20 years. He describes an uncomplicated transplant with immediate allograft function. Unfortunately, the kidney started to fail in 2013. This is around the time that he initially saw me in the nephrology clinic. By 2016, he required OTOLARYNGOLOGY SURGEON. Suraj was on HD for 2 weeks prior to undergoing a living unrelated donor transplant in October of 2016. Medical history also includes gross intermittent hematuria as well as chronic cysitis and recurrent UTI. He followed with urology in the past. Suraj was diagnosed with hypertension in 1994 following his kidney transplant he has been maintained on atenolol since that time. Nifedipine was added and he has been a stable dose of these medications for several years with appropriate control of his blood pressure. Allergies Allergy/AdvReac Type Severity Reaction Status Date / Time Bactrim Allergy Mild Rash Verified 09/19/17 00:57 sulfamethoxazole Allergy Mild Rash Verified 05/06/19 15:41 trimethoprim Allergy Mild Rash Verified 05/06/19 15:41 Home Medications Home Medications Medication Instructions Recorded Confirmed Type atenolol 100 mg tablet 100 mg PO DAILY tab 04/28/19 07/01/19 History doxycycline hyclate 100 mg tablet 100 mg PO BID #14 tab 04/28/19 07/01/19 Rx lactulose 10 gram/15 mL (15 mL) 10 gm PO DAILY PRN #30 ml 04/28/19 07/01/19 Rx oral solution mycophenolate mofetil 250 mg 1,000 mg PO BID 04/28/19 07/01/19 History capsule prednisone 5 mg tablet 5 mg PO DAILY 04/28/19 07/01/19 History sodium bicarbonate 650 mg tablet 1,300 mg PO BID tab 04/28/19 07/01/19 History tacrolimus 1 mg capsule 8 mg PO BID cap 04/28/19 07/01/19 History darbepoetin james in polysorbat 100 100 mcg SUBCUT MONTHLY #1 ml 05/06/19 07/01/19 Rx mcg/mL in polysorbate injection ferrous sulfate 325 mg (65 mg 325 mg PO DAILY #90 tab 05/06/19 07/01/19 Rx iron) tablet ergocalciferol (vitamin D2) 1,250 mcg PO WK 07/01/19 07/01/19 History Patient History Medical History (Updated 07/02/19 @ 10:15 by ALYSIA Hancock) ESRD (end stage renal disease) UTI (urinary tract infection) (Inactive) Surgical History History of kidney transplant (Inactive) Status post removal of arteriovenous fistula Social History Preferred Language: Telugu Communication Ability: Effective Donor Services Manager Required: No Beliefs That Will Affect Care: None Current Living Situation: Alone 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 Other Information That Helps Us Care for You: No Feels Safe at Home: Yes Safety Concerns: Feels Safe At This Time Smoking Status: Never smoker Do You Dip or Chew Tobacco: No ; Second Hand Exposure: No ; Hx Alcohol Use: Yes Alcohol type: beer Hx Substance Use: No Review of Systems Constitutional: no fever and no chills Eyes: no problem reported Ear, Nose, Mouth, Throat: no problem reported Respiratory: no problem reported Cardiovascular: no problem reported Gastrointestinal: + abdominal pain; no problem reported Genitourinary: + difficulty urinating and + urinary hesitancy; no dysuria, no urinary frequency, no urinary incontinence and no decreased urination Musculoskeletal: no problem reported Integumentary: no problem reported Neurologic: no problem reported Physical Exam Constitutional: well developed; no acute distress Eyes: + anicteric sclerae; no corneal abnormality ENMT: Mouth: no oral mucosal abnormality and oral mucous membranes not dry Neck: normal visual inspection and trachea midline Respiratory: normal respiratory effort Auscultation: lungs clear to auscultation bilaterally Cardiovascular: Rate/Rhythm: regular rate Heart Sounds: normal S1 and normal S2 Extremities: no edema Gastrointestinal (Abdomen): Percussion/Palpation: + abdomen tender, + guarding and abdomen soft; abdomen not rigid Musculoskeletal: Extremities: no cyanosis and no clubbing Skin: normal turgor; no lesions Neurologic: Motor/Sensory: no tremor and no asterixis Psychiatric: Orientation: alert and oriented x 3 Genitourinary: no CVA tenderness Results & Data Vital Signs (Past 12 Hours) Vital Signs Temp Pulse Resp BP Pulse Ox 07/02/19 07:38 37.0 C 93 H 16 164/94 H 99 Laboratory Results Laboratory Results - last 24 hr 07/01/19 07/02/19 07/02/19 21:24 04:58 04:58 WBC 14.71 H RBC 3.06 L Hgb 8.6 L Hct 26.0 L MCV 85.0 MCH 28.1 MCHC 33.1 RDW Std Deviation 46.7 H RDW Coeff of Adam 15.1 H Plt Count 160 MPV 10.7 H Immature Gran % (Auto) 0.3 Neut % (Auto) 79.7 Lymph % (Auto) 10.5 [place] % (Auto) 8.8 Eos % (Auto) 0.5 Baso % (Auto) 0.2 Immature Gran # (Auto) 0.05 H Neut # (Auto) 11.70 H Lymph # (Auto) 1.55 [place] # (Auto) 1.30 H Eos # (Auto) 0.08 Baso # (Auto) 0.03 Sodium 139 Potassium 4.4 Chloride 112 H Carbon Dioxide 19 L Anion Gap 8.0 BUN 54 H Creatinine 5.58 H* 5.56 H* Est Cr Clr Drug Dosing 19.9 19.9 Est GFR ( Amer) 13.0 13.1 Est GFR (Non-Af Amer) 11.2 11.3 BUN/Creatinine Ratio 9.6 L Glucose 118 H Calcium 7.9 L Lipase 234 PG Care Time/CCT Total # of Minutes Spent Total Time Spent with Patient: Total time spent is greater than 50% in coordination of care (as documented) at patient's floor/unit and/or counseling patient: Coding Level of Care Code 64154 Inpt Consult Level 4 Diagnoses Complicated UTI (urinary tract infection) N39.0 Abdominal pain R10.9 Kidney replaced by transplant Z94.0 KRISHNA (acute kidney injury) N17.9 Status post removal of arteriovenous fistula Z98.890
[2019-07-02] MEDS ORDERED: IRON SUCROSE 200 MG in 0.9 % SODIUM CHLORIDE 100 ML IV ONE (14:00)
[2019-07-02] MEDS ORDERED: cefTRIAXone SODIUM 1,000 MG in DEXTROSE 5% 50 ML IV SCH (15:00)
--- NOTE | 2019-07-02 15:58 | Urology Consultation ---
Date of Consultation July 02, 2019 Assessment & Plan (1) Complicated UTI (urinary tract infection): Assessment #1 lower urinary tract symptoms I believe these were probably related to the inflammation from his current UTI. I do not see that urine culture was done but he is on an antibiotic currently says he feels much better. #2 renal transplants. He had a renal ultrasound showing bilateral hydronephrosis of the craig kidneys and bilateral hydronephrosis of the transplant kidneys. There was nothing on the ultrasound to suggest renal abscess. Tenderness of the transplanted kidney is if there is any concern because of the hydronephrosis I think the patient would be better served by being evaluated at the transplant center where he had the transplants done For now I would continue his antibiotics since he is feeling better. If a culture was done I would try to get the results. History of Present Illness Attending Physician: Roger Dominguez MD History of Present Illness Patient is a 44-year-old white male who was admitted with severe lower abdominal pain. He has had 2 renal transplants he tells me the last transplant was done in 2016. He said the abdominal pain came on fairly quickly was rather severe. Since being in the hospital receiving antibiotics the pain has lessened considerably. He said he had some voiding difficulties but only with the infection several days prior to the and bladder infection his voiding habits consisted of Nocturia 1-2 Stream good Denied dysuria hematuria or hesitancy [place] like he empties his bladder completely Daytime frequency every 3-4 hours. He did have a postvoid residual here which was only 70 cc Allergies Allergy/AdvReac Type Severity Reaction Status Date / Time Bactrim Allergy Mild Rash Verified 09/19/17 00:57 sulfamethoxazole Allergy Mild Rash Verified 05/06/19 15:41 trimethoprim Allergy Mild Rash Verified 05/06/19 15:41 Home Medications Home Medications Medication Instructions Recorded Confirmed Type atenolol 100 mg tablet 100 mg PO DAILY tab 04/28/19 07/01/19 History doxycycline hyclate 100 mg tablet 100 mg PO BID #14 tab 04/28/19 07/01/19 Rx lactulose 10 gram/15 mL (15 mL) 10 gm PO DAILY PRN #30 ml 04/28/19 07/01/19 Rx oral solution mycophenolate mofetil 250 mg 1,000 mg PO BID 04/28/19 07/01/19 History capsule prednisone 5 mg tablet 5 mg PO DAILY 04/28/19 07/01/19 History sodium bicarbonate 650 mg tablet 1,300 mg PO BID tab 04/28/19 07/01/19 History tacrolimus 1 mg capsule 8 mg PO BID cap 04/28/19 07/01/19 History darbepoetin james in polysorbat 100 100 mcg SUBCUT MONTHLY #1 ml 05/06/19 07/01/19 Rx mcg/mL in polysorbate injection ferrous sulfate 325 mg (65 mg 325 mg PO DAILY #90 tab 05/06/19 07/01/19 Rx iron) tablet ergocalciferol (vitamin D2) 1,250 mcg PO WK 07/01/19 07/01/19 History Patient History Medical History (Updated 07/02/19 @ 10:15 by ALYSIA Hancock) ESRD (end stage renal disease) UTI (urinary tract infection) (Inactive) Surgical History History of kidney transplant (Inactive) Status post removal of arteriovenous fistula Social History Preferred Language: Greenlandic Communication Ability: Effective Statistical Reporting Analyst Required: No Beliefs That Will Affect Care: None Current Living Situation: Alone 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 Other Information That Helps Us Care for You: No Feels Safe at Home: Yes Safety Concerns: Feels Safe At This Time Smoking Status: Never smoker Do You Dip or Chew Tobacco: No ; Second Hand Exposure: No ; Hx Alcohol Use: Yes Alcohol type: beer Hx Substance Use: No Review of Systems Review of Systems: Review of systems reviewed from his admitting history and physical Physical Exam Physical Exam: Constitutional Well-developed well-nourished In no acute distress, Healthy appearing Neuro/psych Alert and oriented x3 Normal mood Normal affect Normal coordination Skin Normal color Normal turgor No rashes Warm and Dry Neck Normal visual inspection Pulmonary Normal rhythm and effort No respiratory distress No audible wheezes Able to speak in complete sentences Cardiac No peripheral edema Abdomen Soft nontender Phallus shows a normal male without lesion meatus normal size and position Both testes in the scrotal sac without mass or tenderness Results & Data Vital Signs (Past 12 Hours) Vital Signs Temp Pulse Resp BP BP Pulse Ox 07/02/19 15:18 36.4 C L 73 16 163/96 H 99 07/02/19 14:34 73 16 168/86 H 98 07/02/19 14:12 36.8 C 75 16 169/85 H 98 07/02/19 14:00 37.2 C 78 16 160/89 H 99 07/02/19 07:38 37.0 C 93 H 16 164/94 H 99 Laboratory Results Laboratory Results - last 24 hr 07/01/19 07/02/19 07/02/19 21:24 04:58 04:58 WBC 14.71 H RBC 3.06 L Hgb 8.6 L Hct 26.0 L MCV 85.0 MCH 28.1 MCHC 33.1 RDW Std Deviation 46.7 H RDW Coeff of Adam 15.1 H Plt Count 160 MPV 10.7 H Immature Gran % (Auto) 0.3 Neut % (Auto) 79.7 Lymph % (Auto) 10.5 [place] % (Auto) 8.8 Eos % (Auto) 0.5 Baso % (Auto) 0.2 Immature Gran # (Auto) 0.05 H Neut # (Auto) 11.70 H Lymph # (Auto) 1.55 [place] # (Auto) 1.30 H Eos # (Auto) 0.08 Baso # (Auto) 0.03 Sodium 139 Potassium 4.4 Chloride 112 H Carbon Dioxide 19 L Anion Gap 8.0 BUN 54 H Creatinine 5.58 H* 5.56 H* Est Cr Clr Drug Dosing 19.9 19.9 Est GFR ( Amer) 13.0 13.1 Est GFR (Non-Af Amer) 11.2 11.3 BUN/Creatinine Ratio 9.6 L Glucose 118 H Calcium 7.9 L Lipase 234 PG Care Time/CCT Total # of Minutes Spent Total Time Spent with Patient: Total time spent is greater than 50% in coordination of care (as documented) at patient's floor/unit and/or counseling patient: Coding Level of Care Code 87438 Initial Inpt Care Lvl 2 Diagnoses Complicated UTI (urinary tract infection) N39.0
[2019-07-03] MEDS: HYDROmorphone INJ 0.5 MG/0.5 ML SYR IV PRN (00:03)
--- NOTE | 2019-07-03 00:43 | Billing Data ---
Date of Service July 03, 2019 Coding Level of Care Code 11652 Initial Inpt Care Lvl 3
[2019-07-03 06:45] LABS: Basophils # (auto) 0.02 K/uL (0-0.2); Basophils % (auto) 0.2 %; Eosinophils # (auto) 0.29 K/uL (0-0.5); Eosinophils % (auto) 2.6 %; Hematocrit (blood only) 24.7 % (42-52); Hemoglobin 8.2 g/dL (14.0-18.0); Immature Granulocytes # (auto) 0.03 K/uL (0.00-0.02); Immature Granulocytes % (auto) 0.3 %; Lymphocytes # (auto) 1.71 K/uL (1.2-3.4); Lymphocytes % (auto) 15.5 %; Mean Corpuscular Hemoglobin 27.9 pg (25-34); Mean Corpuscular Hgb Conc 33.2 g/dL (32-36); Mean Platelet Volume 10.1 fL (7.4-10.4); Monocytes # (auto) 0.73 K/uL (0.11-0.59); Monocytes % (auto) 6.6 %; Neutrophils # (auto) 8.26 K/uL (1.4-6.5); Neutrophils % (auto) 74.8 %; Platelet Count 134 K/uL (130-400); RDW Coefficient of Variation 15.1 % (11.5-14.5); RDW Standard Deviation 47.1 fL (36.4-46.3); Red Blood Count 2.94 M/uL (4.7-6.1); White Blood Count 11.04 K/uL (4.8-10.8)
[2019-07-03 07:34] LABS: BUN Creatinine Ratio 9.8 (10-20); Calcium 8.5 mg/dl (8.5-10.1); Creatinine Clr Calc Pharmacy 20.4 ml/min; Est GFR (African American) 13.5; Est GFR (Non-African American) 11.6; Ferritin 158.7 ng/ml (8-388); Potassium 4.2 mmol/L (3.5-5.1)
[2019-07-03] MEDS: MYCOPHENOLATE MOFETIL 250 MG CAP PO SCH (08:48)
[2019-07-03] MEDS: predniSONE 5 MG TAB PO SCH (08:49)
[2019-07-03] MEDS: TACROLIMUS 1 MG CAP PO SCH (08:50)
[2019-07-03] MEDS: ATENOLOL 50 MG TABLET PO SCH (08:51)
[2019-07-03] MEDS: SODIUM BICARBONATE 650 MG TAB PO SCH (08:51)
[2019-07-03] MEDS: cefTRIAXone SODIUM 2,000 MG in DEXTROSE 5% 50 ML IV SCH (08:52)
--- NOTE | 2019-07-03 09:26 | Urology Progress Note ---
Date of Service July 03, 2019 Assessment & Plan (1) Complicated UTI (urinary tract infection): Clinically improving I do not believe he warrants any surgical intervention acutely Continue the medical management Continue with plan for follow-up with his urologist/transplant team in [facility] culture from [facility] En - no growth at 48hrs (2) Kidney replaced by transplant: Subjective Subjectively improved this morning He denies any discomfort He feels that he was comfortable throughout the night had a good night of sleep No fevers or chills No hematuria He feels he is making adequate amounts of urine Review of Systems Review of Systems: All systems reviewed & are unremarkable except as noted in HPI & below Physical Exam Constitutional: well developed and well nourished Neck: neck nontender Respiratory: normal respiratory effort; no respiratory distress and does not use accessory muscles Cardiovascular: Rate/Rhythm: regular rate Vessels: radial pulses present Extremities: no edema Gastrointestinal (Abdomen): Inspection/Auscultation: abdomen normal to ins pection Percussion/Palpation: abdomen soft; abdomen nontender (No tenderness over the right or left transplant kidney, no suprapubic tenderness, no CVA tenderness on the right or the left) and no guarding Musculoskeletal: Head/Neck/Chest: normocephalic and head atraumatic Extremities: extremities normal to inspection Skin: no rashes and no lesions Trauma: no evidence of skin trauma Neurologic: awake; not obtunded Speech / Cognition: normal speech Motor/Sensory: no tremor Psychiatric: Orientation: alert and oriented x 3 Genitourinary: no CVA tenderness Lymphatic: no lymphadenopathy Results & Data Vital Signs (Past 12 Hours) Vital Signs Temp Pulse Resp BP BP Pulse Ox 07/03/19 07:47 36.5 C 67 16 161/89 H 99 07/02/19 23:18 165/90 H 07/02/19 22:48 37.3 C 77 16 173/91 H 97 PG Care Time/CCT Total # of Minutes Spent Total Time Spent with Patient: Total time spent is greater than 50% in coordination of care (as documented) at patient's floor/unit and/or counseling patient: Coding Level of Care Code 64041 Subseq Hosp Care Lvl 2 Diagnoses Complicated UTI (urinary tract infection) N39.0 Kidney replaced by transplant Z94.0
--- NOTE | 2019-07-03 10:31 | Nephrology Progress Note ---
Date of Service July 03, 2019 Assessment & Plan (1) Complicated UTI (urinary tract infection): Urine culture results pending. Afebrile. Clinically improving. Urology consultation appreciated. Close outpatient follow up with [facility] urology encouraged. (2) Abdominal pain: Clinically improving with treatment of UTI. (3) Kidney replaced by transplant: Creatinine stable. Allograft dysfunction advanced but thankfully no emergent indication for dialysis. Continue NaHCO3 supplement for metabolic acidosis. Tacrolimus trough level sent this AM. Epogen 41245 units for anemia of CKD provided yesterday. Follow up with me in the nephrology clinic within 1 week of discharge. (4) KRISHNA (acute kidney injury): Creatinine stable at baseline. No emergent indication for dialysis. (5) Status post removal of arteriovenous fistula: Admission and Anticipated Discharge Date Admission Date: July 01, 2019 Subjective No acute events overnight. No fevers or chills. Suraj denies dysuria. No urinary symptoms. Mild lower quadrant abdominal discomfort persists. Urine slightly turbid but clearing. No hematuria or clots. Allograft tenderness improved. Review of Systems Review of Systems: All systems reviewed & are unremarkable except as noted in HPI & below Physical Exam Constitutional: well developed; no acute distress Eyes: + anicteric sclerae; no corneal abnormality ENMT: Mouth: no oral mucosal abnormality and oral mucous membranes not dry Neck: normal visual inspection and trachea midline Respiratory: normal respiratory effort Auscultation: lungs clear to auscultation bilaterally Cardiovascular: Rate/Rhythm: regular rate Heart Sounds: normal S1 and normal S2 Extremities: no edema Gastrointestinal (Abdomen): Percussion/Palpation: + abdomen tender (mild improving) and abdomen soft; no guarding and abdomen not rigid Musculoskeletal: Extremities: no cyanosis and no clubbing Skin: normal turgor; no lesions Neurologic: Motor/Sensory: no tremor and no asterixis Psychiatric: Orientation: alert and oriented x 3 Genitourinary: no CVA tenderness Results & Data ([facility]) Vital Signs (Past 12 Hours) Vital Signs Temp Pulse Resp BP BP Pulse Ox 07/03/19 07:47 36.5 C 67 16 161/89 H 99 07/02/19 23:18 165/90 H 07/02/19 22:48 37.3 C 77 16 173/91 H 97 Laboratory Results Laboratory Results - last 24 hr 07/03/19 07/03/19 07/03/19 06:31 06:31 06:31 WBC 11.04 H RBC 2.94 L Hgb 8.2 L Hct 24.7 L MCV 84.0 MCH 27.9 MCHC 33.2 RDW Std Deviation 47.1 H RDW Coeff of Adam 15.1 H Plt Count 134 MPV 10.1 Immature Gran % (Auto) 0.3 Neut % (Auto) 74.8 Lymph % (Auto) 15.5 [place] % (Auto) 6.6 Eos % (Auto) 2.6 Baso % (Auto) 0.2 Immature Gran # (Auto) 0.03 H Neut # (Auto) 8.26 H Lymph # (Auto) 1.71 Stoddard # (Auto) 0.73 H Eos # (Auto) 0.29 Baso # (Auto) 0.02 Sodium 141 Potassium 4.2 Chloride 114 H Carbon Dioxide 18 L Anion Gap 9.0 BUN 54 H Creatinine 5.43 H* Est Cr Clr Drug Dosing 20.4 Est GFR ( Amer) 13.5 Est GFR (Non-Af Amer) 11.6 BUN/Creatinine Ratio 9.8 L Glucose 100 H Calcium 8.5 Iron 191 H Transferrin 178 L Transferrin % Sat 76 H Ferritin 158.7 Tacrolimus Pending PG Care Time/CCT Total # of Minutes Spent Total Time Spent with Patient: Total time spent is greater than 50% in coordination of care (as documented) at patient's floor/unit and/or counseling patient: Coding Level of Care Code 33720 Subseq Hosp Care Lvl 3 Diagnoses Complicated UTI (urinary tract infection) N39.0 Abdominal pain R10.9 Kidney replaced by transplant Z94.0 KRISHNA (acute kidney injury) N17.9 Status post removal of arteriovenous fistula Z98.890
[2019-07-03 14:11] VITALS: BP 165/90
[2019-07-03 18:19] VITALS: PULSE 70; TEMP 97.5; O2SAT 100
--- NOTE | 2019-07-03 19:56 | Discharge Summary ---
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 He presented to outside facility in [place] today with worsening abdominal pain that started this morning and got progressively worse while he was at work. he noted the pain is located at the level of his belly button and below and is a sharp pain that is both constant and worse when pressed. He has also had nausea without vomiting, no change in stools (Has not had a BM today yet), He has not had anything to eat or drink today. 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 His baseline creatinine has been around 5 recently and he has been oliguric. It had been as high as 7 last year. he is chronically anemic, he takes Darbepoetin monthly and used to be on an iron supplement but does not take that anymore. He is on mycophenolate mofetil and tacrolimus for immunosuppression. At outside facility he was found to have a urinalysis with 3+ blood 3+ protein, positive nitrite, 2+ leuk esterase, >100 WBC and bacteria, WBC of 13.7 Hgb of 8.8 which is about his baseline he tells me, Creatinine of 5.4 BUN of 48 Corrected Calcium of 8.3. Lipase elevated to 326. CT abdomen showing "No specific explanation of presenting complaints atrophic [place] kidneys with dilated collecting system bilaterally. Atrophic cortex of right pelvic transplant kidney with dilated collecting system. Left pelvic transplant kidney has collecting system dilation but normal cortical thickness,. Nonobstructingcalculus in the midportion of transplant kidneyadditional surrounding foci of calcification may be vascular. Moderate sized hiatal hernia." Patient follows with Dr. Kaur of nephrology here in [place] and decision was made to transfer to [facility] secondary to concern for worsening renal fucntion and possible pyelonephritis in donor kidney. Patient received one liter of normal saline and 1 gram of rocephin IV prior to transfer along with .5 mg Dilaudid x2. On arrival he feels his pain is much improved and he is making a small amount of cloudy urine. He has no other complaints, denies chills, sweats, SOB, chest pain, sick contacts, recent travel. 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 Patient drinks about 4 alcoholic beverages per week, is a nonsmoker, no recreational drug use. Full code Principal Diagnosis pyelonephritis in transplanted kidney Discharge Exam gen [facility] [place] [facility] at mmm breathing unlabored no accessory muscles good effort skin no rashes no pallor or icterus neuro no focal deficits Discharge Data Allergies Allergy/AdvReac Type Severity Reaction Status Date / Time Bactrim Allergy Mild Rash Verified 09/19/17 00:57 sulfamethoxazole Allergy Mild Rash Verified 05/06/19 15:41 trimethoprim Allergy Mild Rash Verified 05/06/19 15:41 Consultations 07/01/19 22:25 Consult Nephrology Routine 07/02/19 13:35 Consult Urology Routine Hospital Course (1) Kidney replaced by transplant: home meds, tacrolimus level sent by nephro - pending (2) Status post removal of arteriovenous fistula: (3) KRISHAN (acute kidney injury): following actively w nephro - including during hospital stay. stable for discharge (4) Complicated UTI (urinary tract infection): pyelo. culture from [facility] negative, although this is not entirely uncommon in pyelo -improved on ceftriaxone and dapto; highly unlikely to have had MRSA-like pyelo; therefore more than likely 3rd gen [facility] affected improvement - safe for home on cefdinir. close f/u (5) ESRD (end stage renal disease): As above Total Time Total Time Spent Total Time Spent (In Minutes): <30 Discharge Plan Discharge Items Patient Disposition: Home - Self-Care Reason For Visit: PYELONEPHRITIS Discharge Diagnosis: pyelonephritis (kidney infection) Activity: Resume your previous activity Non-emergency contact: Primary Care Provider and [facility] Call non-emergency contact if: you have any medication questions, your symptoms worsen and your temperature is above 101 Follow-up/Referrals: Robinson Kaur DO [Physician] - (Office will call patient with appointment date and time) Robinson Rasmussen DO [Primary Care Provider] - Diet: Dialysis Renal Addtl Attending Provider Instructions: kidney infection -clinically things are getting better; in discussions with Dr Kaur, the culture at [facility] has not shown any growth on culture as of yet - as we discussed, that is something we see somewhere around 10% of the time for kidney infections. Since you got better pretty quickly with ceftriaxone, we'll finish out a course of treatment with a "close cousin" antibiotic called cefdinir - we'll treat for 14 days total (2 days were IV here in the hospital, so 12 more doses at home) - next dose tomorrow and once a day thereafter until the prescription has run out -follow up with Dr Kaur next week -as we discussed, if you feel worse or have a fever, we'd want you taken care of right away, although that would be quite unlikely to happen overall Pending Studies at Discharge: No Stand-Alone Forms: My [facility], Smoking Cessation Medications and DC Order Prescriptions: New cefdinir 300 mg capsule 300 mg PO DAILY Qty: 12 RF: 0 Continued atenolol 100 mg tablet 100 mg PO DAILY RF: 0 mycophenolate mofetil 250 mg capsule 1,000 mg PO BID RF: 0 prednisone 5 mg tablet 5 mg PO DAILY RF: 0 sodium bicarbonate 650 mg tablet 1,300 mg PO BID RF: 0 tacrolimus 1 mg capsule 8 mg PO BID RF: 0 lactulose 10 gram/15 mL (15 mL) solution 10 gm PO DAILY PRN (Reason: constipation) Qty: 30 RF: 1 ferrous sulfate 325 mg (65 mg iron) tablet 325 mg PO DAILY Qty: 90 RF: 3 darbepoetin james in polysorbat 100 mcg/mL solution 100 mcg subcut MONTHLY Qty: 1 RF: 3 ergocalciferol (vitamin D2) 1,250 mcg (50,000 unit) capsule 1,250 mcg PO WK RF: 0 Discontinued doxycycline hyclate 100 mg tablet 100 mg PO BID Qty: 14 RF: 0 Discharge Orders: Discharge Order (Routine); Ordered 07/03/19 Ordered By: Wyatt Hanley/Other Patient Handouts: Pyelonephritis Dc Admission Data Admit Date/Time: 07/01/19 20:44 Attending Provider: Wyatt Linton Admit Provider: Roger Dominguez Primary Care Provider: Robinson Rasmussen Other Providers: Robinson Kaur ; Esteban Lynn ; Roger Dominguez Other Interventions: Discharge Summary Assessment (RN) Last Done: 07/03/19 14:10 DC Date/Time DO NOT enter until pt leaves facility: 07/03/19 19:31 Coding Level of Care Code D/C Day Management <30 mins Diagnoses Kidney replaced by transplant Z94.0 Status post removal of arteriovenous fistula Z98.890 KRISHNA (acute kidney injury) N17.9 Complicated UTI (urinary tract infection) N39.0 ESRD (end stage renal disease) N18.6
[2019-07-03] MEDS ORDERED: DAPTOmycin 475 MG in SYRINGE 0 ML IV SCH (22:00)
[2019-07-06] MEDS ORDERED: ERGOCALCIFEROL 50,000 UNITS CAP PO SCH (09:00)
== END 2019-07-03 19:31 | disposition home or self-care (01) | DRG 698 ==
LOC: 3E → SUATTDRO 20:44

== ENCOUNTER 2020-11-14 17:02 | Inpatient (IN) ==
--- NOTE | 2020-11-14 18:05 | Emergency Department Note ---
Impression & Plan Pyelonephritis of left kidney, ESRD (end stage renal disease), Anemia, Acute hyperkalemia, Peritoneal dialysis catheter in place ED Provider Note NAME: VARUN GILMAN AGE: 45 SEX: M : 1975 ARRIVES VIA: Walk-In INFORMANT: Patient, ED PROVIDER(S): Juancarlos Frausto MD Chief Complaint: Fever, back pain HPI: Patient does present with concern for fever. The patient states that this developed in the last 1 to 2 days. The patient did have a recent peritoneal dialysis catheter that was placed on Sunday at [facility]. The patient is supposed to have this checked and flushed tomorrow with home health. The p atient is followed with Dr. Sheth with [facility] nephrology. The patient does not make any current urine but is a chronic dialysis patient who does receive dialysis Sunday last receive dialysis this past Sunday. Patient also did recently have a fatty tissue removal of the left chest that was completed within the last 2 weeks. Patient not take anything for his fever at home. The patient is unvaccinated. The patient denies any cough. Patient has had some abdominal pain is unsure as to whether or not this is secondary to the surgery or if it is from something else. The patient does have some left- sided flank pain. Patient states that sharp and worse with palpation. ROS: See HPI for pertinent positives and negatives. A total of 10 systems were reviewed and otherwise negative. Past medical history: See below Surgical history: See below Social history: See below Physical Exam: GENERAL: NAD, wearing a mask, non-toxic. EYE EXAM: Normal conjunctiva. PERRL, no anisocoria and EOM's grossly intact w/o pain. NECK: Supple, no nuchal rigidity, no adenopathy, non-tender. No signs of meningismus. LUNGS: Clear to auscultation. Normal chest wall mechanics. HEART: NSR, no MRG. ABDOMEN: Abdomen soft, left abdominal peritoneal dialysis catheter in place, insertion site without erythema, drainage or crepitus, normo-active bowel sounds, no masses, no rebound or guarding. BACK: Left-sided CVA TTP. No overlying skin changes. SKIN: No rashes and no bruising. UPPER EXTREMITIES: Upper extremities are grossly normal. Left upper extremity AV fistula with palpable thrill. LOWER EXTREMITIES: Grossly normal, no edema. NEURO EXAM: A&O x3, cranial nerves II-XII grossly intact, normal speech, moves all 4 extremities on command w/o issue. Differential diagnoses: Viral syndrome, otitis, pharyngitis, pneumonia, influenza, meningitis, urinary tract infection, sepsis, bacteremia, as well as other pathologies. Course: Patient was seen and evaluated the bedside. Full history physical exam was performed. EKG interpreted by me Normal sinus rhythm, rate of 83, normal intervals, normal axis, T wave inversion in lead III not in contiguous leads. No ST changes. Imaging Studies: See Below Cardiac monitoring: An order was placed for continuous cardiac monitoring. The monitor shows a rate of 92 with sinus rhythm. MDM: Patient did present with concern for fever and did have recent peritoneal dialysis catheter placed along with CVA tenderness to the left side. Blood work was obtained along with blood cultures. The patient does not make any urine. CT abdomen pelvis was completed along with a Covid swab. Patient was given a small fluid fluid bolus. Patient with a normal white count and anemia with hemoglobin 10.8. Kidney function is chronic end-stage renal disease creatinine at 13 potassium 5.2. Troponin not checked. Covid negative. Patient's chest x-ray shows stable cardiomegaly. The patient does have some bladder wall thickening as well as perinephric fat stranding of his transplanted kidney on the left. Given this with the reported recent peritoneal dialysis catheter believe the patient would benefit from inpatient treatment and antib iotics. The patient did receive his empiric antibiotics of Zosyn. Patient was hypertensive and was given IV hydralazine. I did speak the on-call hospitalist Dr. Arroyo and the patient was admitted to the medicine service. Past Med/Surg History Medical History Anemia COVID-19 GI bleed Sepsis UTI (urinary tract infection) Surgical History History of kidney transplant Renal transplant, status post Status post removal of arteriovenous fistula Family History Denies family history of Kidney disease Social History Smoking Status: Never smoker Second Hand Exposure: No; Do You Dip or Chew Tobacco: No; Tobacco Cessation Education Requested by Patient: No Hx Alcohol Use: No Hx Substance Use: No Preferred Language: American Communication Ability: Effective Telepathist Required: No Beliefs That Will Affect Care: None Current Living Situation: Alone Current Living Situation Comment: at home alone. indep. 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 Other Information That Helps Us Care for You: No Feels Safe at Home: Yes Safety Concerns: Feels Safe At This Time Assistive Devices: None Allergies Allergies Allergy/AdvReac Type Severity Reaction Status Date / Time Bactrim Allergy Mild Rash Verified 09/19/17 00:57 sulfamethoxazole Allergy Mild Rash Verified 11/14/20 18:23 trimethoprim Allergy Mild Rash Verified 11/14/20 18:23 Home Meds Home Medications Medication Instructions Recorded Confirmed amlodipine 10 mg tablet 10 mg PO PM 11/14/20 11/14/20 calcitriol 0.25 mcg capsule 0.25 mcg PO QAM 11/14/20 11/14/20 clonidine 0.1 mg/24 hr weekly 1 patch TRANSDERMAL WK 11/14/20 11/14/20 transdermal patch clonidine HCl 0.1 mg tablet 0.1 mg PO QAM 11/14/20 11/14/20 losartan 100 mg tablet 100 mg PO QAM 11/14/20 11/14/20 Previous Rx's Medication Instructions Recorded pantoprazole 40 mg tablet,delayed 40 mg PO BID #60 tab 03/20/20 release Results & Data (ED) Vital Signs Vital Signs - 24 hr 11/14/20 17:25 11/14/20 18:46 11/14/20 18:47 Temperature 37.6 C H Temperature Source Temporal Artery Scan Pulse Rate 106 H 106 H Pulse Rate from SpO2 Sensor Respiratory Rate 20 20 20 Respiratory Effort / Characteristics Non-Labored Non-Labored Respiratory Depth Normal Blood Pressure 221/114 H Blood Pressure Mean 149 Pulse Oximetry 96 96 96 Oxygen Delivery Method Room Air Room Air Room Air Sepsis Recent Fever Within 48 Hours No Sepsis New/Unexplained Change in Mental Status N/A Sepsis Action Taken by Nursing No Action Required 11/14/20 18:59 11/14/20 19:40 11/14/20 20:00 Temperature Temperature Source Pulse Rate 86 87 81 Pulse Rate from SpO2 Sensor 83 Respiratory Rate 17 14 18 Respiratory Effort / Characteristics Respiratory Depth Blood Pressure 200/125 H 244/141 H 213/133 H Blood Pressure Mean 150 175 159 Pulse Oximetry 96 95 Oxygen Delivery Method Room Air Sepsis Recent Fever Within 48 Hours Sepsis New/Unexplained Change in Mental Status Sepsis Action Taken by Nursing 11/14/20 20:30 11/14/20 21:00 11/14/20 21:13 Temperature Temperature Source Pulse Rate 82 86 92 H Pulse Rate from SpO2 Sensor Respiratory Rate 18 18 20 Respiratory Effort / Characteristics Respiratory Depth Blood Pressure 209/119 H 211/129 H 210/131 H Blood Pressure Mean 149 156 157 Pulse Oximetry 96 97 97 Oxygen Delivery Method Sepsis Recent Fever Within 48 Hours Sepsis New/Unexplained Change in Mental Status Sepsis Action Taken by Nursing 11/14/20 21:30 Temperature Temperature Source Pulse Rate 86 Pulse Rate from SpO2 Sensor Respiratory Rate 22 Respiratory Effort / Characteristics Respiratory Depth Blood Pressure 202/129 H Blood Pressure Mean 153 Pulse Oximetry 98 Oxygen Delivery Method Sepsis Recent Fever Within 48 Hours Sepsis New/Unexplained Change in Mental Status Sepsis Action Taken by Jail Medications Current Medication List: was personally reviewed by me Laboratory Data Attestation: I reviewed the patient's lab results. Result diagrams: 11/14/20 18:38 11/14/20 18:38 Lab Results 11/14/20 11/14/20 11/14/20 Range/Units 18:38 18:38 18:38 WBC 7.25 (4.8-10.8) K/uL RBC 3.55 L (4.7-6.1) M/uL Hgb 10.8 L (14.0-18.0) g/dL Hct 32.6 L (42-52) % MCV 91.8 (80-100) fL MCH 30.4 (25-34) pg MCHC 33.1 (32-36) g/dL RDW Std Deviation 51.5 H (36.4-46.3) fL RDW Coeff of Adam 15.2 H (11.5-14.5) % Plt Count 186 (130-400) K/uL MPV 9.7 (7.4-10.4) fL Immature Gran % (Auto) 0.3 % Neut % (Auto) 68.0 % Lymph % (Auto) 16.0 % Geary % (Auto) 6.2 % Eos % (Auto) 9.2 % Baso % (Auto) 0.3 % Neut # (Auto) 4.93 (1.4-6.5) K/uL Lymph # (Auto) 1.16 L (1.2-3.4) K/uL Geary # (Auto) 0.45 (0.11-0.59) K/uL Eos # (Auto) 0.67 H (0-0.5) K/uL Baso # (Auto) 0.02 (0-0.2) K/uL Immature Gran # (Auto) 0.02 (0.00-0.02) K/uL PT Cancelled INR Cancelled APTT Cancelled PTT Ratio Cancelled Sodium 134 L (136-145) mmol/L Potassium 5.2 H (3.5-5.1) mmol/L Chloride 96 L (98-107) mmol/L Carbon Dioxide 30 (21-32) mmol/L Anion Gap 8.0 (3-11) BUN 41 H (7-18) mg/dl Creatinine 13.70 H* (0.6-1.4) mg/dl Est Cr Clr Drug Dosing 7.3 ml/min Est GFR ( Amer) 4.4 ml/min Est GFR (Non-Af Amer) 3.8 ml/min BUN/Creatinine Ratio 3.0 L (10-20) Glucose 120 H (70-99) mg/dl Lactate (0.4-2.0) mmol/L Calcium 9.3 (8.5-10.1) mg/dl Magnesium 2.4 (1.8-2.4) mg/dl Total Bilirubin 0.4 (0.2-1) mg/dl AST 13 L (15-37) U/L ALT 8 L (12-78) U/L Alkaline Phosphatase 64 (45-117) U/L Troponin I < 0.015 (0-0.045) ng/ml Total Protein 7.9 (6.4-8.2) gm/dl Albumin 3.2 L (3.4-5.0) gm/dl Globulin 4.7 H (2.5-4.0) gm/dl Albumin/Globulin Ratio 0.7 L (0.9-2) Procalcitonin (0-0.5) ng/ml COVID-19 Eval Order SARS-CoV-2 (PCR) (Negative) 11/14/20 11/14/20 11/14/20 Range/Units 18:38 18:38 18:47 WBC (4.8-10.8) K/uL RBC (4.7-6.1) M/uL Hgb (14.0-18.0) g/dL Hct (42-52) % MCV (80-100) fL MCH (25-34) pg MCHC (32-36) g/dL RDW Std Deviation (36.4-46.3) fL RDW Coeff of Adam (11.5-14.5) % Plt Count (130-400) K/uL MPV (7.4-10.4) fL Immature Gran % (Auto) % Neut % (Auto) % Lymph % (Auto) % Geary % (Auto) % Eos % (Auto) % Baso % (Auto) % Neut # (Auto) (1.4-6.5) K/uL Lymph # (Auto) (1.2-3.4) K/uL Geary # (Auto) (0.11-0.59) K/uL Eos # (Auto) (0-0.5) K/uL Baso # (Auto) (0-0.2) K/uL Immature Gran # (Auto) (0.00-0.02) K/uL PT INR APTT PTT Ratio Sodium (136-145) mmol/L Potassium (3.5-5.1) mmol/L Chloride (98-107) mmol/L Carbon Dioxide (21-32) mmol/L Anion Gap (3-11) BUN (7-18) mg/dl Creatinine (0.6-1.4) mg/dl Est Cr Clr Drug Dosing ml/min Est GFR ( Amer) ml/min Est GFR (Non-Af Amer) ml/min BUN/Creatinine Ratio (10-20) Glucose (70-99) mg/dl Lactate 1.0 (0.4-2.0) mmol/L Calcium (8.5-10.1) mg/dl Magnesium (1.8-2.4) mg/dl Total Bilirubin (0.2-1) mg/dl AST (15-37) U/L ALT (12-78) U/L Alkaline Phosphatase (45-117) U/L Troponin I (0-0.045) ng/ml Total Protein (6.4-8.2) gm/dl Albumin (3.4-5.0) gm/dl Globulin (2.5-4.0) gm/dl Albumin/Globulin Ratio (0.9-2) Procalcitonin 0.42 (0-0.5) ng/ml COVID-19 Eval Order Covid[address] [facility] SARS-CoV-2 (PCR) (Negative) 11/14/20 11/14/20 Range/Units 18:47 19:54 WBC (4.8-10.8) K/uL RBC (4.7-6.1) M/uL Hgb (14.0-18.0) g/dL Hct (42-52) % MCV (80-100) fL MCH (25-34) pg MCHC (32-36) g/dL RDW Std Deviation (36.4-46.3) fL RDW Coeff of Adam (11.5-14.5) % Plt Count (130-400) K/uL MPV (7.4-10.4) fL Immature Gran % (Auto) % Neut % (Auto) % Lymph % (Auto) % Geary % (Auto) % Eos % (Auto) % Baso % (Auto) % Neut # (Auto) (1.4-6.5) K/uL Lymph # (Auto) (1.2-3.4) K/uL Geary # (Auto) (0.11-0.59) K/uL Eos # (Auto) (0-0.5) K/uL Baso # (Auto) (0-0.2) K/uL Immature Gran # (Auto) (0.00-0.02) K/uL PT 10.9 INR 1.1 APTT 33.0 H PTT Ratio 1.3 Sodium (136-145) mmol/L Potassium (3.5-5.1) mmol/L Chloride (98-107) mmol/L Carbon Dioxide (21-32) mmol/L Anion Gap (3-11) BUN (7-18) mg/dl Creatinine (0.6-1.4) mg/dl Est Cr Clr Drug Dosing ml/min Est GFR ( Amer) ml/min Est GFR (Non-Af Amer) ml/min BUN/Creatinine Ratio (10-20) Glucose (70-99) mg/dl Lactate (0.4-2.0) mmol/L Calcium (8.5-10.1) mg/dl Magnesium (1.8-2.4) mg/dl Total Bilirubin (0.2-1) mg/dl AST (15-37) U/L ALT (12-78) U/L Alkaline Phosphatase (45-117) U/L Troponin I (0-0.045) ng/ml Total Protein (6.4-8.2) gm/dl Albumin (3.4-5.0) gm/dl Globulin (2.5-4.0) gm/dl Albumin/Globulin Ratio (0.9-2) Procalcitonin (0-0.5) ng/ml COVID-19 Eval Order SARS-CoV-2 (PCR) NEGATIVE (Negative) Administered Medications Vancomycin HCl 1,500 mg/ (Sodium Chloride) 530 mls @ 200 mls/hr IV NOW ONE Stop: 11/15/20 02:53 Last Admin: 11/15/20 00:32 Dose: 200 mls/hr Documented by: [id number] Discontinued Medications Acetaminophen (Acetaminophen 325 Mg Tab) 650 mg PO NOW STA Stop: 11/14/20 18:41 Last Admin: 11/14/20 18:52 Dose: 650 mg Documented by: [id number] Clonidine HCl (Clonidine Hcl 0.1 Mg Tab) 0.1 mg PO NOW ONE Stop: 11/14/20 23:17 Last Admin: 11/15/20 00:34 Dose: 0.1 mg Documented by: [id number] Hydralazine HCl (Hydralazine Hcl 20 Mg/Ml Vial) 10 mg IV NOW STA Stop: 11/14/20 20:58 Last Admin: 11/14/20 21:01 Dose: 10 mg Documented by: [id number] Piperacillin Sod/Tazobactam Sod (Zosyn) 4.5 gm in 120 mls @ 240 mls/hr IV NOW ONE Stop: 11/14/20 18:43 Last Infusion: 11/14/20 19:45 Dose: 0 mls/hr Documented by: [id number] Admin: 11/14/20 18:53 Dose: 240 mls/hr Documented by: [id number] Sodium Chloride (Nss 1000ml) 500 mls @ 999 mls/hr IV .Q31M ONE Stop: 11/14/20 19:10 Last Infusion: 11/14/20 19:45 Dose: 0 mls/hr Documented by: [id number] Admin: 11/14/20 18:53 Dose: 999 mls/hr Documented by: [id number] Imaging Data Radiologist's Impression: Chest X-Ray 11/14/20 18:14 XR chest 1V portable HISTORY: SEPSIS COMPARISON: Chest 03/15/2020. FINDINGS: The heart remains mildly enlarged. No focal lung consolidations to suggest pneumonia. No evidence for pulmonary edema. No pleural fusions. No pneumothorax. IMPRESSION: Stable mild cardiomegaly. ACT 112: Negative or not required by law. Electronically signed by: Dev Sosa M.D. 11/14/2020 6:55 PM Abdomen/Pelvis CT 11/14/20 18:[address] WITHOUT CONTRAST CT DOSE: 344.16 mGy.cm HISTORY: recent peritoneal dialysis cath placed, left-sided abdominal pain, L flank pain TECHNIQUE: Multiaxial CT images of the abdomen and pelvis were performed without contrast. A dose lowering technique was utilized adhering to the principles of ALARA. COMPARISON STUDY: Abdomen and pelvis CT 03/15/2020. FINDINGS: Trace bilateral pleural effusions. Bilateral gynecomastia. The heart is mildly enlarged. There is a trace pericardial effusion. This has improved in the interval. Trace extraperitoneal gas within the epigastric region. This is likely due to the interval placement of the left-sided peritoneal dialysis catheter. This is looped and terminates within the right lower quadrant. No fractures within the visualized osseous structures. The unenhanced liver, s pleen, adrenal glands, pancreas, gallbladder are unremarkable. Atrophic [place] kidneys are again noted. A few mildly enlarged retroperitoneal lymph nodes have decreased in size in the interval. Moderate bladder wall thickening which is decompressed. There is appears to be a small left rectus sheath hematoma. This measures approximately 1.4 cm in thickness. No change in the right renal transplant kidney. Left lower quadrant renal transplant hydronephrosis is stable to improved. The perirenal fat stranding has also improved. Suboptimal evaluation for bowel pathology due to the lack of intravenous and oral contrast. However, there is no definite bowel wall thickening or obstruction. Trace pelvic free fluid. Moderate stool within the proximal colon. IMPRESSION: 1. Interval placement of a left-sided peritoneal dialysis catheter. The tip is located within the right lower quadrant. 2. Small amount of extraperitoneal gas within the upper abdominal location. This is likely due to the interval placement of the peritoneal dialysis catheter. 3. Small left rectus sheath hematoma measuring up to 1.4 cm in thickness. This may also be due to the recent postoperative change. 4. Bladder wall thickening. This remains unchanged and is likely chronic. 5. Slight improvement in the left lower quadrant renal transplant hydronephrosis and perinephric fat stranding. 6. No bowel wall thickening or obstruction. 7. Trace right pleural effusion. A. Mild retroperitoneal lymphadenopathy. This has also improved. ACT 112: Negative or not required by law. Electronically signed by: Dev Sosa M.D. 11/14/2020 8:26 PM Discharge Plan Visit Data Chief Complaint: Fever Stated Complaint: PAIN, FEVER ED Provider: Juancarlos Frausto Discharge Problem: Pyelonephritis of left kidney, ESRD (end stage renal disease), Anemia, Acute hyperkalemia, Peritoneal dialysis catheter in place Patient Disposition: Admitted As Inpatient Discharge Instructions Interventions: ED Discharge Assessment Last Done: 11/14/20 23:00
[2020-11-14] MEDS ORDERED: PIPERACILLIN/TAZOBACTAM 4.5 GM/120 ML BAG IV ONE (18:14)
[2020-11-14] MEDS ORDERED: PIPERACILL/TAZOBAC CONSULT ACTIVE PRN (18:14)
[2020-11-14] MEDS ORDERED: ACETAMINOPHEN 325 MG TAB PO STA (18:40)
[2020-11-14] MEDS ORDERED: SODIUM CHLORIDE 0.9% 1000ML 500 ML IV ONE (18:40)
[2020-11-14 18:50] LABS: Basophils # (auto) 0.02 K/uL (0-0.2); Basophils % (auto) 0.3 %; Eosinophils # (auto) 0.67 K/uL (0-0.5); Eosinophils % (auto) 9.2 %; Hematocrit (blood only) 32.6 % (42-52); Hemoglobin 10.8 g/dL (14.0-18.0); Immature Granulocytes # (auto) 0.02 K/uL (0.00-0.02); Immature Granulocytes % (auto) 0.3 %; Lymphocytes # (auto) 1.16 K/uL (1.2-3.4); Mean Corpuscular Hemoglobin 30.4 pg (25-34); Mean Corpuscular Hgb Conc 33.1 g/dL (32-36); Mean Corpuscular Volume 91.8 fL (80-100); Mean Platelet Volume 9.7 fL (7.4-10.4); Monocytes # (auto) 0.45 K/uL (0.11-0.59); Monocytes % (auto) 6.2 %; Neutrophils # (auto) 4.93 K/uL (1.4-6.5); Platelet Count 186 K/uL (130-400); RDW Coefficient of Variation 15.2 % (11.5-14.5); RDW Standard Deviation 51.5 fL (36.4-46.3); Red Blood Count 3.55 M/uL (4.7-6.1); White Blood Count 7.25 K/uL (4.8-10.8)
--- NOTE | 2020-11-14 18:56 | XRay Report ---
XR chest 1V portable HISTORY: SEPSIS COMPARISON: Chest 03/15/2020. FINDINGS: The heart remains mildly enlarged. No focal lung consolidations to suggest pneumonia. No ev idence for pulmonary edema. No pleural fusions. No pneumothorax. IMPRESSION: Stable mild cardiomegaly. ACT 112: Negative or not required by law. Electronically signed by: Dev Sosa M.D. 11/14/2020 6:55 PM
[2020-11-14 19:24] LABS: Alanine Aminotransferase 8 U/L (12-78); Albumin Globulin Ratio 0.7 (0.9-2); Albumin Level 3.2 gm/dl (3.4-5.0); Alkaline Phosphatase 64 U/L (45-117); Aspartate Aminotransferase 13 U/L (15-37); Bilirubin,Total 0.4 mg/dl (0.2-1); Blood Urea Nitrogen 41 mg/dl (7-18); Calcium 9.3 mg/dl (8.5-10.1); Carbon Dioxide 30 mmol/L (21-32); Chloride 96 mmol/L (98-107); Creatinine Clr Calc Pharmacy 7.3 ml/min; Est GFR (African American) 4.4 ml/min; Est GFR (Non-African American) 3.8 ml/min; Globulin 4.7 gm/dl (2.5-4.0); Glucose 120 mg/dl (70-99); Magnesium 2.4 mg/dl (1.8-2.4); Potassium 5.2 mmol/L (3.5-5.1); Sodium 134 mmol/L (136-145); Total Protein 7.9 gm/dl (6.4-8.2); Troponin I < 0.015 ng/ml (0-0.045)
[2020-11-14 20:15] LABS: INR 1.1 (0.9-1.1); Partial Thromboplastin Ratio 1.3; Prothrombin Time 10.9 Seconds (9.0-12.0)
--- NOTE | 2020-11-14 20:27 | CT Scan Report ---
ABDOMEN AND PELVIS CT WITHOUT CONTRAST CT DOSE: 344.16 mGy.cm HISTORY: recent peritoneal dialysis cath placed, left-sided abdominal pain, L flank pain TECHNIQUE: Multiaxial CT images of the abdomen and pelvis were performed without contrast. A dose lo wering technique was utilized adhering to the principles of ALARA. COMPARISON STUDY: Abdomen and pelvis CT 03/15/2020. FINDINGS: Trace bilateral pleural effusions. Bilateral gynecomastia. The heart is mildly enlarged. Th ere is a trace pericardial effusion. This has improved in the interval. Trace extraperitoneal gas wit hin the epigastric region. This is likely due to the interval placement of the left-sided peritoneal dialysis catheter. This is looped and terminates within the right lower quadrant. No fractures within the visualized osseous structures. The unenhanced liver, spleen, adrenal glands, pancreas, gallbladd er are unremarkable. Atrophic [place] kidneys are again noted. A few mildly enlarged retroperitoneal l ymph nodes have decreased in size in the interval. Moderate bladder wall thickening which is decompre ssed. There is appears to be a small left rectus sheath hematoma. This measures approximately 1.4 cm in thickness. No change in the right renal transplant kidney. Left lower quadrant renal transplant hy dronephrosis is stable to improved. The perirenal fat stranding has also improved. Suboptimal evaluat ion for bowel pathology due to the lack of intravenous and oral contrast. However, there is no defini te bowel wall thickening or obstruction. Trace pelvic free fluid. Moderate stool within the proximal colon. IMPRESSION: 1. Interval placement of a left-sided peritoneal dialysis catheter. The tip is located within the rig ht lower quadrant. 2. Small amount of extraperitoneal gas within the upper abdominal location. This is likely due to the interval placement of the peritoneal dialysis catheter. 3. Small left rectus sheath hematoma measuring up to 1.4 cm in thickness. This may also be due to the recent postoperative change. 4. Bladder wall thickening. This remains unchanged and is likely chronic. 5. Slight improvement in the left lower quadrant renal transplant hydronephrosis and perinephric fat stranding. 6. No bowel wall thickening or obstruction. 7. Trace right pleural effusion. A. Mild retroperitoneal lymphadenopathy. This has also improved. ACT 112: Negative or not required by law. Electronically signed by: Dev Sosa M.D. 11/14/2020 8:26 PM
[2020-11-14] MEDS ORDERED: hydrALAZINE HCL 20 MG/ML VIAL IV STA (20:57)
--- NOTE | 2020-11-14 21:37 | History & Physical Report ---
Date of Service November 14, 2020 Assessment & Plan (1) Pyelonephritis of left kidney: Plan: 45 yo M w/ pMHx. of IgA vasculitis, ESRD on dialysis MWF, presents with left flank pain and new onset of fever prior to admission concerning for pyelonephritis vs. peritonitis given recent peritoneal dialysis catheter placement although reassuring exam and labs CT A/P showing post operative changes from the interval dialysis catheter placement and improvement in perinephric fat stranding and hydronephrosis EKG: NSR COVID negative, CXR with stable mild cardiomegaly, nl. WBC, nl. Lactate, nl. procalitonin, nl. troponin K 5.2 - consulted Nephrology for dialysis - covering for pyelonephritis with Zosyn - MRSA coverage given recent procedure with Vancomycin - blood cultures obtained - continue to follow BMP and CBC HTN as high as 213/133 - given additional one time dose of clonidine - continue home clonidine patch & oral - continue Losartan - continue Amlodipine Anemia, normocytic - potentially 2/2 chronic disease HGB 10.8 - improved from prior - continue to follow Code: full Diet: renal dialysis diet DVT: SCD's (2) Anemia: (3) ESRD (end stage renal disease): History of Present Illness Chief Complaint: fever, abdominal pain Primary Care Provider: Robinson Dean Capp, Suraj Lazcano is a 44-year-old male with a past medical history of IgA vasculitis with 2 prior failed renal transplants (most recent 2016 at [facility]) currently with ESRD on dialysis (MWF - last dialysis - Sunday), chronic anemia, and intermittent constipation who presents to the emergency department with one day of fever to 102F. He also reports sharp left sided back and side pain. The quality of the pain is, "like being punched", 10/10 in severity and progressively worsening since it started yesterday morning. He notes worsening with movement, deep breathing or coughing. He states that this feels like when he was admitted previously for a kidney infection. He had a peritoneal dialysis catheter placed on Sunday (11/09) in [place]. His Sports Medicine Coordinator is Dr. Kaur and PCP is Dr. Rasmussen. ER course: Tylenol, Hydralazine, IVF, blood cultures, Zosyn Allergies Allergy/AdvReac Type Severity Reaction Status Date / Time Bactrim Allergy Mild Rash Verified 09/19/17 00:57 sulfamethoxazole Allergy Mild Rash Verified 11/14/20 18:23 trimethoprim Allergy Mild Rash Verified 11/14/20 18:23 Home Medications Medication Instructions Recorded Confirmed Type pantoprazole 40 mg tablet,delayed 40 mg PO BID #60 tab 03/20/20 11/14/20 Rx release amlodipine 10 mg tablet 10 mg PO PM 11/14/20 11/14/20 History calcitriol 0.25 mcg capsule 0.25 mcg PO QAM 11/14/20 11/14/20 History clonidine 0.1 mg/24 hr weekly 1 patch TRANSDERMAL WK 11/14/20 11/14/20 History transdermal patch clonidine HCl 0.1 mg tablet 0.1 mg PO QAM 11/14/20 11/14/20 History losartan 100 mg tablet 100 mg PO QAM 11/14/20 11/14/20 History Past Med/Surg History Medical History Anemia COVID-19 ESRD (end stage renal disease) GI bleed History of kidney transplant Peritoneal dialysis catheter in place Sepsis UTI (urinary tract infection) Surgical History Status post removal of arteriovenous fistula Family History Denies family history of Kidney disease Social History Smoking Status: Never smoker Second Hand Exposure: No; Do You Dip or Chew Tobacco: No; Tobacco Cessation Education Requested by Patient: No Hx Alcohol Use: No Hx Substance Use: No Preferred Language: Upper Sorbian Communication Ability: Effective Marine 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 indep. 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 Other Information That Helps Us Care for You: No Feels Safe at Home: Yes Safety Concerns: Feels Safe At This Time Assistive Devices: None Review of Systems Review of Systems: Constitutional: denies nausea, vomiting, diaphoresis, lightheadedness, vision changes admits fevers, chills, fatigue, general weakness Head: denies trauma, LOC, confusion, lightheadedness, vision changes Neurologic: denies slurring of speech, focal weakness, decreased sensation, numbness or tingling ENT: denies rhinorrhea, stuffiness, sneezing, sore throat Cardiac: denies chest pain, palpitations, leg edema Pulm.: denies cough, shortness of breath, hemoptysis, sputum production GI: denies diarrhea, admits constipation (LBM 2 days prior), abdominal pain : admits aneuric Physical Exam Constitutional: WD/WN, vitals as above Eyes: PERRL, conjunctivae normal, anicteric sclerae ENMT: external ear and nose normal, oropharynx normal Neck: normal visual inspection Respiratory: normal respiratory effort, lungs clear to auscultation Cardiovascular: Rate/Rhythm: regular rate Heart Sounds: no murmur Extremities: no edema Gastrointestinal (Abdomen): - decreased bowel sounds - soft abdomen without guarding - tender to palpation diffusely to light and deep palpation - peritoneal dialysis catheter in the left side, no erythema, drainage, appears clean, dry, intact - + CVA tenderness on the right - on the left Skin: no rashes, warm and dry Psychiatric: Orientation: alert and oriented x 3 Results & Data Results & Data ([facility]) Vital Signs (Past 12 Hours) Vital Signs Temp Pulse Resp BP Pulse Ox 11/14/20 21:30 86 22 202/129 H 98 11/14/20 21:13 92 H 20 210/131 H 97 11/14/20 21:00 86 18 211/129 H 97 11/14/20 20:30 82 18 209/119 H 96 11/14/20 20:00 81 18 213/133 H 95 11/14/20 19:40 87 14 244/141 H 11/14/20 18:59 86 17 200/125 H 96 11/14/20 18:47 20 96 11/14/20 18:46 106 H 20 96 11/14/20 17:25 37.6 C H 106 H 20 221/114 H 96 Laboratory Results Laboratory Results WBC 7.25 K/uL (4.8-10.8) 11/14/20 18:38 RBC 3.55 M/uL (4.7-6.1) L 11/14/20 18:38 Hgb 10.8 g/dL (14.0-18.0) L 11/14/20 18:38 Hct 32.6 % (42-52) L 11/14/20 18:38 MCV 91.8 fL (80-100) 11/14/20 18:38 MCH 30.4 pg (25-34) 11/14/20 18:38 MCHC 33.1 g/dL (32-36) 11/14/20 18:38 RDW Std Deviation 51.5 fL (36.4-46.3) H 11/14/20 18:38 RDW Coeff of Adam 15.2 % (11.5-14.5) H 11/14/20 18:38 Plt Count 186 K/uL (130-400) 11/14/20 18:38 MPV 9.7 fL (7.4-10.4) 11/14/20 18:38 Immature Gran % (Auto) 0.3 % 11/14/20 18:38 Neut % (Auto) 68.0 % 11/14/20 18:38 Lymph % (Auto) 16.0 % 11/14/20 18:38 Bucks % (Auto) 6.2 % 11/14/20 18:38 Eos % (Auto) 9.2 % 11/14/20 18:38 Baso % (Auto) 0.3 % 11/14/20 18:38 Neut # (Auto) 4.93 K/uL (1.4-6.5) 11/14/20 18:38 Lymph # (Auto) 1.16 K/uL (1.2-3.4) L 11/14/20 18:38 Bucks # (Auto) 0.45 K/uL (0.11-0.59) 11/14/20 18:38 Eos # (Auto) 0.67 K/uL (0-0.5) H 11/14/20 18:38 Baso # (Auto) 0.02 K/uL (0-0.2) 11/14/20 18:38 Immature Gran # (Auto) 0.02 K/uL (0.00-0.02) 11/14/20 18:38 PT 10.9 Seconds (9.0-12.0) 11/14/20 19:54 INR 1.1 (0.9-1.1) 11/14/20 19:54 APTT 33.0 Seconds (21.0-31.0) H 11/14/20 19:54 PTT Ratio 1.3 11/14/20 19:54 Sodium 134 mmol/L (136-145) L 11/14/20 18:38 Potassium 5.2 mmol/L (3.5-5.1) H 11/14/20 18:38 Chloride 96 mmol/L (98-107) L 11/14/20 18:38 Carbon Dioxide 30 mmol/L (21-32) 11/14/20 18:38 Anion Gap 8.0 (3-11) 11/14/20 18:38 BUN 41 mg/dl (7-18) H 11/14/20 18:38 Creatinine 13.70 mg/dl (0.6-1.4) H* 11/14/20 18:38 Est Cr Clr Drug Dosing 7.3 ml/min 11/14/20 18:38 Est GFR ( Amer) 4.4 ml/min 11/14/20 18:38 Est GFR (Non-Af Amer) 3.8 ml/min 11/14/20 18:38 BUN/Creatinine Ratio 3.0 (10-20) L 11/14/20 18:38 Glucose 120 mg/dl (70-99) H 11/14/20 18:38 Lactate 1.0 mmol/L (0.4-2.0) 11/14/20 18:38 Calcium 9.3 mg/dl (8.5-10.1) 11/14/20 18:38 Magnesium 2.4 mg/dl (1.8-2.4) 11/14/20 18:38 Total Bilirubin 0.4 mg/dl (0.2-1) 11/14/20 18:38 AST 13 U/L (15-37) L 11/14/20 18:38 ALT 8 U/L (12-78) L 11/14/20 18:38 Alkaline Phosphatase 64 U/L (45-117) 11/14/20 18:38 Troponin I < 0.015 ng/ml (0-0.045) 11/14/20 18:38 Total Protein 7.9 gm/dl (6.4-8.2) 11/14/20 18:38 Albumin 3.2 gm/dl (3.4-5.0) L 11/14/20 18:38 Globulin 4.7 gm/dl (2.5-4.0) H 11/14/20 18:38 Albumin/Globulin Ratio 0.7 (0.9-2) L 11/14/20 18:38 Procalcitonin 0.42 ng/ml (0-0.5) 11/14/20 18:38 COVID-19 Eval Order Covid19 at [facility] 11/14/20 18:47 SARS-CoV-2 (PCR) NEGATIVE (Negative) 11/14/20 18:47 Impressions Chest X-Ray 11/14/20 18:14 XR chest 1V portable HISTORY: SEPSIS COMPARISON: Chest 03/15/2020. FINDINGS: The heart remains mildly enlarged. No focal lung consolidations to suggest pneumonia. No evidence for pulmonary edema. No pleural fusions. No pneumothorax. IMPRESSION: Stable mild cardiomegaly. ACT 112: Negative or not required by law. Electronically signed by: Dev Sosa M.D. 11/14/2020 6:55 PM Abdomen/Pelvis CT 11/14/20 18:[address] WITHOUT CONTRAST CT DOSE: 344.16 mGy.cm HISTORY: recent peritoneal dialysis cath placed, left-sided abdominal pain, L flank pain TECHNIQUE: Multiaxial CT images of the abdomen and pelvis were performed without contrast. A dose lowering technique was utilized adhering to the principles of ALARA. COMPARISON STUDY: Abdomen and pelvis CT 03/15/2020. FINDINGS: Trace bilateral pleural effusions. Bilateral gynecomastia. The heart is mildly enlarged. There is a trace pericardial effusion. This has improved in the interval. Trace extraperitoneal gas within the epigastric region. This is likely due to the interval placement of the left-sided peritoneal dialysis catheter. This is looped and terminates within the right lower quadrant. No fractures within the visualized osseous structures. The unenhanced liver, spleen, adrenal glands, pancreas, gallbladder are unremarkable. Atrophic [place] kidneys are again noted. A few mildly enlarged retroperitoneal lymph nodes have decreased in size in the interval. Moderate bladder wall thickening which is decompressed. There is appears to be a small left rectus sheath hematoma. This measures approximately 1.4 cm in thickness. No change in the right renal transplant kidney. Left lower quadrant renal transplant hydronephrosis is stable to improved. The perirenal fat stranding has also improved. Suboptimal evaluation for bowel pathology due to the lack of intravenous and oral contrast. However, there is no definite bowel wall thickening or obstruction. Trace pelvic free fluid. Moderate stool within the proximal colon. IMPRESSION: 1. Interval placement of a left-sided peritoneal dialysis catheter. The tip is located within the right lower quadrant. 2. Small amount of extraperitoneal gas within the upper abdominal location. This is likely due to the interval placement of the peritoneal dialysis catheter. 3. Small left rectus sheath hematoma measuring up to 1.4 cm in thickness. This may also be due to the recent postoperative change. 4. Bladder wall thickening. This remains unchanged and is likely chronic. 5. Slight improvement in the left lower quadrant renal transplant hydronephrosis and perinephric fat stranding. 6. No bowel wall thickening or obstruction. 7. Trace right pleural effusion. A. Mild retroperitoneal lymphadenopathy. This has also improved. ACT 112: Negative or not required by law. Electronically signed by: Dev Sosa M.D. 11/14/2020 8:26 PM CBC Results Results Complete Blood Count Results: RBC 3.55 M/uL (4.7-6.1) L 11/14/20 WBC 7.25 K/uL (4.8-10.8) 11/14/20 Hgb 10.8 g/dL (14.0-18.0) L 11/14/20 Hct 32.6 % (42-52) L 11/14/20 Plt Count 186 K/uL (130-400) 11/14/20 Chemistry (BMP) Results BMP Results: Sodium 134 mmol/L (136-145) L 11/14/20 Potassium 5.2 mmol/L (3.5-5.1) H 11/14/20 Chloride 96 mmol/L (98-107) L 11/14/20 BUN 41 mg/dl (7-18) H 11/14/20 Creatinine 13.70 mg/dl (0.6-1.4) H* 11/14/20 Glucose 120 mg/dl (70-99) H 11/14/20 Code Status & VTE Plan VTE Prophylaxis Plan VTE Prophylaxis will be ordered: Yes Supervising Physician Co-Signing Physician Notes Patient seen and examined, chart reviewed, case discussed with Dr. Koch's and I agree with his assessment and plan as documented above. Briefly, patient is a 45-year-old male with history of IgA vasculitis status post 2 failed renal transplants. Patient has been on hemodialysis q. Sunday/Sunday/Sunday for the last year. He recently had a peritoneal dialysis catheter placed in [place]. He presents with fever, back pain, left flank pain. On physical exam patient is awake alert and oriented, resting comfortably in bed, no acute distress Skinwarm, dry, intact, no rashes or lesions HEENTnormocephalic/atraumatic, pupils equal and reactive to light, neck supple, no JVD Heart+ S1, S2, regular, no murmur/rubs/gallops Lungsequal air entry bilaterally, no rales/rhonchi/wheezes Abdomensoft, diffusely tender with no rebound/guarding or peritoneal signs. Discomfort worse in left abdomen and flank. Peritoneal dialysis catheter in place with some scabbing around entry site, no erythema or drainage Extremitieswarm, well-perfused, trace edema. Left upper extremity AV fistula with palpable thrill Neurogrossly intact Labs and images reviewed. Significant for stable normochromic/normocytic anemia with Hgb = 10.8, HCT = 32.6. Electrolyte derangement to include sodium = 134, K = 5.2, chloride = 96. Elevated BUN of 41 and creatinine of 13.7 in end-stage renal patient Procalcitonin = 0.42 Covid = negative Assessment/plan 45-year-old male with history of IgA vasculitis status post 2 failed renal transplants, on hemodialysis q. Sunday with recent peritoneal dialysis catheter placement presenting with fever, back pain, left flank pain. Findings concerning for acute pyelonephritis versus developing peritonitis from recent catheter placement We will follow cultures Empiric antibiotic coverage with vancomycin and Zosyn Pain control with Dilaudid as needed Nephrology consultation appreciated Patient with poorly controlled blood pressure, over 200 systolic in the ER. Upon review of his records he has frequent elevated blood pressure readings. He reports compliance with his home medications. No symptoms at present of endorgan dysfunction secondary to elevated blood pressure. We will continue losartan, clonidine, amlodipine. Will administer an extra dose of clonidine. Patient administered IV hydralazine in the ER x1 dose with minimal improvement Remainder of plan as above Resident Activity Tracking Resident Involvement: Resident Care Provided Care Provided: Adult [facility]
[2020-11-14] MEDS ORDERED: VANCOMYCIN CONSULT ACTIVE PRN (23:16)
[2020-11-14] MEDS ORDERED: POLYETHYLENE (MIRALAX) 17 GM PACK PO PRN (23:16)
[2020-11-14] MEDS ORDERED: cloNIDine HCL 0.1 MG TAB PO ONE (23:16)
[2020-11-14] MEDS ORDERED: ACETAMINOPHEN 325 MG TAB PO PRN (23:16)
[2020-11-14] MEDS ORDERED: HYDROmorphone INJ 0.5 MG/0.5 ML SYR IV PRN (23:16)
[2020-11-15] MEDS ORDERED: VANCOMYCIN HCL 1,500 MG in SODIUM CHLORIDE 0.9% 500 ML IV ONE (00:15)
[2020-11-15] MEDS: PIPERACILLIN/TAZOBACTAM 3.375 GM in DEXTROSE 5% 100 ML IV SCH ×2 (02:09→13:33)
[2020-11-15 08:49] LABS: Basophils # (auto) 0.01 K/uL (0-0.2); Basophils % (auto) 0.1 %; Eosinophils # (auto) 0.76 K/uL (0-0.5); Eosinophils % (auto) 11.1 %; Hemoglobin 10.3 g/dL (14.0-18.0); Immature Granulocytes # (auto) 0.01 K/uL (0.00-0.02); Immature Granulocytes % (auto) 0.1 %; Lymphocytes # (auto) 0.87 K/uL (1.2-3.4); Lymphocytes % (auto) 12.7 %; Mean Corpuscular Hemoglobin 30.2 pg (25-34); Mean Corpuscular Hgb Conc 32.2 g/dL (32-36); Mean Corpuscular Volume 93.8 fL (80-100); Mean Platelet Volume 10.2 fL (7.4-10.4); Monocytes # (auto) 0.58 K/uL (0.11-0.59); Monocytes % (auto) 8.5 %; Neutrophils % (auto) 67.5 %; Platelet Count 190 K/uL (130-400); RDW Coefficient of Variation 15.2 % (11.5-14.5); RDW Standard Deviation 51.4 fL (36.4-46.3); Red Blood Count 3.41 M/uL (4.7-6.1); White Blood Count 6.83 K/uL (4.8-10.8)
[2020-11-15] MEDS ORDERED: CALCITRIOL 0.25 MCG CAPSULE PO SCH (09:00)
[2020-11-15] MEDS ORDERED: cloNIDine HCL 0.1 MG TAB PO SCH (09:00)
[2020-11-15] MEDS ORDERED: LOSARTAN POTASSIUM 50 MG TAB PO SCH (09:00)
[2020-11-15] MEDS ORDERED: PANTOprazole 40 MG TAB PO SCH (09:00)
[2020-11-15 09:27] LABS: Calcium 9.2 mg/dl (8.5-10.1); Creatinine Clr Calc Pharmacy 6.8 ml/min; Est GFR (Non-African American) 3.5 ml/min; Magnesium 2.6 mg/dl (1.8-2.4); Phosphorus 7.4 mg/dl (2.5-4.9); Potassium 5.8 mmol/L (3.5-5.1)
[2020-11-15] MEDS: CHECK CLONIDINE PATCH PLACEMENT SCH ×2 (09:32→16:06)
--- NOTE | 2020-11-15 09:40 | Hospitalist Progress Note ---
Date of Service November 15, 2020 Assessment & Plan (1) Pyelonephritis of left kidney: Plan: Suraj is a 45 yo M w/ pMHx. 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 Kaur, as well as recent LEFT nipple biopsy who presented with left flank pain and new onset of fever, concerning for pyelonephritis vs. peritonitis given recent peritoneal dialysis catheter placement although reassuring exam and labs. He is hemodynamically stable. Pyelonephritis * Clinically reporting several days of worsening flank pain, feeling fatigued, +fever * In setting of allograft transplants * Work-up as follows: - Tm 37.7 near arrival - CT-A/P demonstrating post-operative changes from PD catheter placement and "Slight improvement in the left lower quadrant renal transplant hydronephrosis and perinephric fat stranding." - No leukocytosis, procal (-), lactate (-) - BCX - NGTD - Low suspicion for catheter-related contribution to fever at this point given exam, labs * Continue Zosyn --> consider transitioning to ciprofloxacin and metronidazole * Discontinue Vancomycin * ESRD management, as below * Nephrology following Left Nipple Induration * Recently s/p biopsy of infraaleolar tissue mass (per patient) - was told it was fatty tissue (?lipoma) * Concern this may be account executive sales representative of underlying inflammatory changes (e.g., scar) vs. infection * Will attempt aspiration today Chronic, Refractory HTN -- BPs occasionally exceeding >220/110, asymptomatic * In setting of ESRD requiring PD t.i.w. * Continue home clonidine p.o. and transdermal * Continue losartan, amlodipine, carvedilol, and minoxidil * Hydralazine 10mg p.r.n. ESRD * Follows with Dr. Kaur in [facility] Nephrology as an outpatient * Recently s/p placement of a peritoneal dialysis catheter - MWF * Consult Neprhology given Dialysis -- appreciate insight and recommendations * Na 132, K 5.8. Monitor. Anticipate improvement after PD today. Normocytic Anemia -- likely secondary to ESRD/chronic disease * Hgb at 10.8. Stable. Follow. Dispo: MS/Tele Code: full Diet: renal dialysis diet DVT: SCD's (2) Anemia: (3) ESRD (end stage renal disease): Admission and Anticipated Discharge Date Admission Date: November 14, 2020 Subjective No acute events overnight. Patient seen at the bedside -- reports he slept well last night overall. Pain persists in L flank - comes and goes, worsens with movement. He does add that about a week ago, did have a lesion below his LEFT nipple removed that turned out to be "fat tissue." However, reports that over this past week, area has become hard and somewhat painful to the touch. Also has +formation of hard tissue beneath the skin. Review of Systems Review of Systems: As per HPI Physical Exam Physical Exam: General: Well appearing 45-year-old male who is lying back in his hospital bed, relaxed, upon my arrival. NAD. HEENT: NCAT. Eyes - Sclera are white, anicteric, and without injection. Mouth - MMM with no tonsillar edema or exudates. Cardiac: Normal rate and regular rhythm; S1 and S2 present with no murmurs, rubs, or gallops. Pulmonary: Good respiratory effort with symmetric expansion of the chest. No use of accessory muscles. Lungs were clear to auscultation bilaterally with no crackles or wheezes. Abdominal: Normoactive bowel sounds. PD catheter covered with a clean dressing, in place. Very mild distention. Very mildly TTP across abdomen. No rebound or guarding. No abnormalcy in percussion. +CVA tenderness on left side - mild- moderate in severity. Extremities: Upper and lower extremities are warm and well perfused. Radial and dorsalis pedis pulses were 2+ b/l. No peripheral edema. Derm: There is a very mildly erythematous patch just superior to the left nipple, with underlying induration extending beneath the incision to ~2cm below the nipple. Hard to the touch, mildly TTP Psych: Well-developed, well-nourished, appropriately dressed for occasion. Behavior is cooperative and appropriate. Affect is WNL. Insight is appropriate. Results & Data Results & Data ([facility]) Vital Signs (Past 12 Hours) Vital Signs Temp Pulse Pulse Resp BP BP Pulse Ox 11/15/20 07:10 36.8 C 78 16 95 11/15/20 03:59 37.0 C 88 19 97 11/14/20 23:27 90 11/14/20 23:16 36.8 C 93 H 18 0/0 L 97 11/14/20 22:30 89 15 202/132 H 98 11/14/20 22:00 93 H 24 204/127 H 98 Resident Activity Tracking Resident Involvement: Resident Care Provided Care Provided: Adult Hospital Medicine (1) Anemia Anemia type: due to chronic kidney disease Chronic kidney disease stage: on chronic dialysis Qualified Code(s): N18.6 - End stage renal disease; D63.1 - Anemia in chronic kidney disease; Z99.2 - Dependence on renal dialysis
--- NOTE | 2020-11-15 12:56 | Nephrology Consultation ---
Date of Consultation November 15, 2020 Assessment & Plan (1) ESRD (end stage renal disease): Orders for HD today entered into the EMR and reviewed with the dialysis nurse. Low potassium bath for hyperkalemia. UF goal 2-3 L. AVF has been functioning well. (2) Peritoneal dialysis catheter in place: PD catheter to be flushed and dressing change to be performed today. (3) Acute hyperkalemia: Low potassium diet. Low K bath with hemodialysis. (4) Pyelonephritis of left kidney: Vanco and Zosyn dosed for kidney dysfunction. Oligoanuric. Imaging reviewed. Will monitor response to therapy. Blood cultures pending. (5) Hypertension: Notable history of poorly controlled hypertension. Suraj denies symptoms. Home Rx amlodipine 10 mg, carvedilol 25 BID, losartan 100, and minoxidil 25 mg daily. Plan to continue home medications as Rx including restarting minoxidil. Anticipate some improvement with HD. History of Present Illness Reason for Consultation: ESRD Requesting Physician: Wyatt Linton DO Attending Physician: Wyatt Linton DO History of Present Illness Mr. Suraj Platt is a 45-year-old male that I know well from the outpatient clinic. I have followed Suraj in the clinic for several years for management of his kidney dysfunction. Suraj is maintained on IHD on a MWF schedule at [facility]. His outpatient Rx is 3.5 hrs on a 180 optiflux 450/800, 3 K. EDW has been 80.5 kg. Suraj underwent PD catheter placement on November [address] Noe in [place] with plans to transition to PD in the near future. He felt well post catheter placement. Surgery did involve notable lysis of adhesions from prior abdominal surgeries including a PD catheter in the past and 2 x kidney transplant. Dialysis has been without complications. Suraj presented to the ER with 2 days of left flank pain yesterday. ECT scan of the abdomen and pelvis demonstrates some progressive dilation of the allograft collecting system. chronic bladder thickening and some chronic dilation of the collecting system of the atrophic [place] kidneys. 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 It is unclear if he had a biopsy at the time of this diagnosis. He developed ESRD shortly after initial diagnosis requiring dialysis. Suraj was initially on PD but did not like to modality. He switched to in-center HD and eventually underwent a DDRT in 1994. This allograft function lasted approximately 20 years. He describes an uncomplicated transplant with immediate allograft function. Unfortunately, the kidney started to fail in 2013. This is around the time that he initially saw me in the nephrology clinic. 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 Suraj was on HD for 2 weeks prior to undergoing a living unrelated donor transplant in October of 2016. Medical history also includes gross intermittent hematuria as well as chronic cysitis and recurrent UTI. He followed with urology in the past. Suraj was diagnosed with hypertension in 1994 following his kidney transplant he has been maintained on atenolol since that time. Nifedipine was added and he has been a stable dose of these medications for several years with appropriate control of his blood pressure. Allergies Allergy/AdvReac Type Severity Reaction Status Date / Time Bactrim Allergy Mild Rash Verified 09/19/17 00:57 sulfamethoxazole Allergy Mild Rash Verified 11/14/20 18:23 trimethoprim Allergy Mild Rash Verified 11/14/20 18:23 Home Medications Medication Instructions Recorded Confirmed Type pantoprazole 40 mg tablet,delayed 40 mg PO BID #60 tab 03/20/20 11/14/20 Rx release amlodipine 10 mg tablet 10 mg PO PM 11/14/20 11/14/20 History calcitriol 0.25 mcg capsule 0.25 mcg PO QAM 11/14/20 11/14/20 History clonidine 0.1 mg/24 hr weekly 1 patch TRANSDERMAL WK 11/14/20 11/14/20 History transdermal patch clonidine HCl 0.1 mg tablet 0.1 mg PO QAM 11/14/20 11/14/20 History losartan 100 mg tablet 100 mg PO QAM 11/14/20 11/14/20 History Patient History Medical History Anemia COVID-19 GI bleed Sepsis UTI (urinary tract infection) Surgical History History of kidney transplant Renal transplant, status post Status post removal of arteriovenous fistula Family History Denies family history of Kidney disease Social History Smoking Status: Never smoker Second Hand Exposure: No; Do You Dip or Chew Tobacco: No; Tobacco Cessation Education Requested by Patient: No Hx Alcohol Use: No Hx Substance Use: No Preferred Language: Turkmen Communication Ability: Effective Medical Case Manager Required: No Beliefs That Will Affect Care: None Current Living Situation: Alone Current Living Situation Comment: at home alone. indep. 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 Other Information That Helps Us Care for You: No Feels Safe at Home: Yes Safety Concerns: Feels Safe At This Time Assistive Devices: None Review of Systems Review of Systems: All systems reviewed & are unremarkable except as noted in HPI & below Physical Exam Constitutional: well developed; no acute distress Eyes: no scleral abnormality and no corneal abnormality ENMT: Mouth: no oral mucosal abnormality and oral mucous membranes not dry Neck: normal visual inspection and trachea midline Respiratory: normal respiratory effort Auscultation: lungs clear to auscultation bilaterally Cardiovascular: Rate/Rhythm: regular rate Heart Sounds: normal S1 and normal S2 Extremities: + AV fistula; no edema Gastrointestinal (Abdomen): Inspection/Auscultation: abdomen not distended Percussion/Palpation: + abdomen tender and abdomen soft; no guarding and no ascites Musculoskeletal: Extremities: no cyanosis and no clubbing Skin: normal turgor; no lesions Neurologic: Motor/Sensory: no tremor and no asterixis Psychiatric: Orientation: alert and oriented x 3 Genitourinary: + CVA tenderness (L) Results & Data ([facility]) Vital Signs (Past 12 Hours) Vital Signs Temp Pulse Resp BP Pulse Ox 11/15/20 12:03 37.1 C 76 16 97 11/15/20 10:29 196/104 H 11/15/20 09:36 232/110 H 11/15/20 07:10 36.8 C 78 16 95 11/15/20 03:59 37.0 C 88 19 97 PG Care Time/CCT Total # of Minutes Spent Total Time Spent with Patient: Total time spent is greater than 50% in coordination of care (as documented) at patient's floor/unit and/or counseling patient: Coding Level of Care Code 44067 Inpt Consult Level 4 Diagnoses Peritoneal dialysis catheter in place Z99.2 ESRD (end stage renal disease) N18.6 Acute hyperkalemia E87.5 Pyelonephritis of left kidney N12 Hypertension I10
--- NOTE | 2020-11-15 13:05 | Pharmacy Report ---
Pharmacy Abx Dose Short Note - Date of Service November 15, 2020 - Assessment & Plan Assessment 45 year old M receiving Vancomycin for treatment of pyelonephritis of left kidney Day # 1 of antimicrobial therapy Chronic HD patient blodd cultures x2 pending Plan Vancomycin * a loading dose of 1500mg IV x 1 at 0032 today which equals 18mg/kg * A random level was drawn at 11am today and resulted as 20.3 * Patient has dialysis scheduled for today and a second random level will be drawn tomorrow AM to guide additional dosing. Pharmacy will continue to follow and will adjust dose/frequency as necessary. Thank you.
--- NOTE | 2020-11-15 15:26 | Electrocardiogram Report ---
Test Reason : Blood Pressure : / mmHG Vent. Rate : 083 BPM Atrial Rate : 083 BPM P-R Int : 154 ms QRS Dur : 082 ms QT Int : 344 ms P-R-T Axes : 055 016 026 degrees QTc Int : 404 ms Normal sinus rhythm Normal ECG When compared with ECG of 18-MAR-2020 05:22, Vent. rate has increased BY 28 BPM QT has shortened Confirmed by Isak Desai ([id number]) on 11/15/2020 3:26:25 PM Referred By: REFERRED SELF Confirmed By:Isak Desai
[2020-11-15] MEDS ORDERED: minoxidiL 2.5 MG TAB PO SCH (16:30)
[2020-11-15] MEDS ORDERED: CEFDINIR 300 MG CAP PO STA (16:54)
--- NOTE | 2020-11-15 17:09 | Discharge Summary ---
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 He also reports sharp left sided back and side pain. The quality of the pain is, "like being punched", 10/10 in severity and progressively worsening since it started yesterday morning. He notes worsening with movement, deep breathing or coughing. He states that this feels like when he was admitted previously for a kidney infection. He had a peritoneal dialysis catheter placed on Sunday (11/09) in [place]. His Clinical Quality Rn is Dr. Kaur and PCP is Dr. Rasmussen. ER course: Tylenol, Hydralazine, IVF, blood cultures, Zosyn Admission Exam Per Admitting Provider Constitutional: WD/WN, vitals as above Eyes: PERRL, conjunctivae normal, anicteric sclerae ENMT: external ear and nose normal, oropharynx normal Neck: normal visual inspection Respiratory: normal respiratory effort, lungs clear to auscultation Cardiovascular: Rate/Rhythm: regular rate Heart Sounds: no murmur Extremities: no edema Gastrointestinal (Abdomen): - decreased bowel sounds - soft abdomen without guarding - tender to palpation diffusely to light and deep palpation - peritoneal dialysis catheter in the left side, no erythema, drainage, appears clean, dry, intact - + CVA tenderness on the right - on the left Skin: no rashes, warm and dry Psychiatric: Orientation: alert and oriented x 3 Principal Diagnosis pyelonephritis htn esrd Discharge Exam General: Well appearing 45-year-old male who is lying back in his hospital bed, relaxed, upon my arrival. NAD. HEENT: NCAT. Eyes - Sclera are white, anicteric, and without injection. Mouth - MMM with no tonsillar edema or exudates. Cardiac: Normal rate and regular rhythm; S1 and S2 present with no murmurs, rubs, or gallops. Pulmonary: Good respiratory effort with symmetric expansion of the chest. No use of accessory muscles. Lungs were clear to auscultation bilaterally with no crackles or wheezes. Abdominal: Normoactive bowel sounds. PD catheter covered with a clean dressing, in place. Very mild distention. Very mildly TTP across abdomen. No rebound or guarding. No abnormalcy in percussion. +CVA tenderness on left side - mild- moderate in severity. Extremities: Upper and lower extremities are warm and well perfused. Radial and dorsalis pedis pulses were 2+ b/l. No peripheral edema. Derm: There is a very mildly erythematous patch just superior to the left nipp le, with underlying induration extending beneath the incision to ~2cm below the nipple. Hard to the touch, mildly TTP Psych: Well-developed, well-nourished, appropriately dressed for occasion. Behavior is cooperative and appropriate. Affect is WNL. Insight is appropriate. Discharge Data Allergies Allergy/AdvReac Type Severity Reaction Status Date / Time Bactrim Allergy Mild Rash Verified 09/19/17 00:57 sulfamethoxazole Allergy Mild Rash Verified 11/14/20 18:23 trimethoprim Allergy Mild Rash Verified 11/14/20 18:23 Consultations 11/14/20 20:57 ED Decision to Admit Stat 11/14/20 23:16 Consult Nephrology Routine Ordered Studies ABDOMEN AND PELVIS CT WITHOUT CONTRAST (11/15) CT DOSE: 344.16 mGy.cm HISTORY: recent peritoneal dialysis cath placed, left-sided abdominal pain, L flank pain TECHNIQUE: Multiaxial CT images of the abdomen and pelvis were performed without contrast. A dose lowering technique was utilized adhering to the principles of ALARA. COMPARISON STUDY: Abdomen and pelvis CT 03/15/2020. FINDINGS: Trace bilateral pleural effusions. Bilateral gynecomastia. The heart is mildly enlarged. There is a trace pericardial effusion. This has improved in the interval. Trace extraperitoneal gas within the epigastric region. This is likely due to the interval placement of the left-sided peritoneal dialysis catheter. This is looped and terminates within the right lower quadrant. No fractures within the visualized osseous structures. The unenhanced liver, spleen, adrenal glands, pancreas, gallbladder are unremarkable. Atrophic elem kidneys are again noted. A few mildly enlarged retroperitoneal lymph nodes have decreased in size in the interval. Moderate bladder wall thickening which is decompressed. There is appears to be a small left rectus sheath hematoma. This measures approximately 1.4 cm in thickness. No change in the right renal transplant kidney. Left lower quadrant renal transplant hydronephrosis is stable to improved. The perirenal fat stranding has also improved. Suboptimal evaluation for bowel pathology due to the lack of intravenous and oral contrast. However, there is no definite bowel wall thickening or obstruction. Trace pelvic free fluid. Moderate stool within the proximal colon. IMPRESSION: 1. Interval placement of a left-sided peritoneal dialysis catheter. The tip is located within the right lower quadrant. 2. Small amount of extraperitoneal gas within the upper abdominal location. This is likely due to the interval placement of the peritoneal dialysis catheter. 3. Small left rectus sheath hematoma measuring up to 1.4 cm in thickness. This may also be due to the recent postoperative change. 4. Bladder wall thickening. This remains unchanged and is likely chronic. 5. Slight improvement in the left lower quadrant renal transplant hydronephrosis and perinephric fat stranding. 6. No bowel wall thickening or obstruction. 7. Trace right pleural effusion. A. Mild retroperitoneal lymphadenopathy. This has also improved. Hospital Course (1) Pyelonephritis of left kidney: Suraj is a 45 yo M w/ pMHx. 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 Kaur, as well as recent LEFT nipple biopsy who presented with left flank pain and new onset of fever, concerning for pyelonephritis vs. peritonitis given recent peritoneal dialysis catheter placement although reassuring exam and labs. He is hemodynamically stable. Pyelonephritis * Clinically reporting several days of worsening flank pain, feeling fatigued, +fever * In setting of allograft transplants * Work-up as follows: - Tm 37.7 near arrival - CT-A/P demonstrating post-operative changes from PD catheter placement and "Slight improvement in the left lower quadrant renal transplant hydronephrosis and perinephric fat stranding." - No leukocytosis, procal (-), lactate (-) - BCX - NGTD - Low suspicion for catheter-related contribution to fever at this point given exam, labs * Zosyn/Vanc --> cefdinir 300mg qod (after dialysis given renal clearance) on discharge (total of 10 days) * ESRD management, as below * Nephrology following Left Nipple Induration -- likely infectious component * Recently s/p biopsy of infraaleolar tissue mass (per patient) - was told it was fatty tissue (?lipoma) * Concern this may be customer response representative of underlying inflammatory changes (e.g., scar) vs. infection * Given this has been ongoing for a month -- OK for cefdinir, which should give good coverage, as above -- Reassess as outpatient. Consider aspiration and culture vs. ultrasonography -- If unimproved and persistence of concern for infection continues, would add MRSA coverage * Will attempt aspiration today Chronic, Refractory HTN -- BPs occasionally exceeding >220/110, asymptomatic * In setting of ESRD requiring PD t.i.w. * Continue home clonidine p.o. and transdermal * Continue losartan, amlodipine, carvedilol, and minoxidil * Hydralazine 10mg p.r.n. ESRD * Follows with Dr. Kaur in [facility] Nephrology as an outpatient * Recently s/p placement of a peritoneal dialysis catheter - MWF * Consult Neprhology given Dialysis -- appreciate insight and recommendations -- Dialysis planned for today, but given its scheduled time at end of day, patient would like to leave prior -- Reviewed signs, symptoms of HTN, ESRD that would warrant immediate return to hospital; amenable. -- Resume on . * Na 132, K 5.8. Monitor. Normocytic Anemia -- likely secondary to ESRD/chronic disease * Hgb at 10.8. Stable. Follow. DVT: SCD's (2) Anemia: (3) ESRD (end stage renal disease): Total Time Total Time Spent Total Time Spent (In Minutes): <30 min Discharge Plan Discharge Items Patient Disposition: Home - Self-Care Reason For Visit: PYELONEPHRITIS Discharge Diagnosis: pyelonephritis ESRD HTN Activity: Per Instructions section Non-emergency contact: Primary Care Provider and Specialist Call non-emergency contact if: you have any medication questions, your symptoms worsen, your pain is not controlled and your temperature is above 101 Follow-up/Referrals: Robinson Rasmussen DO [Primary Care Provider] - Diet: Dialysis Renal Addtl Attending Provider Instructions: He was seen in [facility] for evaluation of back pain. Upon arrival, you underwent several tests to determine the cause of this pain. Imaging of your abdomen and pelvis did demonstrate changes consistent with a kidney infection. You were placed on IV antibiotics to begin treatment, which were continued while you are here. Also during your admission, you are discovered to have induration of your left nipple around the previous biopsy site. As we discussed, it is very possible this may represent a developing infection. Thankfully, the antibiotic we are starting you on will cover for both the bugs that may cause an infection here, as well as with your kidneys. As discussed, you preferred to receive dialysis on Sunday after leaving the hospital rather than the evening Sunday dialysis. If you experience worsening headache, vision changes, mental fogginess, chest pain, palpitations, shortness of breath, or other worrisome symptoms, please return to the ER immediately for evaluation of need for urgent treatments regarding your kidneys or blood pressure. In the interim, please take cefdinir 300mg after your next 10 dialysis sessions (total of 10 days of antibiotics with days in between). No other medications were changed while you were here. Please follow-up with your PCP within 1 week to review this visit and be sure to talk about your biopsy site. It was a pleasure for caring for you while you were here, and we wish you all the best in your recovery. Pending Studies at Discharge: No Stand-Alone Forms: My [facility], Smoking Cessation Medications and DC Order Prescriptions: New minoxidil 2.5 mg Tablet 5 mg PO QAM 10 Days Qty: 20 RF: 0 Continued pantoprazole 40 mg Tablet,Delayed Release (Dr/Ec) 40 mg PO BID Qty: 60 RF: 0 clonidine HCl 0.1 mg tablet 0.1 mg PO QAM RF: 0 clonidine 0.1 mg/24 hr patch weekly 1 patch transdermal WK RF: 0 amlodipine 10 mg tablet 10 mg PO PM RF: 0 losartan 100 mg tablet 100 mg PO QAM RF: 0 calcitriol 0.25 mcg capsule 0.25 mcg PO QAM RF: 0 Discharge Orders: Discharge Order (Routine); Ordered 11/15/20 Ordered By: Wyatt Hanley/Other Patient Handouts: Kidney Infec Dc Admission Data Admit Date/Time: 11/14/20 21:36 Attending Provider: Wyatt Linton Admit Provider: Aakash Stern Primary Care Provider: Robinson Rasmussen Other Providers: Kym Arroyo Kevin C. Supervising Physician Co-Signing Physician Notes I personally examined the patient and verified all laboy points of history and exam, discussed case, and agree with decision making with Dr Spencer. Feeling okay. Back pain feeling better. Very much wants to go home. Discussed with nephrology. Input appreciated. Patient does not want to wait for dialysis. Vitals noted, in general he is awake and alert pleasant no distress. HEENT normocephalic atraumatic mucous membranes moist. Breathing unlabored no accessory muscle use good effort. No CVA tendernessDr. Tj present with me, and notes that exam is markedly improved from earlier today. Left upper chest wall biopsy site does not have erythema, does have a little bit of subcutaneous fullness possibly fluctuance, although it is not exquisitely tender. Possible pyelonephritisdifficult to discern if he truly has Al, if his flank pain was from something else, if the renal inflammation is really just from chronic rejection versus acute infectionin the end this all may be impossible to tease apart, and given that the kidney infection would be quite dangerous, will treat as such. In this respect, though he does appear stable for home. Switch to p.o. antibiotics. ESRD with hyperkalemiadiscussed red flags of what to watch for, he does not want to stay for dialysis tonight, will get set up for dialysis again as an outpatient Sunday. Because of his K being 5.8, dose of posterior murmur before discharge. Chest wall lesionunclear if it is just a postbiopsy seroma or a small infected fluid collection. Discussed ultrasound, needle aspiration, or empiric antibiotics and vigilancehe opts for the latter. Stable for home, p.o. antibiotics as above with pyelocefdiniroutpatient PCP follow-up later this week. pt expresses strong desire for discharge, understands risks/benefits. stable for home with close follow up under these conditions
[2020-11-15] MEDS ORDERED: PATIROMER CALCIUM SORBITEX 8.4 GM PACK PO STA (17:37)
--- NOTE | 2020-11-15 17:51 | Billing Data ---
Date of Service November 15, 2020 Coding Level of Care Code 23913 OBS Care - Discharge
[2020-11-15] MEDS ORDERED: PATIROMER CALCIUM SORBITEX 8.4 GM PACK PO ONE (18:00)
[2020-11-15] MEDS ORDERED: amLODIPine BESYLATE 5 MG TAB PO SCH (21:00)
[2020-11-21] MEDS ORDERED: cloNIDine HCL 0.1 MG/24 HR TRANSDERM SYS TD SCH (09:00)
== END 2020-11-15 20:20 | disposition left against medical advice (07) | DRG 690 ==
LOC: ED 17:02 → 2W 21:36 → SUATTDRO 21:36 → 2W 23:00

== ENCOUNTER 2020-11-17 11:17 | Observation (INO) ==
--- NOTE | 2020-11-17 15:40 | Emergency Department Note ---
History of Present Illness General Chief complaint: Weakness Stated complaint: KIDNEY INFECTION,COFUSION,DIZZINESS Time Seen by Provider: 11/17/20 15:29 History of Present Illness Provider complaint: Weakness confusion Onset (ago): day(s) 3 Associated symptoms: + confusion, + fever/chills, + malaise and + weakness; no chest pain, no cough, no headaches, no nausea/vomiting or no shortness of breath 45-year-old male end-stage renal disease on hemodialysis Sunday presents emergency department for weakness and confusion. Patient is here with his family member who is providing a lot of the history. Patient family member states that for the last 3 days he has been more lethargic, confused. She reports he had a fever of 101.3 today. Patient did have a full session of hemodialysis today. Patient was recently admitted to the hospital for kidney infection. Patient got a full session of hemodialysis today and has not started doing peritoneal dialysis yet. Patient is not vaccinated against COVID-19. Home Medications Medication Instructions Recorded Confirmed Type pantoprazole 40 mg tablet,delayed 40 mg PO BID #60 tab 03/20/20 11/17/20 Rx release amlodipine 10 mg tablet 10 mg PO PM 11/14/20 11/17/20 History calcitriol 0.25 mcg capsule 0.25 mcg PO QAM 11/14/20 11/17/20 History clonidine 0.1 mg/24 hr weekly 1 patch TRANSDERMAL WK 11/14/20 11/17/20 History transdermal patch clonidine HCl 0.1 mg tablet 0.1 mg PO QAM 11/14/20 11/17/20 History losartan 100 mg tablet 100 mg PO QAM 11/14/20 11/17/20 History minoxidil 2.5 mg tablet 5 mg PO QAM 10 Days #20 tab 11/15/20 11/17/20 Rx cefdinir 300 mg capsule 300 mg PO .COMPLEX #10 cap 11/16/20 11/17/20 Rx Allergies Allergy/AdvReac Type Severity Reaction Status Date / Time Bactrim Allergy Mild Rash Verified 09/19/17 00:57 sulfamethoxazole Allergy Mild Rash Verified 11/17/20 15:48 trimethoprim Allergy Mild Rash Verified 11/17/20 15:48 Past Med/Surg History Medical History Anemia COVID-19 ESRD (end stage renal disease) GI bleed History of kidney transplant Peritoneal dialysis catheter in place Sepsis UTI (urinary tract infection) Surgical History Status post removal of arteriovenous fistula Family History Denies family history of Kidney disease Social History Smoking Status: Never smoker Second Hand Exposure: No; Hx Alcohol Use: No Hx Substance Use: No Preferred Language: [place] Communication Ability: Effective Backup Administrator Required: No Beliefs That Will Affect Care: None Current Living Situation: Alone Current Living Situation Comment: at home alone. indep. 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 Feels Safe at Home: Yes Assistive Devices: None Review of Systems A total of 10 systems reviewed and were otherwise negative Physical Exam Vital Signs Vital Signs - 24 hr 11/17/20 11:37 11/17/20 15:38 11/17/20 16:02 Temperature 36.2 C L Temperature Source Temporal Artery Scan Pulse Rate 84 78 84 Pulse Rate from SpO2 Sensor 78 83 Respiratory Rate 18 20 16 Respiratory Effort / Characteristics Non-Labored Respiratory Depth Normal Blood Pressure 212/111 H 199/123 H Blood Pressure Mean 144 148 Pulse Oximetry 94 95 90 Oxygen Delivery Method Room Air Sepsis Recent Fever Within 48 Hours No Sepsis New/Unexplained Change in Mental Status No Sepsis Action Taken by Nursing No Action Required 11/17/20 16:10 11/17/20 16:20 11/17/20 16:30 Temperature Temperature Source Pulse Rate 78 83 85 Pulse Rate from SpO2 Sensor 79 83 86 Respiratory Rate 12 19 22 Respiratory Effort / Characteristics Respiratory Depth Blood Pressure Blood Pressure Mean Pulse Oximetry 95 94 97 Oxygen Delivery Method Sepsis Recent Fever Within 48 Hours Sepsis New/Unexplained Change in Mental Status Sepsis Action Taken by Nursing 11/17/20 16:40 11/17/20 16:50 11/17/20 17:00 Temperature Temperature Source Pulse Rate 87 82 91 H Pulse Rate from SpO2 Sensor 87 83 88 Respiratory Rate 20 17 26 H Respiratory Effort / Characteristics Respiratory Depth Blood Pressure Blood Pressure Mean Pulse Oximetry 94 95 93 Oxygen Delivery Method Sepsis Recent Fever Within 48 Hours Sepsis New/Unexplained Change in Mental Status Sepsis Action Taken by Nursing 11/17/20 17:01 11/17/20 17:10 11/17/20 17:20 Temperature Temperature Source Pulse Rate 77 84 Pulse Rate from SpO2 Sensor 79 83 Respiratory Rate 20 13 17 Respiratory Effort / Characteristics Non-Labored Spontaneous Respiratory Depth Blood Pressure Blood Pressure Mean Pulse Oximetry 98 93 96 Oxygen Delivery Method Room Air Sepsis Recent Fever Within 48 Hours Sepsis New/Unexplained Change in Mental Status Sepsis Action Taken by Nursing 11/17/20 17:24 11/17/20 17:34 11/17/20 18:00 Temperature Temperature Source Pulse Rate 80 93 H Pulse Rate from SpO2 Sensor 82 93 H Respiratory Rate 19 21 Respiratory Effort / Characteristics Respiratory Depth Blood Pressure 184/117 H 208/131 H Blood Pressure Mean 139 156 Pulse Oximetry 98 96 96 Oxygen Delivery Method Room Air Sepsis Recent Fever Within 48 Hours Sepsis New/Unexplained Change in Mental Status Sepsis Action Taken by Nursing 11/17/20 19:00 11/17/20 20:00 11/17/20 21:00 Temperature Temperature Source Pulse Rate 93 H 88 87 Pulse Rate from SpO2 Sensor 93 H 88 86 Respiratory Rate 21 16 16 Respiratory Effort / Characteristics Respiratory Depth Blood Pressure 187/118 H 201/123 H 215/135 H Blood Pressure Mean 141 149 161 Pulse Oximetry 93 92 95 Oxygen Delivery Method Sepsis Recent Fever Within 48 Hours Sepsis New/Unexplained Change in Mental Status Sepsis Action Taken by Nursing 11/17/20 21:49 11/17/20 22:00 11/17/20 22:20 Temperature Temperature Source Pulse Rate 83 76 76 Pulse Rate from SpO2 Sensor 82 76 76 Respiratory Rate 17 12 12 Respiratory Effort / Characteristics Respiratory Depth Blood Pressure 212/127 H 198/129 H 211/114 H Blood Pressure Mean 155 152 146 Pulse Oximetry 94 94 95 Oxygen Delivery Method Sepsis Recent Fever Within 48 Hours Sepsis New/Unexplained Change in Mental Status Sepsis Action Taken by Nursing 11/17/20 22:23 11/17/20 22:30 11/17/20 22:41 Temperature Temperature Source Pulse Rate 79 80 Pulse Rate from SpO2 Sensor 78 Respiratory Rate 16 15 Respiratory Effort / Characteristics Non-Labored Spontaneous Respiratory Depth Blood Pressure 238/99 H 222/124 H Blood Pressure Mean 145 Pulse Oximetry 97 94 Oxygen Delivery Method Room Air Sepsis Recent Fever Within 48 Hours Sepsis New/Unexplained Change in Mental Status Sepsis Action Taken by Nursing 11/17/20 22:42 11/17/20 23:00 11/17/20 23:15 Temperature Temperature Source Pulse Rate 77 76 78 Pulse Rate from SpO2 Sensor 76 74 77 Respiratory Rate 18 21 16 Respiratory Effort / Characteristics Respiratory Depth Blood Pressure 220/124 H 196/126 H 210/107 H Blood Pressure Mean 156 149 141 Pulse Oximetry 92 93 93 Oxygen Delivery Method Sepsis Recent Fever Within 48 Hours Sepsis New/Unexplained Change in Mental Status Sepsis Action Taken by Nursing 11/17/20 23:26 11/17/20 23:30 11/17/20 23:45 Temperature Temperature Source Pulse Rate 78 76 81 Pulse Rate from SpO2 Sensor 76 81 Respiratory Rate 15 15 Respiratory Effort / Characteristics Respiratory Depth Blood Pressure 220/103 H 194/117 H 169/121 H Blood Pressure Mean 142 137 Pulse Oximetry 93 93 Oxygen Delivery Method Sepsis Recent Fever Within 48 Hours Sepsis New/Unexplained Change in Mental Status Sepsis Action Taken by Nursing 11/18/20 00:00 Temperature Temperature Source Pulse Rate 76 Pulse Rate from SpO2 Sensor 77 Respiratory Rate 14 Respiratory Effort / Characteristics Respiratory Depth Blood Pressure 186/125 H Blood Pressure Mean 145 Pulse Oximetry 94 Oxygen Delivery Method Sepsis Recent Fever Within 48 Hours Sepsis New/Unexplained Change in Mental Status Sepsis Action Taken by Nursing Physical Exam HENT: Exam performed. - Head: Normocephalic and atraumatic. - Right Ear: External ear normal. No mastoid tenderness. - Left Ear: External ear normal. No mastoid tenderness. - Mouth/Throat: The oropharynx is clear and moist. No trismus in the jaw. No dental abscesses or uvula swelling. No oropharyngeal exudate or tonsillar abscesses. EYES: Conjunctivae and EOM are normal. Pupils are equal, round, and reactive to light. Right eye exhibits no discharge. Left eye exhibits no discharge. No scleral icterus. NECK: Normal range of motion. Neck supple. No JVD present. No spinous process tenderness present. No carotid bruit present. No rigidity. No tracheal deviation and normal range of motion present. No Brudzinski's sign and no Kernig's sign noted. CV: Normal rate, regular rhythm, normal heart sounds and intact distal pulses. There is no peripheral edema. Palpable radial pulses bue. PULM/CHEST: Effort normal and breath sounds normal. No respiratory distress. No stridor. He has no wheezes. He has no rales. - Chest Wall: He exhibits no tenderness. ABD: The abdomen is soft. Peritoneal dialysis catheter in place. Bowel sounds are normal. He has no distension. No mass is present. There is no tenderness. There is no rebound, no guarding, no Gallardo's sign and no tenderness at McBurney's point. Rovsig negative. MUSC/SKEL: Normal range of motion. There is no peripheral edema, tenderness or deformity. Left upper extremity AV fistula in place with palpable thrill. LYMPH: No cervical adenopathy. NEURO: He has normal strength. No cranial nerve deficit or sensory deficit. Coordination and gait normal. GCS eye subscore is 4. GCS verbal subscore is 5. GCS motor subscore is 6. Cerebellar tests wnl. Course Course 1529: The patient was evaluated in room B2. A complete history and physical exam was performed Cardiac monitoring: An order was placed for continuous cardiac monitoring. The monitor shows a rate of 80 with sinus rhythm EMR reviewed. Patient has a history of IgA vasculitis and 2 prior failed renal transplants most recently 2016 at [facility]. Patient follows with Dr. Sheth nephrology patient was admitted to the hospital from November 14 to November 15, 2020, discharged 2 days ago. At that time the patient was diagnosed with pyelonephritis of the left kidney and he was discharged with cefdinir. 1800: Patient's fire safety director Dr. Sheth came down to evaluate the patient. He recommends that the patient can be admitted to the hospitalist service for peritonitis with broad-spectrum antibiotics vancomycin and cefepime. He states he is sent peritoneal fluid dialysis analysis and culture during dialysis earlier today. He states he will continue the antibiotics overnight and evaluate the patient in the morning for replacement/removal of the peritoneal dialysis catheter which she thinks could be causing the peritonitis. Patient be admitted to the [facility] hospitalist team Dr. Garnica. Administered Medications Amlodipine Besylate (Amlodipine Besylate 5 Mg Tab) 10 mg PO PM GREG Stop: 12/17/20 22:35 Last Admin: 11/17/20 23:25 Dose: 10 mg Documented by: [id number] Discontinued Medications Vancomycin HCl 2,000 mg/ (Sodium Chloride) 540 mls @ 200 mls/hr IV NOW ONE Stop: 11/17/20 20:47 Last Infusion: 11/17/20 22:22 Dose: 0 mls/hr Documented by: [id number] Admin: 11/17/20 18:54 Dose: 200 mls/hr Documented by: [id number] Cefepime HCl (Maxipime) 2,000 mg in 20 mls @ 5 mls/min IV NOW STA; Protocol Stop: 11/17/20 18:09 Last Admin: 11/17/20 18:46 Dose: 5 mls/min Documented by: [id number] Lorazepam (Ativan) 1 mg in 2 mls @ 2 mls/min IV NOW STA Stop: 11/17/20 21:17 Last Admin: 11/17/20 21:37 Dose: 2 mls/min Documented by: [id number] Metoprolol Tartrate (Metoprolol Tartrate 1 Mg/Ml Vial) 5 mg IV NOW STA Stop: 11/17/20 21:42 Last Admin: 11/17/20 21:49 Dose: 5 mg Documented by: [id number] Metoprolol Tartrate (Metoprolol Tartrate 1 Mg/Ml Vial) 5 mg IV NOW STA Stop: 11/17/20 22:36 Last Admin: 11/17/20 22:41 Dose: 5 mg Documented by: [id number] Metoprolol Tartrate (Metoprolol Tartrate 1 Mg/Ml Vial) 5 mg IV NOW STA Stop: 11/17/20 23:19 Last Admin: 11/17/20 23:26 Dose: 5 mg Documented by: [id number] Medical Decision Making Laboratory Data Result diagrams: 11/17/20 17:20 11/17/20 17:20 Lab Results 11/17/20 11/17/20 11/17/20 Range/Units 16:26 16:26 17:20 WBC (4.8-10.8) K/uL RBC (4.7-6.1) M/uL Hgb (14.0-18.0) g/dL Hct (42-52) % MCV (80-100) fL MCH (25-34) pg MCHC (32-36) g/dL RDW Std Deviation (36.4-46.3) fL RDW Coeff of Adam (11.5-14.5) % Plt Count (130-400) K/uL MPV (7.4-10.4) fL Immature Gran % (Auto) % Neut % (Auto) % Lymph % (Auto) % [place] % (Auto) % Eos % (Auto) % Baso % (Auto) % Neut # (Auto) (1.4-6.5) K/uL Lymph # (Auto) (1.2-3.4) K/uL [place] # (Auto) (0.11-0.59) K/uL Eos # (Auto) (0-0.5) K/uL Baso # (Auto) (0-0.2) K/uL Immature Gran # (Auto) (0.00-0.02) K/uL PT (9.0-12.0) Seconds INR (0.9-1.1) APTT (21.0-31.0) Seconds PTT Ratio Sodium (136-145) mmol/L Potassium (3.5-5.1) mmol/L Chloride (98-107) mmol/L Carbon Dioxide (21-32) mmol/L Anion Gap (3-11) BUN (7-18) mg/dl Creatinine (0.6-1.4) mg/dl Est Cr Clr Drug Dosing ml/min Est GFR ( Amer) ml/min Est GFR (Non-Af Amer) ml/min BUN/Creatinine Ratio (10-20) Glucose (70-99) mg/dl Lactate (0.4-2.0) mmol/L Calcium (8.5-10.1) mg/dl Magnesium (1.8-2.4) mg/dl Total Bilirubin (0.2-1) mg/dl AST (15-37) U/L ALT (12-78) U/L Alkaline Phosphatase (45-117) U/L Total Protein (6.4-8.2) gm/dl Albumin (3.4-5.0) gm/dl Globulin (2.5-4.0) gm/dl Albumin/Globulin Ratio (0.9-2) Procalcitonin 0.93 H (0-0.5) ng/ml COVID-19 Eval Order Covid19 at [facility] SARS-CoV-2 (PCR) NEGATIVE (Negative) 11/17/20 11/17/20 11/17/20 Range/Units 17:20 17:20 17:20 WBC 4.69 L (4.8-10.8) K/uL RBC 3.59 L (4.7-6.1) M/uL Hgb 11.0 L (14.0-18.0) g/dL Hct 33.3 L (42-52) % MCV 92.8 (80-100) fL MCH 30.6 (25-34) pg MCHC 33.0 (32-36) g/dL RDW Std Deviation 51.6 H (36.4-46.3) fL RDW Coeff of Adam 15.1 H (11.5-14.5) % Plt Count 188 (130-400) K/uL MPV 9.6 (7.4-10.4) fL Immature Gran % (Auto) 0.0 % Neut % (Auto) 60.6 % Lymph % (Auto) 17.9 % [place] % (Auto) 10.2 % Eos % (Auto) 11.1 % Baso % (Auto) 0.2 % Neut # (Auto) 2.84 (1.4-6.5) K/uL Lymph # (Auto) 0.84 L (1.2-3.4) K/uL [place] # (Auto) 0.48 (0.11-0.59) K/uL Eos # (Auto) 0.52 H (0-0.5) K/uL Baso # (Auto) 0.01 (0-0.2) K/uL Immature Gran # (Auto) 0.00 (0.00-0.02) K/uL PT 10.8 (9.0-12.0) Seconds INR 1.1 (0.9-1.1) APTT 31.2 H (21.0-31.0) Seconds PTT Ratio 1.2 Sodium 137 (136-145) mmol/L Potassium 4.5 (3.5-5.1) mmol/L Chloride 98 (98-107) mmol/L Carbon Dioxide 29 (21-32) mmol/L Anion Gap 10.0 (3-11) BUN 23 H (7-18) mg/dl Creatinine 9.91 H* (0.6-1.4) mg/dl Est Cr Clr Drug Dosing 10.1 ml/min Est GFR ( Amer) 6.5 ml/min Est GFR (Non-Af Amer) 5.6 ml/min BUN/Creatinine Ratio 2.3 L (10-20) Glucose 138 H (70-99) mg/dl Lactate (0.4-2.0) mmol/L Calcium 9.0 (8.5-10.1) mg/dl Magnesium 2.6 H (1.8-2.4) mg/dl Total Bilirubin 0.4 (0.2-1) mg/dl AST 16 (15-37) U/L ALT 8 L (12-78) U/L Alkaline Phosphatase 72 (45-117) U/L Total Protein 8.3 H (6.4-8.2) gm/dl Albumin 3.2 L (3.4-5.0) gm/dl Globulin 5.1 H (2.5-4.0) gm/dl Albumin/Globulin Ratio 0.6 L (0.9-2) Procalcitonin (0-0.5) ng/ml COVID-19 Eval Order SARS-CoV-2 (PCR) (Negative) 11/17/20 Range/Units 17:20 WBC (4.8-10.8) K/uL RBC (4.7-6.1) M/uL Hgb (14.0-18.0) g/dL Hct (42-52) % MCV (80-100) fL MCH (25-34) pg MCHC (32-36) g/dL RDW Std Deviation (36.4-46.3) fL RDW Coeff of Adam (11.5-14.5) % Plt Count (130-400) K/uL MPV (7.4-10.4) fL Immature Gran % (Auto) % Neut % (Auto) % Lymph % (Auto) % [place] % (Auto) % Eos % (Auto) % Baso % (Auto) % Neut # (Auto) (1.4-6.5) K/uL Lymph # (Auto) (1.2-3.4) K/uL [place] # (Auto) (0.11-0.59) K/uL Eos # (Auto) (0-0.5) K/uL Baso # (Auto) (0-0.2) K/uL Immature Gran # (Auto) (0.00-0.02) K/uL PT (9.0-12.0) Seconds INR (0.9-1.1) APTT (21.0-31.0) Seconds PTT Ratio Sodium (136-145) mmol/L Potassium (3.5-5.1) mmol/L Chloride (98-107) mmol/L Carbon Dioxide (21-32) mmol/L Anion Gap (3-11) BUN (7-18) mg/dl Creatinine (0.6-1.4) mg/dl Est Cr Clr Drug Dosing ml/min Est GFR ( Amer) ml/min Est GFR (Non-Af Amer) ml/min BUN/Creatinine Ratio (10-20) Glucose (70-99) mg/dl Lactate 1.4 (0.4-2.0) mmol/L Calcium (8.5-10.1) mg/dl Magnesium (1.8-2.4) mg/dl Total Bilirubin (0.2-1) mg/dl AST (15-37) U/L ALT (12-78) U/L Alkaline Phosphatase (45-117) U/L Total Protein (6.4-8.2) gm/dl Albumin (3.4-5.0) gm/dl Globulin (2.5-4.0) gm/dl Albumin/Globulin Ratio (0.9-2) Procalcitonin (0-0.5) ng/ml COVID-19 Eval Order SARS-CoV-2 (PCR) (Negative) Imaging Data Radiologist's Impression: Abdomen/Pelvis CT 11/17/20 15:[address] WITHOUT CONTRAST CT DOSE: HISTORY: flank pain TECHNIQUE: Multiaxial CT images of the abdomen and pelvis were performed without contrast. A dose lowering technique was utilized adhering to the principles of ALARA. COMPARISON STUDY: Abdomen and pelvis CT 11/14/2020. FINDINGS: Trace right pleural effusion. Mild dependent changes seen within the lung bases. Small amount of extraperitoneal gas within the epigastric region has improved. There is also a few punctate foci of pneumoperitoneum within the right upper quadrant. This is new from the prior study. There is trace ascites which is also new compared the prior study. The left-sided peritoneal dialysis catheter is looped within the right lower quadrant. This is unchanged in position. Small rectus sheath/extraperitoneal hematoma within the left lower abdomen adjacent to the insertion of the peritoneal dialysis catheter remains unchanged. This measures 1.4 cm in thickness. The bladder is completely decompressed. There is persistent bladder wall thickening and adjacent fat stranding. Mild urothelial thickening within the right lower quadrant transplant remains unchanged. There is no right-sided hydronephrosis. Calcifications in the hypodense appearance to the enlarged left lower quadrant renal transplant remains stable. The left lower quadrant renal transplant hydronephrosis is also unchanged. Severely atrophic [place] kidneys are again noted. Trace pericardial effusion, unchanged. No suspicious lytic or blastic osseous lesions. The unenhanced liver, gallbladder, pancreas, spleen, and adrenal glands are unremarkable. Stable prominent retroperitoneal lymph nodes. Normal caliber a bdominal aorta. Moderate well-formed stool within the colon. Suboptimal evaluation for bowel pathology due to the lack of intravenous and oral contrast. However, there is no definite bowel wall thickening or obstruction. IMPRESSION: 1. Interval development of trace ascites and trace pneumoperitoneum. The pneumoperitoneum is indeterminate but likely due to the indwelling peritoneal dialysis catheter. 2. The peritoneal dialysis catheter remains unchanged in position and is looped within the right lower quadrant. 3. Small left anterior extraperitoneal/rectus sheath hematoma remain stable. This is adjacent to the insertion of the left-sided peritoneal dialysis catheter. 4. Bladder wall thickening with adjacent fat stranding remains unchanged. This could be chronic or represent a cystitis. Recommend correlation with urinalysis. 5. No change in the hydronephrotic left lower quadrant renal transplant. 6. Urothelial thickening within the right lower quadrant renal transplant is al so unchanged. 7. Trace pericardial effusion and a trace right pleural effusion, unchanged. ACT 112: Negative or not required by law. Electronically signed by: Dev Sosa M.D. 11/17/2020 5:46 PM Chest X-Ray 11/17/20 15:31 XR chest 1V portable HISTORY: 45 years-old Male SEPSIS acute sepsis COMPARISON: Chest radiograph 11/14/2020 TECHNIQUE: Portable AP view of the chest FINDINGS: Cardiac silhouette is enlarged. No pneumothorax, pleural effusion, airspace consolidation or overt pulmonary edema. The bones of the chest appear grossly intact. IMPRESSION: Cardiomegaly without acute process. ACT 112: Negative or not required by law. The above report was generated using voice recognition software. It may contain grammatical, syntax or spelling errors. Electronically signed by: Lionel Hitchcock M.D. 11/17/2020 5:[address] 11/17/20 15:[address] DOSE: 1416.88 mGy.cm HISTORY: Altered mental status. TECHNIQUE: Multiaxial CT images of the head were performed without the use of intravenous contrast. Automated exposure control was utilized for this study. A dose lowering technique was utilized adhering to the principles of ALARA. Comparison: None. Findings: The paranasal sinuses and mastoid air cells are clear. The calvarium and skull base are intact. The ventricles and sulci are within normal limits. There is no mass, hematoma, midline shift, or acute infarct. Impression: No acute intracranial abnormality. ACT 112: Negative or not required by law. Electronically signed by: Dev Sosa M.D. 11/17/2020 6:03 PM [facility] Narrative 1529: The patient was evaluated in room B2. A complete history and physical exam was performed Cardiac monitoring: An order was placed for continuous cardiac monitoring. The monitor shows a rate of 80 with sinus rhythm EMR reviewed. Patient has a history of IgA vasculitis and 2 prior failed renal transplants most recently 2016 at [facility]. Patient follows with Dr. Sheth neph rologjennifer patient was admitted to the hospital from November 14 to November 15, 2020, discharged 2 days ago. At that time the patient was diagnosed with pyelonephritis of the left kidney and he was discharged with cefdinir. 1800: Patient's fire safety director Dr. Sheth came down to evaluate the patient. He recommends that the patient can be admitted to the hospitalist service for peritonitis with broad-spectrum antibiotics vancomycin and cefepime. He states he is sent peritoneal fluid dialysis analysis and culture during dialysis earlier today. He states he will continue the antibiotics overnight and evaluate the patient in the morning for replacement/removal of the peritoneal dialysis catheter which she thinks could be causing the peritonitis. Patient be admitted to the [facility] hospitalist team Dr. Garnica. Impression & Plan Peritonitis Discharge Plan Visit Data Chief Complaint: Weakness Stated Complaint: KIDNEY INFECTION,COFUSION,DIZZINESS ED Provider: Yassine Perez Discharge Problem: Peritonitis Patient Disposition: Being Evaluated by Hospitalist Forms Stand Alone Forms: My [facility] Prescriptions Prescriptions: No Action cefdinir 300 mg capsule 300 mg PO .COMPLEX Qty: 10 RF: 0 pantoprazole 40 mg Tablet,Delayed Release (Dr/Ec) 40 mg PO BID Qty: 60 RF: 0 clonidine HCl 0.1 mg tablet 0.1 mg PO QAM RF: 0 clonidine 0.1 mg/24 hr patch weekly 1 patch transdermal WK RF: 0 amlodipine 10 mg tablet 10 mg PO PM RF: 0 losartan 100 mg tablet 100 mg PO QAM RF: 0 calcitriol 0.25 mcg capsule 0.25 mcg PO QAM RF: 0 minoxidil 2.5 mg Tablet 5 mg PO QAM 10 Days Qty: 20 RF: 0 Referrals Referrals: Robinson Rasmussen DO [Primary Care Provider] -
--- NOTE | 2020-11-17 17:10 | XRay Report ---
XR chest 1V portable HISTORY: 45 years-old Male SEPSIS acute sepsis COMPARISON: Chest radiograph 11/14/2020 TECHNIQUE: Portable AP view of the chest FINDINGS: Cardiac silhouette is enlarged. No pneumothorax, pleural effusion, airspace consolidation or overt pu lmonary edema. The bones of the chest appear grossly intact. IMPRESSION: Cardiomegaly without acute process. ACT 112: Negative or not required by law. The above report was generated using voice recognition software. It may contain grammatical, syntax o r spelling errors. Electronically signed by: Lionel Hitchcock M.D. 11/17/2020 5:09 PM
[2020-11-17 17:37] LABS: Basophils # (auto) 0.01 K/uL (0-0.2); Basophils % (auto) 0.2 %; Eosinophils # (auto) 0.52 K/uL (0-0.5); Eosinophils % (auto) 11.1 %; Hematocrit (blood only) 33.3 % (42-52); Lymphocytes # (auto) 0.84 K/uL (1.2-3.4); Lymphocytes % (auto) 17.9 %; Mean Corpuscular Hemoglobin 30.6 pg (25-34); Mean Corpuscular Volume 92.8 fL (80-100); Mean Platelet Volume 9.6 fL (7.4-10.4); Monocytes # (auto) 0.48 K/uL (0.11-0.59); Monocytes % (auto) 10.2 %; Neutrophils # (auto) 2.84 K/uL (1.4-6.5); Neutrophils % (auto) 60.6 %; Platelet Count 188 K/uL (130-400); RDW Coefficient of Variation 15.1 % (11.5-14.5); RDW Standard Deviation 51.6 fL (36.4-46.3); Red Blood Count 3.59 M/uL (4.7-6.1); White Blood Count 4.69 K/uL (4.8-10.8)
--- NOTE | 2020-11-17 17:47 | CT Scan Report ---
ABDOMEN AND PELVIS CT WITHOUT CONTRAST CT DOSE: HISTORY: flank pain TECHNIQUE: Multiaxial CT images of the abdomen and pelvis were performed without contrast. A dose lo wering technique was utilized adhering to the principles of ALARA. COMPARISON STUDY: Abdomen and pelvis CT 11/14/2020. FINDINGS: Trace right pleural effusion. Mild dependent changes seen within the lung bases. Small amou nt of extraperitoneal gas within the epigastric region has improved. There is also a few punctate foc i of pneumoperitoneum within the right upper quadrant. This is new from the prior study. There is tra ce ascites which is also new compared the prior study. The left-sided peritoneal dialysis catheter is looped within the right lower quadrant. This is unchanged in position. Small rectus sheath/extraperi toneal hematoma within the left lower abdomen adjacent to the insertion of the peritoneal dialysis ca theter remains unchanged. This measures 1.4 cm in thickness. The bladder is completely decompressed. There is persistent bladder wall thickening and adjacent fat stranding. Mild urothelial thickening wi thin the right lower quadrant transplant remains unchanged. There is no right-sided hydronephrosis. C alcifications in the hypodense appearance to the enlarged left lower quadrant renal transplant remain s stable. The left lower quadrant renal transplant hydronephrosis is also unchanged. Severely atrophi c [place] kidneys are again noted. Trace pericardial effusion, unchanged. No suspicious lytic or blast ic osseous lesions. The unenhanced liver, gallbladder, pancreas, spleen, and adrenal glands are unrem arkable. Stable prominent retroperitoneal lymph nodes. Normal caliber abdominal aorta. Moderate well- formed stool within the colon. Suboptimal evaluation for bowel pathology due to the lack of intraveno us and oral contrast. However, there is no definite bowel wall thickening or obstruction. IMPRESSION: 1. Interval development of trace ascites and trace pneumoperitoneum. The pneumoperitoneum is indeterm inate but likely due to the indwelling peritoneal dialysis catheter. 2. The peritoneal dialysis catheter remains unchanged in position and is looped within the right lowe r quadrant. 3. Small left anterior extraperitoneal/rectus sheath hematoma remain stable. This is adjacent to the insertion of the left-sided peritoneal dialysis catheter. 4. Bladder wall thickening with adjacent fat stranding remains unchanged. This could be chronic or re present a cystitis. Recommend correlation with urinalysis. 5. No change in the hydronephrotic left lower quadrant renal transplant. 6. Urothelial thickening within the right lower quadrant renal transplant is also unchanged. 7. Trace pericardial effusion and a trace right pleural effusion, unchanged. ACT 112: Negative or not required by law. Electronically signed by: Dev Sosa M.D. 11/17/2020 5:46 PM
[2020-11-17 17:55] LABS: INR 1.1 (0.9-1.1); Partial Thromboplastin Ratio 1.2; Partial Thromboplastin Time 31.2 Seconds (21.0-31.0); Prothrombin Time 10.8 Seconds (9.0-12.0)
--- NOTE | 2020-11-17 18:04 | CT Scan Report ---
HEAD CT NONCONTRAST CT DOSE: 1416.88 mGy.cm HISTORY: Altered mental status. TECHNIQUE: Multiaxial CT images of the head were performed without the use of intravenous contrast. A utomated exposure control was utilized for this study. A dose lowering technique was utilized adheri ng to the principles of ALARA. Comparison: None. Findings: The paranasal sinuses and mastoid air cells are clear. The calvarium and skull base are int act. The ventricles and sulci are within normal limits. There is no mass, hematoma, midline shift, or acute infarct. Impression: No acute intracranial abnormality. ACT 112: Negative or not required by law. Electronically signed by: Dev Sosa M.D. 11/17/2020 6:03 PM
[2020-11-17] MEDS ORDERED: VANCOMYCIN CONSULT ACTIVE PRN (18:06)
[2020-11-17] MEDS ORDERED: VANCOMYCIN HCL 2,000 MG in SODIUM CHLORIDE 0.9% 500 ML IV ONE (18:06)
[2020-11-17] MEDS ORDERED: CEFEPIME 2,000 MG/20 ML VIAL IV STA (18:06)
[2020-11-17 18:20] LABS: Albumin Globulin Ratio 0.6 (0.9-2); Albumin Level 3.2 gm/dl (3.4-5.0); BUN Creatinine Ratio 2.3 (10-20); Bilirubin,Total 0.4 mg/dl (0.2-1); Creatinine Clr Calc Pharmacy 10.1 ml/min; Est GFR (African American) 6.5 ml/min; Est GFR (Non-African American) 5.6 ml/min; Globulin 5.1 gm/dl (2.5-4.0); Magnesium 2.6 mg/dl (1.8-2.4); Potassium 4.5 mmol/L (3.5-5.1); Total Protein 8.3 gm/dl (6.4-8.2)
[2020-11-17] MEDS ORDERED: LORazepam 1 MG/2 ML VIAL IV STA (21:16)
[2020-11-17] MEDS ORDERED: METOPROLOL TARTRATE 1 MG/ML VIAL IV STA ×3 (21:41→23:18)
--- NOTE | 2020-11-17 21:55 | History & Physical Report ---
Date of Service November 17, 2020 Assessment & Plan (1) Peritoneal dialysis catheter in place: Plan: 45 yo M w/ pMHx. of IgA vasculitis, ESRD on dialysis MWF, recently admitted for concern of pyelonephritis vs. peritonitis vs. soft tissue infection of the chest readmitted when he was found to be febrile and confused at dialysis today concerning for acute worsening of infection CT A/P - showing post operative changes from the interval dialysis catheter placement and improvement in perinephric fat stranding and hydronephrosis - similar to prior imaging EKG: NSR COVID negative, CXR with stable mild cardiomegaly, nl. WBC K 4.5 - consider paracentesis or peritoneal fluid sampling to further evaluate fluid although value unclear given pretreatment and risk of introducing infection - consulted Nephrology for dialysis while inpatient - covering for possible peritoneal infection with skin bacteria with Vancomycin and Cefepime - blood cultures obtained - continue to follow BMP and CBC HTN SBP as high as 212 in the ER - given Lopressor 5 mg IV X3 - continue home clonidine patch & oral - continue Losartan - continue Amlodipine Anemia, normocytic - potentially 2/2 chronic disease HGB 1011 - improved from prior - continue to follow Code: Full Diet: renal dialysis diet DVT: SCD's (2) Fever: (3) ESRD (end stage renal disease): (4) Hypertension: (5) Anemia: History of Present Illness Chief Complaint: Fever Primary Care Provider: Robinson Dean Capp, DO Suraj Lazcano is a 44-year-old male with a past medical history of 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 He had not taken any of the oral antibiotics yet as the script mentioned that he should take it MWF after dialysis and he had his first dialysis Sunday. He was noted to be febrile to 101.5 at dialysis and they sent him to the ER for further evaluation. He notes that he was confused on Sunday when he woke up. He has had resolution of his left sided back/flank pain that he had prior to last admission and has no abdominal pain. He had a peritoneal dialysis catheter placed on Sunday (11/09) in [place]. His Lab Director is Dr. Kaur and PCP is Dr. Rasmussne. ER course: blood cultures, Vancomycin, Cefepime Daughter Ayan would like to updated with any changes # Allergies Allergy/AdvReac Type Severity Reaction Status Date / Time Bactrim Allergy Mild Rash Verified 09/19/17 00:57 sulfamethoxazole Allergy Mild Rash Verified 11/17/20 15:48 trimethoprim Allergy Mild Rash Verified 11/17/20 15:48 Home Medications Medication Instructions Recorded Confirmed Type pantoprazole 40 mg tablet,delayed 40 mg PO BID #60 tab 03/20/20 11/17/20 Rx release amlodipine 10 mg tablet 10 mg PO PM 11/14/20 11/17/20 History calcitriol 0.25 mcg capsule 0.25 mcg PO QAM 11/14/20 11/17/20 History clonidine 0.1 mg/24 hr weekly 1 patch TRANSDERMAL WK 11/14/20 11/17/20 History transdermal patch clonidine HCl 0.1 mg tablet 0.1 mg PO QAM 11/14/20 11/17/20 History losartan 100 mg tablet 100 mg PO QAM 11/14/20 11/17/20 History minoxidil 2.5 mg tablet 5 mg PO QAM 10 Days #20 tab 11/15/20 11/17/20 Rx cefdinir 300 mg capsule 300 mg PO .COMPLEX #10 cap 11/16/20 11/17/20 Rx Past Med/Surg History Medical History Anemia COVID-19 ESRD (end stage renal disease) GI bleed History of kidney transplant Peritoneal dialysis catheter in place Sepsis UTI (urinary tract infection) Surgical History Status post removal of arteriovenous fistula Family History Denies family history of Kidney disease Social History Smoking Status: Never smoker Second Hand Exposure: No; Hx Alcohol Use: No Hx Substance Use: No Preferred Language: Yakut Communication Ability: Effective Modeling Agent Required: No Beliefs That Will Affect Care: None Current Living Situation: Alone Current Living Situation Comment: at home alone. indep. 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 Feels Safe at Home: Yes Safety Concerns: Feels Safe At This Time Assistive Devices: None Review of Systems Review of Systems: Constitutional: denies nausea, vomiting, generalized weakness, diaphoresis, night sweats, weight loss admits fevers, fatigue Head: denies trauma, LOC, headache, lightheadedness, vision changes admits confusion prior to dialysis Neurologic: Denies syncope, slurring of speech, focal weakness ENT: denies rhinorrhea, stuffiness, sneezing, sore throat Cardiac: denies chest pain, palpitations Pulm.: denies cough, shortness of breath, hemoptysis, sputum production GI: denies constipation (LBM today), diarrhea, blood in stool : aneuric Physical Exam Physical Exam: Constitutional: WD/WN, vitals as above Eyes: PERRL, conjunctivae normal, anicteric sclerae ENMT: external ear and nose normal, oropharynx normal Neck: normal visual inspection Respiratory: normal respiratory effort, lungs clear to auscultation Cardiovascular: Rate/Rhythm: regular rate Heart Sounds: no murmur Extre mities: no edema Chest: Left chest - superior to the nipple with slight erythema, warmth, cystic deep mass Gastrointestinal (Abdomen): - decreased bowel sounds - soft abdomen without guarding - nTTP - peritoneal dialysis catheter in the left side, no erythema, drainage, appears clean, dry, intact - Right and left lower abdomen well healed scar from prior transplant - no CVA tenderness Skin: no rashes, warm and dry Psychiatric: Orientation: alert and oriented x 3 Results & Data Results & Data ([facility]) Vital Signs (Past 12 Hours) Vital Signs Temp Pulse Resp BP Pulse Ox 11/17/20 21:00 87 16 215/135 H 95 11/17/20 20:00 88 16 201/123 H 92 11/17/20 19:00 93 H 21 187/118 H 93 11/17/20 18:00 93 H 21 208/131 H 96 11/17/20 17:34 80 19 184/117 H 96 11/17/20 17:24 98 11/17/20 17:20 84 17 96 11/17/20 17:10 77 13 93 11/17/20 17:01 20 98 11/17/20 17:00 91 H 26 H 93 11/17/20 16:50 82 17 95 11/17/20 16:40 87 20 94 11/17/20 16:30 85 22 97 11/17/20 16:20 83 19 94 11/17/20 16:10 78 12 95 11/17/20 16:02 84 16 90 11/17/20 15:38 78 20 199/123 H 95 11/17/20 11:37 36.2 C L 84 18 212/111 H 94 CBC Results Results Complete Blood Count Results: RBC 3.41 M/uL (4.7-6.1) L 11/18/20 WBC 5.00 K/uL (4.8-10.8) 11/18/20 Hgb 10.2 g/dL (14.0-18.0) L 11/18/20 Hct 31.1 % (42-52) L 11/18/20 Plt Count 173 K/uL (130-400) 11/18/20 Chemistry (BMP) Results BMP Results: Sodium 137 mmol/L (136-145) 11/18/20 Potassium 4.7 mmol/L (3.5-5.1) 11/18/20 Chloride 102 mmol/L (98-107) 11/18/20 BUN 28 mg/dl (7-18) H 11/18/20 Creatinine 11.80 mg/dl (0.6-1.4) H* 11/18/20 Glucose 91 mg/dl (70-99) 11/18/20 Code Status & VTE Plan VTE Prophylaxis Plan VTE Prophylaxis will be ordered: Yes Supervising Physician Co-Signing Physician Notes Attending addendum: I have physically seen this patient, have supervised the medical residents activities, and agree with the H&P unless as otherwise noted. Assessment and Plan: Peritonitis/recent placement of peritoneal dialysis catheter- Broad-spectrum antibiotic coverage with vancomycin and cefepime Follow blood cultures Consult nephrology Consider paracentesis Follow serial CBC with differential and chemistry profile Hypertension- Blood pressure initially elevated in the emergency department, then improved with Lopressor 5 mg IV x3 Continue home clonidine patch and oral clonidine, continue losartan and amlodipine Remaining orders and notations as noted Resident Activity Tracking Resident Involvement: Resident Care Provided Care Provided: Adult Hospital Medicine (1) Anemia Anemia type: due to chronic kidney disease Chronic kidney disease stage: on chronic dialysis Qualified Code(s): N18.6 - End stage renal disease; D63.1 - Anemia in chronic kidney disease; Z99.2 - Dependence on renal dialysis
[2020-11-17] MEDS: amLODIPine BESYLATE 5 MG TAB PO SCH (23:25)
[2020-11-18] MEDS ORDERED: POLYETHYLENE (MIRALAX) 17 GM PACK PO PRN (01:23)
[2020-11-18] MEDS ORDERED: METOPROLOL TARTRATE 1 MG/ML VIAL IV PRN (01:23)
[2020-11-18] MEDS ORDERED: ACETAMINOPHEN 325 MG TAB PO PRN (01:23)
--- NOTE | 2020-11-18 02:16 | Pharmacy Report ---
Pharmacy Abx Dose Short Note - Date of Service November 18, 2020 - Assessment & Plan Assessment 45 year old M receiving Vancomycin and Cefepime for treatment of possible peritoneal infection with skin bacteria * PMHx significant for IgA vasculitis leading to two kidney transplants which have failed now on IHD on MWF. Has a peritoneal catheter in place but not in use yet. Still on IHD. * Recently here for UTI from 11/14/20-11/15/20. Received Vancomycin and Zosyn then discharged on Cefdinir. Had not taken any cefdinir prior to coming back into hospital. Was febrile and confused at HD today so brought into hospital. Plan Vancomycin * Loading Dose: 2000 mg (25 mg/kg) IV x 1 * No maintenance dose at this time given IHD. Will dose per level. * Will order a random level with AM labs tomorrow in case patient would need more vancomycin prior to next HD session on Sunday or in the event that emergent dialysis is needed tomorrow. Cefepime * 2000 mg IV x 1 in the ER * 500 mg IV every 24 hours for IHD starting 11/18/20 * Not a pharmacy consult Pharmacy will continue to follow and will adjust dose/frequency as necessary. Thank you.
[2020-11-18] MEDS: PANTOprazole 40 MG TAB PO SCH ×3 (02:31→20:51)
[2020-11-18] MEDS: cloNIDine HCL 0.1 MG TAB PO SCH ×2 (05:01→09:15)
[2020-11-18 05:52] LABS: Basophils # (auto) 0.02 K/uL (0-0.2); Basophils % (auto) 0.4 %; Eosinophils # (auto) 0.97 K/uL (0-0.5); Eosinophils % (auto) 19.4 %; Hematocrit (blood only) 31.1 % (42-52); Hemoglobin 10.2 g/dL (14.0-18.0); Immature Granulocytes # (auto) 0.01 K/uL (0.00-0.02); Immature Granulocytes % (auto) 0.2 %; Mean Corpuscular Hemoglobin 29.9 pg (25-34); Mean Corpuscular Hgb Conc 32.8 g/dL (32-36); Mean Corpuscular Volume 91.2 fL (80-100); Mean Platelet Volume 10.2 fL (7.4-10.4); Monocytes # (auto) 0.54 K/uL (0.11-0.59); Monocytes % (auto) 10.8 %; Neutrophils # (auto) 2.16 K/uL (1.4-6.5); Neutrophils % (auto) 43.2 %; Platelet Count 173 K/uL (130-400); RDW Coefficient of Variation 15.2 % (11.5-14.5); RDW Standard Deviation 50.4 fL (36.4-46.3); Red Blood Count 3.41 M/uL (4.7-6.1)
[2020-11-18] MEDS ORDERED: CEFEPIME 2,000 MG in SYRINGE 0 ML IV SCH (06:00)
[2020-11-18 06:29] LABS: BUN Creatinine Ratio 2.3 (10-20); Calcium 8.8 mg/dl (8.5-10.1); Creatinine Clr Calc Pharmacy 8.5 ml/min; Est GFR (African American) 5.2 ml/min; Est GFR (Non-African American) 4.5 ml/min; Potassium 4.7 mmol/L (3.5-5.1)
--- NOTE | 2020-11-18 06:48 | Hospitalist Progress Note ---
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 Kaur, as well as recent LEFT nipple biopsy who presented with fever and increased somnolence following a recent discharge for pyelonephritis AND in the setting of recent PD catheter placement last week. He is hemodynamically stable. Fever -- concern for possible peritoneal-dialysis associated peritonitis vs. allograft rejection * Recently discharged on 11/15 for possible pyelonephritis (fever, flank pain, perinephric stranding on CT) * Found to have T 101.5 at dialysis alongside lethargy and confusion Sunday morning and at dialysis -- had not taken any of outpatient antibiotics following discharge * Work-up as follows: -- No temperature, leukocytosis since arrival. Procal mildly elevated to 0.93 -- Clinically, no abdominal / back pain. Mentating appropriately -- BCX: pending -- Peritoneal sample: Liseth-cloudy, ~1170 WBCs, [id number] RBCs: approx. 440 PMNs Gram stain (-), culture pending -- CT-A/P: Trace ascites, hydronephrotic kidney, bladder wall thickening * Continue cefepime, vancomycin IV for broad-spectrum coverage * Nephrology consulted, appreciate insight and recommendations: -- Spoke with [facility] Transplant team, reviewed CT findings: clinical appearance c/f transplant rejection -- Continue treatment for suspected peritonitis -- repeating fluid tests today on fresh draw -- Start prednisone 10mg / day while awaiting as treatment for possible rejection * Await fluid sample culture -- consider additional sample in 3 days post therapy Left Nipple Induration -- likely minior infectious component * Recently s/p biopsy of infraaleolar tissue mass (per patient) - was told it was fatty tissue (?lipoma) * Concern this may be civil rights representative of underlying inflammatory changes (e.g., scar) vs. infection * Given this has been ongoing for a month -- OK for cefdinir, which should give good coverage, as above -- Reassess as outpatient. Consider aspiration and culture vs. ultrasonography -- If unimproved and persistence of concern for infection continues, would add MRSA coverage * Will attempt aspiration today Chronic, Refractory HTN -- BPs occasionally exceeding >220/110, asymptomatic * In setting of ESRD requiring PD t.i.w. * Continue home clonidine p.o. and transdermal * Continue losartan, amlodipine, carvedilol, and minoxidil * Hydralazine 10mg p.r.n. ESRD -- BUN/Cr at 28/11.80 following PD on Sunday, 11/17 * Follows with Dr. Kaur in [facility] Nephrology as an outpatient * Recently s/p placement of a peritoneal dialysis catheter - MWF * Consult Neprhology on admission given possible need for dialysis during course here Normocytic Anemia -- likely secondary to ESRD/chronic disease * Hgb at 10.8. Stable. Follow. Code: FULL CODE Dispo: MS/T PPX: SCDs Diet: Renal (2) Fever: (3) ESRD (end stage renal disease): (4) Hypertension: (5) Anemia: Admission and Anticipated Discharge Date Admission Date: November 17, 2020 Supervising Physician Co-Signing Physician Notes I personally examined the patient and verified all laboy points of history and exam, discussed case, and agree with decision making with Dr Tj kaur as well input greatly appreciated. pt feeling better wonders about being able to go home roma noted nad heent nc at mmm abd soft nt no focal neuro deficit skin without rashes pallor or icterus Peritonitiscontinue Vanco and cefepime. Continue flushes as per nephrology. Hopefully home soon on p.o. for gram-negative, likely Vanco after HD for gram- positive Possible ongoing rejection of already failed renal transplantprednisone DVT prophylaxisambulation Subjective NAEO. Feeling ok this AM. Fatigued and tired from lack of sleep, but otherwise no complaints. Denies any symptoms of illness the last few days - but does endorse the fever. Did complete dialysis yesterday. No abdominal pain. Back pain resolved. Left nipple inflammation unchanged from his perspective. No chest pain / palpitations / SOB. No diarrhea. Review of Systems Review of Systems: as per HPI Physical Exam Physical Exam: General: Well appearing 45-year-old male who is lying back in his hospital bed, relaxed, upon my arrival. NAD. HEENT: NCAT. Eyes - Sclera are white, anicteric, and without injection. Mouth - MMM with no tonsillar edema or exudates. Cardiac: Normal rate and regular rhythm; S1 and S2 present with no murmurs, ru bs, or gallops. Pulmonary: Good respiratory effort with symmetric expansion of the chest. No use of accessory muscles. Lungs were clear to auscultation bilaterally with no aircraft riveter ckles or wheezes. Abdominal: Normoactive bowel sounds. PD catheter covered with a clean dressing, in place. Very mild distention. No TTP. No CVA tenderness. Extremities: Upper and lower extremities are warm and well perfused. Radial and dorsalis pedis pulses were 2+ b/l. No peripheral edema. Derm: There is an area just superior to the left nipple, with underlying induration extending beneath the incision to ~2cm below the nipple. Hard to the touch, mildly TTP. Improved since last admission. Erythema decreased, almost ba rely visible. Results & Data Results & Data ([facility]) Vital Signs (Past 12 Hours) Vital Signs Temp Pulse Pulse Resp BP BP Pulse Ox 11/18/20 04:40 204/110 H 11/18/20 03:15 37.0 C 83 20 199/105 H 94 11/18/20 02:34 88 205/96 H 11/18/20 01:28 36.7 C 82 16 196/115 H 96 11/18/20 00:45 81 36 H 181/105 H 93 11/18/20 00:30 84 15 204/130 H 92 11/18/20 00:15 82 18 195/137 H 90 11/18/20 00:00 76 14 186/125 H 94 11/17/20 23:45 81 15 169/121 H 93 11/17/20 23:30 76 15 194/117 H 93 11/17/20 23:26 78 220/103 H 11/17/20 23:15 78 16 210/107 H 93 11/17/20 23:00 76 21 196/126 H 93 11/17/20 22:42 77 18 220/124 H 92 11/17/20 22:41 80 222/124 H 11/17/20 22:30 79 15 238/99 H 94 11/17/20 22:23 16 97 11/17/20 22:20 76 12 211/114 H 95 11/17/20 22:00 76 12 198/129 H 94 11/17/20 21:49 83 17 212/127 H 94 11/17/20 21:00 87 16 215/135 H 95 11/17/20 20:00 88 16 201/123 H 92 11/17/20 19:00 93 H 21 187/118 H 93 Resident Activity Tracking Resident Involvement: Resident Care Provided Care Provided: Adult Hospital Medicine (1) Anemia Anemia type: due to chronic kidney disease Chronic kidney disease stage: on chronic dialysis Qualified Code(s): N18.6 - End stage renal disease; D63.1 - Anemia in chronic kidney disease; Z99.2 - Dependence on renal dialysis
[2020-11-18] MEDS: CALCITRIOL 0.25 MCG CAPSULE PO SCH (07:36)
[2020-11-18] MEDS: CHECK CLONIDINE PATCH PLACEMENT SCH ×3 (07:37→23:34)
[2020-11-18] MEDS ORDERED: cloNIDine HCL 0.1 MG TAB PO SCH (09:00)
[2020-11-18] MEDS ORDERED: minoxidiL 2.5 MG TAB PO SCH (09:00)
[2020-11-18] MEDS: LOSARTAN POTASSIUM 50 MG TAB PO SCH (09:15)
[2020-11-18] MEDS: predniSONE 10 MG TABLET PO SCH (12:22)
--- NOTE | 2020-11-18 12:41 | Nephrology Consultation ---
Date of Consultation November 18, 2020 Assessment & Plan (1) ESRD (end stage renal disease): MWF HD. Volume status acceptable. Electrolytes controlled. Next anticipated HD tomorrow. Repeat vanco level tomorrow AM prior to HD and dose accordingly per pharmacy consult. Medications currently appropriately dosed for IHD. (2) Peritoneal dialysis catheter in place: PD catheter to be flushed and dressing change to be performed today. Will repeat gram stain and culture. Treatment for culture negative peritonitis advised. Remains on IV antibiotic therapy pending final culture results. I have contacted Dr. Noe's office to provide an update. Waiting a call from the surgeon. (3) Hypertension: Notable history of poorly controlled hypertension. Suraj denies symptoms. Home Rx amlodipine 10 mg, carvedilol 25 BID, losartan 100, and minoxidil 5 mg daily. Plan to continue home medications as Rx. Added clonidine PRN for accelerated HTN. Titrate Minoxidil PRN or consider LA nitrate PRN. (4) Kidney transplant recipient: CT reviewed. Case discussed with transplant team. Clinical presentation concerning for symptomatic rejection. Prednisone 10 mg daily added for now. History of Present Illness Reason for Consultation: ESRD Requesting Physician: Wyatt Linton DO Attending Physician: Wyatt Linton DO History of Present Illness Mr. Suraj Platt returned to the ER at [facility] yesterday at my request. Following his recently hospitalization, Suraj continued to struggle with fatigue and some mental status changes at home. A friend of Fabian had expressed concerns on Sunday. They found Suraj to be lethargic and not thinking clearly. During hemodialysis yesterday, Suraj was found to have mental status changes and fevers (Tmax 101.4). The PD catheter was flushed and a dwell was provided which was sent to the lab at [facility] for cell count and cultures. The fluid is notably bloody and WBC consistent with peritonitis. However, gram stain and culture have been negative. Suarj has been afebrile at [facility]. His WBC is normal. CT was reviewed in the ER yesterday. I saw Suraj in the ER and discussed the case with Dr. Perez. Suraj was admitted for observation. CT findings and clinical presentation consistent with infection versus possible symptomatic allograft rejection. The left kidney allograft is notably enlarged and dilated. I called the [facility] transplant program this AM and spoke with one of the surgeons. CT findings were reviewed. In agreement of concern for symptomatic rejection, a trial of prednisone was encouraged while we continue to monitor for evidence of infection. Suraj's abdomen has been benign relatively benign with some mild tenderness over the left sided allograft and the left flank initially. Suraj was weaned off [place] by the transplant team ~1 month ago. Suraj completed a full dialysis treatment yesterday. I have followed Suraj in the clinic for several years for management of his k idney dysfunction. Suraj is maintained on IHD on a MWF schedule at [facility]. His outpatient Rx is 3.5 hrs on a 180 optiflux 450/800, 3 K. EDW has been 80.5 kg. Suraj underwent PD catheter placement on November [address] Noe in [place] with plans to transition to PD in the near future. He felt well post catheter placement. Surgery did involve notable lysis of adhesions from prior abdominal surgeries including a PD catheter in the past and 2 x kidney transplant. Dialysis has been without complications. 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 It is unclear if he had a biopsy at the time of this diagnosis. He developed ESRD shortly after initial diagnosis requiring dialysis. Suraj was initially on PD but did not like to modality. He switched to in-center HD and eventually underwent a DDRT in 1994. This allograft function lasted approximately 20 years. He describes an uncomplicated transplant with immediate allograft function. Unfortunately, the kidney started to fail in 2013. This is around the time that he initially saw me in the nephrology clinic. By 2016, he required GALLERY HOST. Suraj was on HD for 2 weeks prior to undergoing a living unrelated donor transplant in October of 2016. Medical history also includes gross intermittent hematuria as well as chronic cystitis and recurrent UTI. He followed with urology in the past. Suraj was diagnosed with hypertension in 1994 following his kidney transplant he has been maintained on atenolol since that time. Nifedipine was added and he has been a stable dose of these medications for several years with appropriate control of his blood pressure. Allergies Allergy/AdvReac Type Severity Reaction Status Date / Time Bactrim Allergy Mild Rash Verified 09/19/17 00:57 sulfamethoxazole Allergy Mild Rash Verified 11/17/20 15:48 trimethoprim Allergy Mild Rash Verified 11/17/20 15:48 Home Medications Medication Instructions Recorded Confirmed Type pantoprazole 40 mg tablet,delayed 40 mg PO BID #60 tab 03/20/20 11/17/20 Rx release amlodipine 10 mg tablet 10 mg PO PM 11/14/20 11/17/20 History calcitriol 0.25 mcg capsule 0.25 mcg PO QAM 11/14/20 11/17/20 History clonidine 0.1 mg/24 hr weekly 1 patch TRANSDERMAL WK 11/14/20 11/17/20 History transdermal patch clonidine HCl 0.1 mg tablet 0.1 mg PO QAM 11/14/20 11/17/20 History losartan 100 mg tablet 100 mg PO QAM 11/14/20 11/17/20 History minoxidil 2.5 mg tablet 5 mg PO QAM 10 Days #20 tab 11/15/20 11/17/20 Rx cefdinir 300 mg capsule 300 mg PO .COMPLEX #10 cap 11/16/20 11/17/20 Rx Patient History Medical History Anemia COVID-19 ESRD (end stage renal disease) GI bleed History of kidney transplant Peritoneal dialysis catheter in place Sepsis UTI (urinary tract infection) Surgical History Status post removal of arteriovenous fistula Family History Denies family history of Kidney disease Social History Smoking Status: Never smoker Second Hand Exposure: No; Hx Alcohol Use: No Hx Substance Use: No Preferred Language: Occitan Communication Ability: Effective [place] Former Brace End Required: No Beliefs That Will Affect Care: None Current Living Situation: Alone Current Living Situation Comment: at home alone. indep. 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 Feels Safe at Home: Yes Safety Concerns: Feels Safe At This Time Assistive Devices: None Review of Systems Review of Systems: All systems reviewed & are unremarkable except as noted in HPI & below Physical Exam Constitutional: well developed; no acute distress Eyes: no scleral abnormality and no corneal abnormality ENMT: Mouth: no oral mucosal abnormality and oral mucous membranes not dry Neck: normal visual inspection and trachea midline Respiratory: normal respiratory effort Auscultation: lungs clear to auscultation bilaterally Cardiovascular: Rate/Rhythm: regular rate Heart Sounds: normal S1 and normal S2 Extremities: + AV fistula; no edema Gastrointestinal (Abdomen): Inspection/Auscultation: abdomen not distended Percussion/Palpation: + abdomen tender (mild tenderness over the left lower quardrant allograft) and abdomen soft; no guarding and no ascites Musculoskeletal: Extremities: no cyanosis and no clubbing Skin: normal turgor; no lesions Neurologic: Motor/Sensory: no tremor and no asterixis Psychiatric: Orientation: alert and oriented x 3 Genitourinary: no CVA tenderness Results & Data ([facility]) Vital Signs (Past 12 Hours) Vital Signs Temp Pulse Pulse Pulse Resp BP BP 11/18/20 12:05 36.8 C 86 18 168/95 H 11/18/20 11:10 182/112 H 11/18/20 11:07 36.8 C 75 18 11/18/20 07:52 37.0 C 85 20 194/109 H 11/18/20 04:40 204/110 H 11/18/20 03:15 37.0 C 83 20 199/105 H 11/18/20 02:34 88 205/96 H 11/18/20 01:28 36.7 C 82 16 196/115 H 11/18/20 00:45 81 36 H 181/105 H Pulse Ox 11/18/20 12:05 11/18/20 11:10 11/18/20 11:07 98 11/18/20 07:52 95 11/18/20 04:40 11/18/20 03:15 94 11/18/20 02:34 11/18/20 01:28 96 11/18/20 00:45 93 PG Care Time/CCT Total # of Minutes Spent Total Time Spent with Patient: Total time spent is greater than 50% in coordination of care (as documented) at patient's floor/unit and/or counseling patient: Coding Level of Care Code 88890 Inpt Consult Level 5 Diagnoses ESRD (end stage renal disease) N18.6 Peritoneal dialysis catheter in place Z99.2 Hypertension I10 Kidney transplant recipient Z94.0
[2020-11-18 16:04] LABS: Appearance Peritoneal Fluid HAZY; Basophils, Fluid 0 %; Color Peritoneal Fluid COLORLESS; Eosinophils, Fluid 33 %; Lymphocytes, Fluid 28 %; Mono,Macrophage,Mesothelial 21 %; Neutrophils, Fluid 18 %; RBC Peritoneal Fluid (A) 4000 /uL; WBC Peritoneal Fluid (A) 419 /ul (0-300)
[2020-11-18] MEDS ORDERED: CEFEPIME 500 MG in SYRINGE 0 ML IV SCH (19:00)
--- NOTE | 2020-11-18 19:03 | Billing Data ---
Date of Service November 18, 2020 Coding Level of Care Code 86762 Subseq Obs Care Lvl 3
[2020-11-18] MEDS ORDERED: cloNIDine HCL 0.1 MG TAB PO ONE (20:05)
[2020-11-18] MEDS: minoxidiL 2.5 MG TAB PO SCH (20:50)
[2020-11-18] MEDS: carvediloL 25 MG TAB PO SCH (20:50)
[2020-11-18] MEDS: amLODIPine BESYLATE 5 MG TAB PO SCH (20:51)
[2020-11-18] MEDS ORDERED: MELATONIN 3 MG TAB PO PRN (23:14)
--- NOTE | 2020-11-19 03:24 | Billing Data ---
Date of Service November 19, 2020 Coding Level of Care Code INT OBSERVATION CARE 70M LVL 3
[2020-11-19] MEDS ORDERED: LORazepam 0.5 MG/1 ML VIAL IV STA (03:50)
--- NOTE | 2020-11-19 05:58 | Electrocardiogram Report ---
Test Reason : Blood Pressure : / mmHG Vent. Rate : 081 BPM Atrial Rate : 081 BPM P-R Int : 150 ms QRS Dur : 092 ms QT Int : 400 ms P-R-T Axes : 041 010 038 degrees QTc Int : 464 ms Normal sinus rhythm Normal ECG When compared with ECG of 14-NOV-2020 18:47, QT has lengthened Confirmed by Tex Aguirre ([id number]) on 11/19/2020 5:58:10 AM Referred By: REFERRED SELF Confirmed By:Tex Aguirre
--- NOTE | 2020-11-19 06:09 | Hospitalist Progress Note ---
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 Kaur, as well as recent LEFT nipple biopsy who presented with fever and increased somnolence following a recent discharge for pyelonephritis AND in the setting of recent PD catheter placement last week. He is hemodynamically stable. Fever -- concern for possible peritoneal-dialysis associated peritonitis vs. allograft rejection * Recently discharged on 11/15 for possible pyelonephritis (fever, flank pain, perinephric stranding on CT) * Found to have T 101.5 at dialysis alongside lethargy and confusion Sunday morning and at dialysis -- had not taken any of outpatient antibiotics following discharge * Work-up as follows: -- No temperature, leukocytosis since arrival. Procal mildly elevated to 0.93 -- Clinically, no abdominal / back pain. Mentating appropriately -- BCX: NGTD -- Initial peritoneal sample: Liseth-cloudy, ~1170 WBCs, 68542 RBCs: approx. 440 PMNs Gram stain (-), culture pending -- Repeat peritoneal sample: Hazy, 420 WBCs (18% PMNs), 4000 RBCs -- CT-A/P: Trace ascites, hydronephrotic kidney, bladder wall thickening * Continue cefepime, vancomycin IV for broad-spectrum coverage for now --> can consider transitioning over to ciprofloxacin when nearing discharge * Nephrology consulted, appreciate insight and recommendations: -- Spoke with [facility] Transplant team, reviewed CT findings: clinical appearance c/f transplant rejection -- Continue treatment for suspected peritonitis -- repeating fluid tests today on fresh draw -- Start prednisone 10mg / day while awaiting as treatment for possible rejection -- Appreciate insight on need for PD catheter replacement * Await fluid sample culture -- consider additional sample in 3 days post therapy Left Nipple Induration -- likely minior infectious component * Recently s/p biopsy of infraaleolar tissue mass (per patient) - was told it was fatty tissue (?lipoma) * Concern this may be desk representative of underlying inflammatory changes (e.g., scar) vs. infection * Given this has been ongoing for a month -- OK for cefdinir, which should give good coverage, as above -- Reassess as outpatient. Consider aspiration and culture vs. ultrasonography -- If unimproved and persistence of concern for infection continues, would add MRSA coverage * Will attempt aspiration today Chronic, Refractory HTN -- BPs occasionally exceeding >220/110, asymptomatic * In setting of ESRD requiring PD t.i.w. * Continue home clonidine p.o. and transdermal * Continue losartan, amlodipine, carvedilol, and minoxidil * Hydralazine 10mg p.r.n. ESRD -- BUN/Cr at 28/11.80 following PD on Sunday, 11/17 * Follows with Dr. Kaur in [facility] Nephrology as an outpatient * Recently s/p placement of a peritoneal dialysis catheter - MWF * Consult Neprhology on admission given possible need for dialysis during course here * Likely dialysis today Normocytic Anemia -- likely secondary to ESRD/chronic disease * Hgb stable between 9 - 10.8 on daily labs Code: FULL CODE Dispo: MS/T PPX: SCDs Diet: Renal (2) Fever: (3) ESRD (end stage renal disease): (4) Hypertension: (5) Anemia: Admission and Anticipated Discharge Date Admission Date: November 17, 2020 Subjective NAEO. Feeling ok this morning. Does feel like he's having a tough time stringing together words while texting -- which is usual for him. Not having trouble speaking. No weakness in fingers. No numbness/tingling/changes in vision. Denies any abdominal pain this AM. No nausea or vomiting. Breathing ok. No chest discomfort Review of Systems Review of Systems: as per HPI Physical Exam Physical Exam: General: Well appearing 45-year-old male who is lying back in his hospital bed, relaxed, upon my arrival. NAD. HEENT: NCAT. Eyes - Sclera are white, anicteric, and without injection. Mouth - MMM with no tonsillar edema or exudates. Cardiac: Normal rate and regular rhythm; S1 and S2 present with no murmurs, rubs, or gallops. Pulmonary: Good respiratory effort with symmetric expansion of the chest. No use of accessory muscles. Lungs were clear to auscultation bilaterally with no crackles or wheezes. Abdominal: Normoactive bowel sounds. PD catheter covered with a clean dressing, in place. Very mild distention. No TTP. No CVA tenderness. Neuro: UE, LE strength 5/5 bilaterally. Sensation to light touch grossly in tact. Extremities: Upper and lower extremities are warm and well perfused. Radial and dorsalis pedis pulses were 2+ b/l. No peripheral edema. Results & Data Results & Data ([facility]) Vital Signs (Past 12 Hours) Vital Signs Temp Pulse Resp BP Pulse Ox 11/19/20 00:05 36.8 C 87 18 180/94 H 97 11/18/20 20:02 182/101 H 11/18/20 19:00 36.9 C 100 H 18 98 Resident Activity Tracking Resident Involvement: Resident Care Provided Care Provided: Adult [facility] Medicine (1) Anemia Anemia type: due to chronic kidney disease Chronic kidney disease stage: on chronic dialysis Qualified Code(s): N18.6 - End stage renal disease; D63.1 - Anemia in chronic kidney disease; Z99.2 - Dependence on renal dialysis
[2020-11-19 06:30] LABS: Basophils # (auto) 0.01 K/uL (0-0.2); Basophils % (auto) 0.2 %; Eosinophils # (auto) 0.69 K/uL (0-0.5); Eosinophils % (auto) 11.6 %; Hematocrit (blood only) 27.5 % (42-52); Hemoglobin 9.3 g/dL (14.0-18.0); Immature Granulocytes # (auto) 0.03 K/uL (0.00-0.02); Immature Granulocytes % (auto) 0.5 %; Lymphocytes # (auto) 1.36 K/uL (1.2-3.4); Lymphocytes % (auto) 22.8 %; Mean Corpuscular Hemoglobin 30.7 pg (25-34); Mean Corpuscular Hgb Conc 33.8 g/dL (32-36); Mean Corpuscular Volume 90.8 fL (80-100); Mean Platelet Volume 9.7 fL (7.4-10.4); Monocytes # (auto) 0.56 K/uL (0.11-0.59); Monocytes % (auto) 9.4 %; Neutrophils # (auto) 3.32 K/uL (1.4-6.5); Neutrophils % (auto) 55.5 %; Platelet Count 181 K/uL (130-400); RDW Coefficient of Variation 14.7 % (11.5-14.5); RDW Standard Deviation 48.8 fL (36.4-46.3); Red Blood Count 3.03 M/uL (4.7-6.1); White Blood Count 5.97 K/uL (4.8-10.8)
[2020-11-19 07:13] LABS: Albumin Globulin Ratio 0.6 (0.9-2); Albumin Level 2.6 gm/dl (3.4-5.0); BUN Creatinine Ratio 2.7 (10-20); Bilirubin,Total 0.4 mg/dl (0.2-1); Calcium 9.2 mg/dl (8.5-10.1); Creatinine Clr Calc Pharmacy 7.2 ml/min; Est GFR (African American) 4.3 ml/min; Est GFR (Non-African American) 3.7 ml/min; Globulin 4.1 gm/dl (2.5-4.0); Potassium 4.8 mmol/L (3.5-5.1); Total Protein 6.7 gm/dl (6.4-8.2)
[2020-11-19] MEDS: CHECK CLONIDINE PATCH PLACEMENT SCH ×2 (08:22→17:19)
[2020-11-19] MEDS: predniSONE 10 MG TABLET PO SCH (08:22)
[2020-11-19] MEDS: CALCITRIOL 0.25 MCG CAPSULE PO SCH (08:22)
[2020-11-19] MEDS: PANTOprazole 40 MG TAB PO SCH (08:23)
[2020-11-19] MEDS: minoxidiL 2.5 MG TAB PO SCH (14:11)
[2020-11-19] MEDS: LOSARTAN POTASSIUM 50 MG TAB PO SCH (14:11)
[2020-11-19] MEDS: cloNIDine HCL 0.1 MG TAB PO SCH (14:12)
[2020-11-19] MEDS: carvediloL 25 MG TAB PO SCH (14:13)
[2020-11-19 14:35] LABS: Appearance Peritoneal Fluid CLEAR; Basophils, Fluid 6 %; Color Peritoneal Fluid PALE YELLOW; Eosinophils, Fluid 24 %; Lymphocytes, Fluid 38 %; Mono,Macrophage,Mesothelial 31 %; Neutrophils, Fluid 1 %; RBC Peritoneal Fluid (A) < 3000 /uL; WBC Peritoneal Fluid (A) 308 /ul (0-300)
--- NOTE | 2020-11-19 15:39 | Nephrology Progress Note ---
Date of Service November 19, 2020 Assessment & Plan (1) ESRD (end stage renal disease): Plan: MWF HD. Orders for HD today entered into EMR and reviewed with dialysis nurse. UF goal 4 L, as tolerated. Next HD will be Sunday. [facility] anticipating Suraj for treatment Sunday. PD catheter will be flushed at the dialysis unit. Vanco will be provided post treatment. Medications currently appropriately dosed for IHD. Vanco dosing post HD. (2) Peritoneal dialysis catheter in place: Plan: PD peritonitis. Cultures negative to date. Plan to treat with 14 days of cipro and vanco. Vancomycin has been ordered through the outpatient dialysis unit. Catheter to remain in place. (3) Hypertension: Plan: Notable history of poorly controlled hypertension. Suraj denies symptoms. Home Rx clonidine patch @ 0.1 (additional 0.1 twice daily PO PRN), amlodipine 10 mg, carvedilol 25 BID, losartan 100, and minoxidil 5 mg daily has been increased to twice daily. Plan to continue home medications as Rx. Hope to see some improvement. (4) Kidney transplant recipient: Plan: Clinical presentation concerning for symptomatic rejection. Prednisone 10 mg daily. Follow up with transplant post discharge. Admission and Anticipated Discharge Date Admission Date: November 17, 2020 Subjective No acute events overnight. Suraj was seen and evaluated during hemodialysis this morning. He was tolerating HD well. Initially some improvement in BP noted but started to rise post treatment. Antihypertensives held pretreatment. UF challenge provided. No fevers or chills. Suraj denies any abdominal pain. No flank pain. No urine output. He would like to be discharged home today. Review of Systems Review of Systems: All systems reviewed & are unremarkable except as noted in HPI & below Physical Exam Constitutional: well developed; no acute distress Eyes: no scleral abnormality and no corneal abnormality ENMT: Mouth: no oral mucosal abnormality and oral mucous membranes not dry Neck: normal visual inspection and trachea midline Respiratory: normal respiratory effort Auscultation: lungs clear to auscultation bilaterally Cardiovascular: Rate/Rhythm: regular rate Heart Sounds: normal S1 and normal S2 Extremities: + AV fistula; no edema Gastrointestinal (Abdomen): Inspection/Auscultation: abdomen not distended Percussion/Palpation: + abdomen tender (mild tenderness over the left lower quardrant allograft) and abdomen soft; no guarding and no ascites Musculoskeletal: Extremities: no cyanosis and no clubbing Skin: normal turgor; no lesions Neurologic: Motor/Sensory: no tremor and no asterixis Psychiatric: Orientation: alert and oriented x 3 Genitourinary: no CVA tenderness Results & Data ([facility]) Vital Signs (Past 12 Hours) Vital Signs Temp Pulse Pulse Pulse Resp BP BP 11/19/20 15:09 36.5 C 72 17 196/96 H 11/19/20 14:10 37.1 C 78 178/101 H 11/19/20 14:09 36.7 C 82 16 198/106 H 11/19/20 13:20 75 164/91 H 11/19/20 13:00 76 195/119 H 11/19/20 12:40 74 173/112 H 11/19/20 12:30 37.1 C 77 16 11/19/20 12:20 77 176/113 H 11/19/20 12:00 37.0 C 82 82 16 186/111 H 186/111 H 11/19/20 11:40 80 182/109 H 11/19/20 11:20 87 180/103 H 11/19/20 11:00 87 180/103 H 11/19/20 10:40 80 176/91 H 11/19/20 10:20 76 165/85 H 11/19/20 10:00 75 180/99 H 11/19/20 09:51 84 160/103 H 11/19/20 09:36 37.0 C 85 11/19/20 07:43 160/102 H 11/19/20 07:34 36.9 C 89 18 189/107 H Pulse Ox 11/19/20 15:09 99 11/19/20 14:10 11/19/20 14:09 99 11/19/20 13:20 11/19/20 13:00 11/19/20 12:40 11/19/20 12:30 11/19/20 12:20 11/19/20 12:00 11/19/20 11:40 11/19/20 11:20 11/19/20 11:00 11/19/20 10:40 11/19/20 10:20 11/19/20 10:00 11/19/20 09:51 11/19/20 09:36 11/19/20 07:43 11/19/20 07:34 95 Laboratory Results Laboratory Results - last 24 hr 11/18/20 11/19/20 11/19/20 14:25 06:08 06:08 WBC 5.97 RBC 3.03 L Hgb 9.3 L Hct 27.5 L MCV 90.8 MCH 30.7 MCHC 33.8 RDW Std Deviation 48.8 H RDW Coeff of Adam 14.7 H Plt Count 181 MPV 9.7 Immature Gran % (Auto) 0.5 Neut % (Auto) 55.5 Lymph % (Auto) 22.8 [place] % (Auto) 9.4 Eos % (Auto) 11.6 Baso % (Auto) 0.2 Neut # (Auto) 3.32 Lymph # (Auto) 1.36 [place] # (Auto) 0.56 Eos # (Auto) 0.69 H Baso # (Auto) 0.01 Immature Gran # (Auto) 0.03 H Sodium 135 L Potassium 4.8 Chloride 98 Carbon Dioxide 26 Anion Gap 10.0 BUN 38 H Creatinine 14.00 H* D Est Cr Clr Drug Dosing 7.2 Est GFR ( Amer) 4.3 Est GFR (Non-Af Amer) 3.7 BUN/Creatinine Ratio 2.7 L Glucose 103 H Calcium 9.2 Total Bilirubin 0.4 AST 11 L ALT 9 L Alkaline Phosphatase 62 Total Protein 6.7 Albumin 2.6 L Globulin 4.1 H Albumin/Globulin Ratio 0.6 L Fluid Neutrophils % 18 Fluid Lymphocytes % 28 Fluid Eosinophils % 33 Fluid Basophils % 0 Fluid Meso/Macro/[place] % 21 Fluid Comment Peritoneal Color COLORLESS Peritoneal Appearance HAZY Peritoneal WBC 419 H Peritoneal RBC 4000 11/19/20 12:40 WBC RBC Hgb Hct MCV MCH MCHC RDW Std Deviation RDW Coeff of Adam Plt Count MPV Immature Gran % (Auto) Neut % (Auto) Lymph % (Auto) [place] % (Auto) Eos % (Auto) Baso % (Auto) Neut # (Auto) Lymph # (Auto) [place] # (Auto) Eos # (Auto) Baso # (Auto) Immature Gran # (Auto) Sodium Potassium Chloride Carbon Dioxide Anion Gap BUN Creatinine Est Cr Clr Drug Dosing Est GFR ( Amer) Est GFR (Non-Af Amer) BUN/Creatinine Ratio Glucose Calcium Total Bilirubin AST ALT Alkaline Phosphatase Total Protein Albumin Globulin Albumin/Globulin Ratio Fluid Neutrophils % 1 Fluid Lymphocytes % 38 Fluid Eosinophils % 24 Fluid Basophils % 6 Fluid Meso/Macro/[place] % 31 Fluid Comment Peritoneal Color PALE YELLOW Peritoneal Appearance CLEAR Peritoneal WBC 308 H Peritoneal RBC < 3000 PG Care Time/CCT Total # of Minutes Spent Total Time Spent with Patient: Total time spent is greater than 50% in coordination of care (as documented) at patient's floor/unit and/or counseling patient: Coding Level of Care Code 40643 Subseq Hosp Care Lvl 3 Diagnoses ESRD (end stage renal disease) N18.6 Peritoneal dialysis catheter in place Z99.2 Hypertension I10 Kidney transplant recipient Z94.0
--- NOTE | 2020-11-19 16:19 | Discharge Summary ---
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 He had not taken any of the oral antibiotics yet as the script mentioned that he should take it MWF after dialysis and he had his first dialysis Sunday. He was noted to be febri le to 101.5 at dialysis and they sent him to the ER for further evaluation. He notes that he was confused on Sunday when he woke up. He has had resolution of his left sided back/flank pain that he had prior to last admission and has no abdominal pain. He had a peritoneal dialysis catheter placed on Sunday (11/09) in [place]. His Scale Technician is Dr. Kaur and PCP is Dr. Rasmussen. 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 Kaur, as well as recent LEFT nipple biopsy who presented with fever and increased somnolence following a recent discharge for pyelonephritis AND in the setting of recent PD catheter placement last week, suspected to be secondary to peritonitis vs. possible allograft rejection. Fever -- concern for possible peritoneal-dialysis associated peritonitis vs. al lograft rejection * Recently discharged on 11/15 for possible pyelonephritis (fever, flank pain, perinephric stranding on CT) * Found to have T 101.5 at dialysis alongside lethargy and confusion Sunday morning and at dialysis -- had not taken any of outpatient antibiotics following discharge * Work-up as follows: -- No temperature, leukocytosis since arrival. Procal mildly elevated to 0.93 -- Clinically, no abdominal / back pain. Mentating appropriately -- BCX: NGTD -- Initial peritoneal sample: Liseth-cloudy, ~1170 WBCs, 43331 RBCs: approx. 440 PMNs Gram stain (-), culture pending -- Repeat peritoneal sample: Hazy, 420 WBCs (18% PMNs), 4000 RBCs -- downtrending even further on discharge -- CT-A/P: Trace ascites, hydronephrotic kidney, bladder wall thickening * Likely secondary to peritonitis, however, also possible contribution from allograft rejection * Initially on cefepime/vancomycin --> transitioned to ciprofloxacin 500mg qPM x 14 days on discharge (to complete 7 day course), will also be given vancomycin x 14 days by nephrology * Nephrology consulted, appreciate insight and recommendations: -- Spoke with [facility] Transplant team, reviewed CT findings: clinical appearance c/f transplant rejection -- Continue treatment for suspected peritonitis -- repeating fluid tests today on fresh draw -- Start prednisone 10mg / day while awaiting as treatment for possible rejection -- 21 day course -- Plan to flush catheter at next visit -- 14 days of cipro and vancomycin on d/c for peritonitis * Await fluid sample culture -- consider additional sample in 3 days post therapy Left Nipple Induration -- likely minor infectious component * Recently s/p biopsy of infraaleolar tissue mass (per patient) - was told it was fatty tissue (?lipoma) * Concern this may be agency service representative of underlying inflammatory changes (e.g., scar) vs. infection * Given this has been ongoing for a month -- Reassess as outpatient. Consider aspiration and culture vs. ultrasonography -- If unimproved and persistence of concern for infection continues, would add MRSA coverage Chronic, Refractory HTN -- BPs occasionally exceeding >220/110, asymptomatic * In setting of ESRD requiring PD t.i.w. * Continue home clonidine p.o. and transdermal * Continue losartan, amlodipine, carvedilol, and minoxidil * Hydralazine 10mg p.r.n. ESRD -- BUN/Cr at 28/11.80 following PD on Sunday, 11/17 * Follows with Dr. Kaur in [facility] Nephrology as an outpatient * Recently s/p placement of a peritoneal dialysis catheter - MWF * Consult Neprhology on admission given possible need for dialysis during course here * Dialysis given 11/19 prior to d/c Normocytic Anemia -- likely secondary to ESRD/chronic disease * Hgb stable between 9 - 10.8 on daily labs Code: FULL CODE (2) Fever: (3) ESRD (end stage renal disease): (4) Hypertension: (5) Anemia: Total Time Total Time Spent Total Time Spent (In Minutes): <30 Discharge Plan Discharge Items Patient Disposition: Home - Self-Care Reason For Visit: FEVER, CONCERN FOR PERITONITIS Discharge Diagnosis: peritonitis Condition on Discharge: Fair Activity: Per Instructions section Non-emergency contact: Primary Care Provider and Specialist Call non-emergency contact if: you have any medication questions, your symptoms worsen, your pain is worsening, your pain is unusual for you and your temperature is above 101 Follow-up/Referrals: Robinson Rasmussen, [Primary Care Provider] - (Patient does not see this PCP. Spoke with patient and made patient aware we could not reach his current PCP with the number provided as .) Diet: Dialysis Renal Addtl Attending Provider Instructions: You were seen at [facility] for evaluation of fever and confusion. Upon your arrival here, you underwent several tests to determine the cause of your symptoms. You were found to have high concentrations of white blood cells (defenders of infection) in your belly fluid. Given your presentation and the recent back pain you experienced, your illness is thought to be due to peritonitis (infection of the lining of the abdominal wall) and possibly a component of transplant rejection. You were seen by nephrology while here, who aided in your care. Upon discharge, you will take ciprofloxacin 500mg, nightly, for the next [address] Kaur, nephrology, will administer another antibiotic for you during dialysis. Further, you will take prednisone 10mg daily for a total of 21 days fo r the transplant rejection concerns. Upon discharge, please follow-up with your PCP within 1 week to review this visit. If you experience worsening fevers, chills, night sweats, belly pain, nausea, vomiting, confusion, lightheadedness, dizziness, discharge from catheter site, shortness of breath, headache, changes of vision, or other worrisome symptoms, please report to the ER immediately for evaluation. Otherwise, continue following your regular dialysis schedule. Pending Studies at Discharge: No Stand-Alone Forms: My [facility], Smoking Cessation Medications and DC Order Prescriptions: New carvedilol 25 mg Tablet 25 mg PO BID 30 Days Qty: 60 RF: 1 prednisone 10 mg Tablet 10 mg PO DAILY 19 Days Qty: 19 RF: 0 ciprofloxacin HCl 500 mg tablet 500 mg PO QPM 14 Days Qty: 14 RF: 0 Continued pantoprazole 40 mg Tablet,Delayed Release (Dr/Ec) 40 mg PO BID Qty: 60 RF: 0 clonidine HCl 0.1 mg tablet 0.1 mg PO QAM RF: 0 clonidine 0.1 mg/24 hr patch weekly 1 patch transdermal WK RF: 0 amlodipine 10 mg tablet 10 mg PO PM RF: 0 losartan 100 mg tablet 100 mg PO QAM RF: 0 calcitriol 0.25 mcg capsule 0.25 mcg PO QAM RF: 0 minoxidil 2.5 mg Tablet 5 mg PO QAM 10 Days Qty: 20 RF: 0 Discontinued cefdinir 300 mg capsule 300 mg PO .COMPLEX Qty: 10 RF: 0 Discharge Orders: Discharge Order (Routine); Ordered 11/19/20 Ordered By: Wyatt Spencer Admission Data Admit Date/Time: 11/17/20 20:44 Attending Provider: Wyatt Linton Admit Provider: Aakash Stern Primary Care Provider: Robinson Rasmussen Other Providers: Roger Dominguez Kevin C. Other Interventions: Discharge Summary Assessment (RN) Last Done: 11/19/20 16:40 Supervising Physician Co-Signing Physician Notes I personally examined the patient and verified all laboy points of history and exam, discussed case, and agree with decision making with Dr Spencer Feels up to going home, input from nephrology appreciatedstable for home. roma noted nad heent nc at mmm abd soft nt no focal neuro deficit skin without rashes pallor or icterus Peritonitisperitoneal fluid improvingstable for home. Finish course of treatment with Cipro p.o., Vanco IV after dialysis Possible ongoing rejection of already failed renal transplantprednisone for the next 3 weeks, ongoing outpatient follow-up DVT prophylaxisambulation Stable for home. Otherwise as above.
--- NOTE | 2020-11-19 20:36 | Billing Data ---
Date of Service November 19, 2020 Coding Level of Care Code 99993 OBS Care - Discharge
--- NOTE | 2020-11-19 20:36 | Billing Data ---
Date of Service November 19, 2020 Coding Level of Care Code 86622 OBS Care - Discharge
[2020-11-21] MEDS ORDERED: cloNIDine HCL 0.1 MG/24 HR TRANSDERM SYS TD SCH (09:00)
== END 2020-11-19 17:40 | disposition home or self-care (01) ==
LOC: ED 11:17 → 2N 11:17 → SUATTDRO 20:44 → 2N 11-18 00:55 → 3N 11-18 20:26